=== PATIENT | female | born 1950 | race Caucasian/White ===

== ENCOUNTER 2019-11-17 11:58 | Outpatient (CLI) | payer MEDICARE, SELFPAY ==
--- NOTE | 2019-11-17 12:08 | CT_ITS ---
WS: [id number] CT ABDOMEN AND PELVIS WITH CONTRAST HISTORY: HEPATOMEGALY TECHNIQUE: Imaging performed of the abdomen and pelvis with IV contrast. Single phase imaging of the abdomen. Coronal and sagittal reformats are submitted. All CT scans at [facility] use at least one of these dose optimization techniques: automated exposure control; mA and/or kV adjustment per patient size (includes targeted exams where dose is matched to clinical indication); or iterativ e reconstruction. IV CONTRAST: Omnipaque 300; 95 mL IV. Oral contrast: No DLP: 1103.77 mGycm COMPARISON: 03/01/2015 Lower thorax: Lung bases are clear. Heart is normal size. Small hiatal hernia. Liver/biliary system: Surface of the liver is very slightly irregular nodular. No enhancing masses or bile duct dilatation. Surgical changes are progressed since 2014. Gallbladder: Prior cholecystectomy. Pancreas: Normal. Spleen: Spleen is top normal size. Adrenal glands: Normal. Right kidney: Normal. Left kidney: Normal. Aorta: Mild atherosclerosis of aorta. No aneurysm. Lymphadenopathy: None. Free fluid: None. GI tract: No GI tract obstruction. The appendix is normal. No significant diverticular disease. There is a large ventral abdominal wall hernia with a neck measuring 7.3 cm. Through the hernia is a loop of transverse colon which is not obstructed. There is some adjacent subcutaneous fat stranding within the hernia sac but no fluid. No ischemic changes in the GI tract. Abdominal wall: Ventral abdominal wall hernia containing transverse colon with no obstruction. Pelvis: Prior hysterectomy. No free fluid or adenopathy in the pelvis. LEFT adnexal well-circumscribe d low-attenuation mass is probably an ovarian cyst measuring 3.6 x 3.7 cm. Bones: LEFT convex curvature lumbar spine. No fracture. CT/CT abdomen pelvis w con* [id number] IMPRESSION: 1. Changes of mild cirrhosis. New since 03/01/2015. 2. Prior cholecystectomy and hysterectomy. 3. Large ventral abdominal wall hernia containing transverse colon. No obstruc tion or ischemic changes. 4. LEFT adnexal cyst.
[2019-11-17] MEDS: iohexol 300 mg/mL 100 mL Btl IV (12:49)
== END 2019-11-17 11:59 | disposition home or self-care (01) ==
LOC: RADWPI 12:05
PROVIDERS: Family Provider Family Medicine; PCP Family Medicine; Visit Provider Family Medicine
DX: R16.0 Hepatomegaly, not elsewhere classified (principal); K43.9 Ventral hernia without obstruction or gangrene
CPT/HCPCS: 74177; Q9967

== ENCOUNTER → 2023-03-30 15:33 | Outpatient (BNVA) | payer MEDICARE, SELFPAY | PROVIDERS: Family Provider Family Medicine; PCP Family Medicine; Visit Provider Family Medicine | DX: Z51.81 Encounter for therapeutic drug level monitoring (principal); E11.9 Type 2 diabetes mellitus without complications; E53.8 Deficiency of other specified B group vitamins; E55.9 Vitamin D deficiency, unspecified; R53.83 Other fatigue; Z13.220 Encounter for screening for lipoid disorders | CPT/HCPCS: 80053; 80061; 82306; 82607; 83036; 84443; 85025 ==

== ENCOUNTER → 2023-05-20 15:26 | Outpatient (BNVA) | payer MEDICARE, SELFPAY | PROVIDERS: PCP Family Medicine; Visit Provider Family Medicine | DX: Z51.81 Encounter for therapeutic drug level monitoring (principal); M79.10 Myalgia, unspecified site; I10 Essential (primary) hypertension | CPT/HCPCS: 80053; 83735; 85025 ==

== ENCOUNTER 2023-06-01 08:37 | Outpatient (CLI) | payer MEDICARE, SELFPAY ==
--- NOTE | 2023-06-01 08:50 | US_ITS ---
WS: [id number] RIGHT UPPER QUADRANT ULTRASOUND HISTORY: Cirrhosis, peripheral edema COMPARISON: 03/12/2016 Liver: 15.6 cm in length. Normal size liver. Coarse echotexture throughout with lobulated margin. Nod ular margin with no mass. No bile duct dilatation. Portal Vein: Normal hepatopetal flow with monophasic waveform. Gallbladder: Prior cholecystectomy. CBD: 0.7 cm Pancreas: Partially obscured. Right kidney: 9.5 cm in length. Normal size and echogenicity. No hydronephrosis or mass. Aorta and IVC: Unremarkable abdominal aorta and IVC. No ascites. IMPRESSION: 1. Prior cholecystectomy. 2. Cirrhotic liver. No mass. No ascites.
--- NOTE | 2023-06-01 08:50 | USCV_ITS ---
Jaylin Resendez Age: 73 Gender: F : 1950 Exam Date: 06/01/2023 09:03 Ordering Phys: Gildardo Childers MD Technologist: Khushbu Bustamante [place] [facility] [place]ication: VERY SWOLLEN LEGS BP: 120 / 60 HR: 74 Rhythm: Sinus Technical Quality: Adequate MEASUREMENTS (Male / Female) Normal Values 2D ECHO LV Diastolic Diameter PLAX 4.8 cm 4.2 - 5.9 / 3.9 - 5.3 cm LV Systolic Diameter PLAX 3.3 cm LV Chamber Size 3.9 cm IVS Diastolic Thickness 1.0 cm 0.6 - 1.0 / 0.6 - 0.9 cm IVS Systolic Thickness 1.3 cm LVPW Diastolic Thickness 1.4 cm 0.6 - 1.0 / 0.6 - 0.9 cm LVPW Systolic Thickness 1.5 cm RV Chamber Size 3.5 cm LVOT Diameter 2.0 cm LV Ejection Fraction 2D Teich 49.7 % LV Ejection Fraction MOD 2C 33.9 % LV Ejection Fraction 2C AL 33.2 % LA Diameter 4.2 cm LA Width 3.1 cm LA Height 4.5 cm RA Width 3.3 cm RA Height 3.9 cm Aorta at Sinotubular Diameter 3.0 cm IVC Diameter 1.8 cm M-MODE Aortic Annulus Diameter 3.3 cm LA Ao Ratio MM 1.5 MV E Point Septal Separation 0.4 cm DOPPLER AV Peak Velocity 178.0 cm/s LVOT Peak Velocity 105.0 cm/s AV Area Cont Eq vti 2.0 cm squared AV Area Cont Eq pk 1.9 cm squared MV Area PHT 3.6 cm squared Mitral E to A Ratio 1.1 MV E' Velocity 48.5 cm/s Mitral E to MV E' Ratio 11.0 Mitral E to LV E' Lateral Ratio 9.7 Mitral E to LV E' Septal Ratio 12.8 TR Peak Velocity 165.6 cm/s TR Peak Gradient 11.0 mmHg TR Mean Velocity 137.4 cm/s TR Mean Gradient 7.9 mmHg TR Velocity Time Integral 44.0 cm TV Peak E Velocity 56.0 cm/s Right Atrial Pressure 3.0 mmHg Pulmonary Artery Systolic Pressu 14.0 mmHg RV Acceleration Time 0.3 s RV Ejection Time 0.4 s RV AcT/ET 0.6 FINDINGS Left Ventricle Normal left ventricular size and systolic function, EF 60 %. (visual). Mild concentric left-ventricular hypertrophy. Right Ventricle Possibly of normal size and ejection fraction Right Atrium Possibly of normal size Left Atrium Possibly of normal size Mitral Valve Moderate mitral annular calcification. Aortic Valve No gross abnormalities noted Tricuspid Valve No gross abnormalities noted Pulmonic Valve Pulmonic valve not well visualized. Pericardium No pericardial effusion. Aorta Normal aortic annulus size. IVC Normal inferior vena cava. CONCLUSIONS Normal left ventricular size and systolic function, EF 60 %. (visual). Mild concentric left-ventricular hypertrophy. Possibly normal cardiac chamber sizes. Normal RV size ejection fraction There is no pericardial effusion. Possibly normal PA pressure-could not be evaluated properly because of the poor Doppler signals Technically somewhat limited study. Dr Symone Ellis MD FACC (Electronically Signed) Final Date: 03 June 2023 09:14 S
--- NOTE | 2023-06-01 08:52 | CT_ITS ---
WS: [id number] CT ABDOMEN AND PELVIS NONCONTRAST HISTORY: LLQ ABD PAIN TECHNIQUE: Imaging performed through the abdomen and pelvis. Coronal and sagittal reformats are submi tted. All CT scans at [facility] use at least one of these dose optimization techniques: auto mated exposure control; mA and/or kV adjustment per patient size (includes targeted exams where dose is matched to clinical indication); or iterative reconstruction. DLP: 1634.23 mGy.cm COMPARISON: 11/17/2019 Lower thorax: Lung bases are clear. Visualized heart is normal. Small hiatal hernia. Liver: Nodular margin of the liver consistent with cirrhosis. No mass identified on this unenhanced e xam. Gallbladder: Prior cholecystectomy. Pancreas: Negative noncontrast evaluation. Spleen: Enlarged spleen at 13.9 cm in length. Splenic varices are noted in the LEFT upper quadrant. Adrenal glands: Normal. No mass. Right kidney: Normal size kidney with no mass or hydronephrosis. Left kidney: Normal size kidney with no mass or hydronephrosis. Aorta: Mild atherosclerosis abdominal aorta with no aneurysm. No free fluid, intraperitoneal air or significant lymphadenopathy. GI tract: Stomach contains a small amount of oral contrast. No small bowel obstruction. Diffuse moder ate constipation and fecal retention. Moderate-sized ventral abdominal wall hernia contains a loop of colon but there is no obstruction at this time. This is a redundant loop placing the patient at incr eased risk for incarceration. No significant diverticular disease. Abdominal wall: Moderate ventral abdominal wall hernia with herniating loop of colon. No obstruction. Pelvis: Prior hysterectomy. There is mild presacral soft tissue but I believe this is artifact due to patient's body habitus. 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 IMPRESSION: 1. Cirrhosis with evidence for portal hypertension. 2. Prior cholecystectomy and hysterectomy. 3. Moderate size ventral abdominal wall hernia contains a loop of colon. No obstruction at this time . 4. No ascites. 5. Diffuse moderate constipation.
[2023-06-01] MEDS: iohexol 350 mg/mL 500 mL Btl (per mL) PO (10:48)
--- NOTE | 2023-06-01 11:34 | XR_ITS ---
WS: [id number] Left hip, AP and frog-leg views, 06/01/2023 Clinical Data: Left hip pain Comparison: None. Findings: No fractures or dislocations are seen. The hip joint is intact. No left hip narrowing, erosion, scler osis or fragmentation of the left femoral head is seen. The soft tissues are not remarkable. The samantha cent pelvis is normal. Impression: Negative left hip. Tonnis classification: grade 0: normal radiographs
== END 2023-06-01 08:38 | disposition home or self-care (01) ==
LOC: RAD 08:37
PROVIDERS: PCP Family Medicine; Visit Provider Family Medicine
DX: K74.60 Unspecified cirrhosis of liver; R60.9 Edema, unspecified; R01.1 Cardiac murmur, unspecified; M25.552 Pain in left hip; R10.32 Left lower quadrant pain; K76.6 Portal hypertension; K43.9 Ventral hernia without obstruction or gangrene; K59.09 Other constipation
CPT/HCPCS: 73502; 74176; 76705; 93306; Q9967

== ENCOUNTER 2023-07-02 19:13 | Outpatient (CLI) | payer MEDICARE, SELFPAY | END 2023-07-02 19:14 | disposition home or self-care (01) | LOC: LAB 19:14 | PROVIDERS: PCP Family Medicine; Visit Provider Family Medicine | DX: Z01.89 Encounter for other specified special examinations (principal) | CPT/HCPCS: 87070; 87077; 87186 ==

== ENCOUNTER → 2023-07-13 13:04 | Outpatient (BNVA) | payer MEDICARE, SELFPAY | PROVIDERS: PCP Family Medicine; Visit Provider Thoracic Surgery (Cardiothoracic Vascular Surgery) | DX: E11.52 Type 2 diabetes mellitus with diabetic peripheral angiopathy with gangrene (principal); E11.622 Type 2 diabetes mellitus with other skin ulcer; L97.812 Non-pressure chronic ulcer of other part of right lower leg with fat layer exposed; E11.621 Type 2 diabetes mellitus with foot ulcer; L89.612 Pressure ulcer of right heel, stage 2 | CPT/HCPCS: 11042; 11045; 99213 ==

== ENCOUNTER → 2023-07-27 13:32 | Outpatient (BNVA) | payer MEDICARE, SELFPAY | PROVIDERS: PCP Family Medicine; Visit Provider Nurse Practitioner Family | DX: E11.52 Type 2 diabetes mellitus with diabetic peripheral angiopathy with gangrene (principal); E11.622 Type 2 diabetes mellitus with other skin ulcer; L97.812 Non-pressure chronic ulcer of other part of right lower leg with fat layer exposed; L97.412 Non-pressure chronic ulcer of right heel and midfoot with fat layer exposed; E11.621 Type 2 diabetes mellitus with foot ulcer | CPT/HCPCS: 11042; 11045 ==

== ENCOUNTER → 2023-08-30 11:25 | Outpatient (BNVA) | payer MEDICARE, SELFPAY | PROVIDERS: PCP Family Medicine; Visit Provider Family Medicine | DX: Z51.81 Encounter for therapeutic drug level monitoring (principal); L97.919 Non-pressure chronic ulcer of unspecified part of right lower leg with unspecified severity | CPT/HCPCS: 80053; 85025; 86141 ==

== ENCOUNTER 2023-10-04 11:03 | Outpatient (CLI) | payer MEDICARE, SELFPAY | END 2023-10-04 11:04 | disposition home or self-care (01) | PROVIDERS: PCP Family Medicine; Visit Provider Family Medicine | DX: L03.115 Cellulitis of right lower limb (principal); L97.919 Non-pressure chronic ulcer of unspecified part of right lower leg with unspecified severity | CPT/HCPCS: 87070 ==

== ENCOUNTER 2024-02-18 15:36 | Outpatient (CLI) | payer MEDICARE, SELFPAY | END 2024-02-18 15:37 | disposition home or self-care (01) | PROVIDERS: PCP Family Medicine; Visit Provider Family Medicine | DX: L97.211 Non-pressure chronic ulcer of right calf limited to breakdown of skin (principal) | CPT/HCPCS: 87070; 87077; 87186 ==

== ENCOUNTER → 2024-03-15 14:59 | Outpatient (BNVA) | payer MEDICARE, SELFPAY | PROVIDERS: PCP Family Medicine; Visit Provider Family Medicine | DX: Z00.00 Encounter for general adult medical examination without abnormal findings; E53.8 Deficiency of other specified B group vitamins; R53.81 Other malaise; R53.83 Other fatigue; E11.9 Type 2 diabetes mellitus without complications; L89.609 Pressure ulcer of unspecified heel, unspecified stage; L97.909 Non-pressure chronic ulcer of unspecified part of unspecified lower leg with unspecified severity; E55.9 Vitamin D deficiency, unspecified | CPT/HCPCS: 82306; 82607; 83036; 84443; 86141 ==

== ENCOUNTER → 2024-09-25 15:19 | Outpatient (BNVA) | payer MEDICARE, SELFPAY | PROVIDERS: PCP Family Medicine; Visit Provider Family Medicine | DX: Z00.00 Encounter for general adult medical examination without abnormal findings (principal); Z13.6 Encounter for screening for cardiovascular disorders; E11.9 Type 2 diabetes mellitus without complications; Z51.81 Encounter for therapeutic drug level monitoring; E55.9 Vitamin D deficiency, unspecified | CPT/HCPCS: 80053; 80061; 82306; 83036; 85025 ==

== ENCOUNTER → 2024-10-31 13:49 | Outpatient (BNVA) | payer MEDICARE, SELFPAY | PROVIDERS: PCP Family Medicine; Visit Provider Thoracic Surgery (Cardiothoracic Vascular Surgery) | DX: E11.52 Type 2 diabetes mellitus with diabetic peripheral angiopathy with gangrene (principal); E11.622 Type 2 diabetes mellitus with other skin ulcer; L97.812 Non-pressure chronic ulcer of other part of right lower leg with fat layer exposed; E11.621 Type 2 diabetes mellitus with foot ulcer; L97.411 Non-pressure chronic ulcer of right heel and midfoot limited to breakdown of skin; I89.0 Lymphedema, not elsewhere classified | CPT/HCPCS: 11042; 29581; 99203; A6252; A6253 ==

== ENCOUNTER → 2024-11-02 15:48 | Outpatient (BNVA) | payer MEDICARE, SELFPAY | PROVIDERS: PCP Family Medicine; Visit Provider Thoracic Surgery (Cardiothoracic Vascular Surgery) | DX: I89.0 Lymphedema, not elsewhere classified (principal); L89.613 Pressure ulcer of right heel, stage 3 | CPT/HCPCS: 29581; A6210; A6251; A6253 ==

== ENCOUNTER → 2024-11-07 13:36 | Outpatient (BNVA) | payer MEDICARE, SELFPAY | PROVIDERS: PCP Family Medicine | DX: E11.52 Type 2 diabetes mellitus with diabetic peripheral angiopathy with gangrene (principal); E11.622 Type 2 diabetes mellitus with other skin ulcer; L97.812 Non-pressure chronic ulcer of other part of right lower leg with fat layer exposed; E11.621 Type 2 diabetes mellitus with foot ulcer; L89.611 Pressure ulcer of right heel, stage 1 | CPT/HCPCS: 97597; A6251 ==

== ENCOUNTER → 2024-11-14 14:23 | Outpatient (BNVA) | payer MEDICARE, SELFPAY | PROVIDERS: PCP Family Medicine; Visit Provider Thoracic Surgery (Cardiothoracic Vascular Surgery) | DX: E11.52 Type 2 diabetes mellitus with diabetic peripheral angiopathy with gangrene (principal); E11.621 Type 2 diabetes mellitus with foot ulcer; L97.411 Non-pressure chronic ulcer of right heel and midfoot limited to breakdown of skin; E11.622 Type 2 diabetes mellitus with other skin ulcer; L97.812 Non-pressure chronic ulcer of other part of right lower leg with fat layer exposed | CPT/HCPCS: 11042; 97597 ==

== ENCOUNTER → 2024-11-21 13:45 | Outpatient (BNVA) | payer MEDICARE, SELFPAY | PROVIDERS: PCP Family Medicine; Visit Provider Thoracic Surgery (Cardiothoracic Vascular Surgery) | DX: E11.52 Type 2 diabetes mellitus with diabetic peripheral angiopathy with gangrene (principal); E11.622 Type 2 diabetes mellitus with other skin ulcer; L97.812 Non-pressure chronic ulcer of other part of right lower leg with fat layer exposed; E11.621 Type 2 diabetes mellitus with foot ulcer; L89.611 Pressure ulcer of right heel, stage 1 | CPT/HCPCS: 11042; 87070; 87176; 87205; 97597; A6197; A6251 ==

== ENCOUNTER → 2024-11-24 10:18 | Outpatient (BNVA) | payer MEDICARE, SELFPAY | PROVIDERS: PCP Family Medicine; Visit Provider Thoracic Surgery (Cardiothoracic Vascular Surgery) | DX: E11.621 Type 2 diabetes mellitus with foot ulcer (principal); L89.613 Pressure ulcer of right heel, stage 3; I89.0 Lymphedema, not elsewhere classified | CPT/HCPCS: 11042; 29581; 97597; A6197; A6253 ==

== ENCOUNTER → 2024-11-29 10:06 | Outpatient (BNVA) | payer MEDICARE, SELFPAY | PROVIDERS: PCP Family Medicine; Visit Provider Thoracic Surgery (Cardiothoracic Vascular Surgery) | DX: E11.621 Type 2 diabetes mellitus with foot ulcer (principal); L89.613 Pressure ulcer of right heel, stage 3; I89.0 Lymphedema, not elsewhere classified | CPT/HCPCS: A6197; A6253 ==

== ENCOUNTER → 2024-12-06 14:19 | Outpatient (BNVA) | payer MEDICARE, SELFPAY | PROVIDERS: PCP Family Medicine; Visit Provider Thoracic Surgery (Cardiothoracic Vascular Surgery) | DX: E11.52 Type 2 diabetes mellitus with diabetic peripheral angiopathy with gangrene (principal); E11.622 Type 2 diabetes mellitus with other skin ulcer; L97.811 Non-pressure chronic ulcer of other part of right lower leg limited to breakdown of skin; E11.621 Type 2 diabetes mellitus with foot ulcer; L89.611 Pressure ulcer of right heel, stage 1 | CPT/HCPCS: 11042; A6197; A6250; A6251; J9999 ==

== ENCOUNTER 2024-12-09 14:36 | Inpatient (IN) | payer MEDICARE, SELFPAY ==
--- OUTSIDE RECORDS SUMMARY | 2024-07-13 10:20 | XMS_ITS ---
Author Organization [facility] Address [address] [place], [place] [id number] Care Team Providers Care Construction Manager Name Role Phone Gildardo Childers MD Primary Care Provider Boris Conway MD, Dawson Unavailable [phone] Allergies No Known Allergies REASON FOR VISIT Patient states she is here today for low back pain. Medications Medication SIG (Take, Route, Frequency, Duration) Notes Start Date End Date Status OxyCODONE Hydrochloride 15 mg 1 tab orally Q4H prn pain (max 4/day; hold within 4H of planned sleep) for 28 days Do not fill prior to 08/10/24. ICD-10: G89.29 07/13/2024 Active sulfamethoxazole-trimetho prim 800 mg-160 mg 1 tab(s) orally every 12 hours for 10 day(s) 03/09/2024 Active OxyCODONE Hydrochloride 15 mg 1 tab orally Q4H prn pain (max 4/day; hold within 4H of planned sleep) for 28 days ICD-10: G89.29 07/13/2024 Active Vitamin D3 5000 intl units as directed orally once a day for 30 day(s) 02/18/2021 Active spironolactone 25 mg 1 tab orally once daily for 30 day(s) Active omeprazole 20 mg 1 cap(s) orally once a day for 30 day(s) 03/09/2024 Active omeprazole 40 mg 1 cap orally once a day Active simvastatin 5 mg 1 tab orally once a day (at bedtime) Active ProAir HFA 90 mcg/inh 2 puffs inhaled every 6 hours Active prochlorperazine 10 mg 1 tab po orally Q ID prn nausea Active Lotemax 0.5% 2 gtt in each affected eye 4 times a day Active Lotrisone 0.05%-1% 1 paulino applied topically BID, PRN for 10 day(s) Active metoprolol 50 mg 1 tab orally BID for 30 day(s) Active Nitroquick 0.4 mg 1 tab sublingually every 5 minutes for 3 dose(s) Active Imitrex 1 tab orally PRN onset of migraine for 1 dose(s) Active Combivent 90 mcg-18 mcg/inh 1 puff inhaled Q4H, PRN for 30 day(s) Active cyclobenzaprine 10 mg 1 tab(s) orally 3 times a day Active hydrochlorothiazide-lisin opril 10 mg-12.5 mg 1 tab orally once a day for 7 day(s) Active doxycycline hyclate 100 mg 1 cap(s) orally 2 times a day for 10 day(s) Active gabapentin 100 mg 1 cap(s) orally 3 times a day for 30 day(s) Active BromSite 0.075% 1 gtt in each affected eye 2 times a day Active cefdinir 300 mg 1 cap(s) orally every 12 hours for 10 day(s) Active Social History alcohol Question Answer Notes Did you have a drink containing alcohol in the p ast year? No Points 0 Interpretation Negative Vital Signs Temperature 97.1 degrees Fahrenheit 07/13/20 24 Height 63 in 07/13/2024 Oximetry 96 % 07/13/2024 Encounters Encounter Location Date Provider Diagnosis [facility], [address] [id number] 07/13/2024 Dawson Conway Vertebrogenic low ba ck pain M54.51 ; Other chronic pain G89.29 and Other sleep disorders G47.8 Assessments Encounter Date Diagnosis (ICD Code) Assessment Notes Treatment Notes Treatment Clinical Notes Section Notes 07/13/2024 Vertebrogenic low back pain (ICD-10 - M54.51) Chronic lumbar spine pain. 07/13/2024 Other chronic pain (ICD-10 - G89.29) Patient reports that transition to oxycodone 15 mg oxycodone tablet better controls her pain symptoms. Plan to continue oral opioid medication management. 07/13/2024 Other sleep disorders (ICD-10 - G47.8) Plan to continue to restrict opioid use in relation to sleep for safety concerns. 07/13/2024 Other The service was provided by ANJANA Cheema, as part of the ongoing care plan established by Dawson Conway MD, who was present in the office for direct supervision during the encounter. Plan Of Treatment Medication Medication Name Sig Start Date Stop Date Notes OxyCODONE Hydrochloride 15 mg 1 tab orally Q4H prn pain (max 4/day; hold within 4H of planned sleep) for 28 days 07/13/2024 Do not fill prior to 08/10/24. ICD-10: G89.29 OxyCODONE Hydrochloride 15 mg 1 tab orally Q4H prn pain (max 4/day; hold within 4H of planned sleep) for 28 days 07/13/2024 ICD-10: G89.29 Treatment Notes Assessment Notes Vertebrogenic low back pain Chronic lumb ar spine pain. Other chronic pain Patient reports that transition to oxycodone 15 mg oxycodone tablet better controls her pain symptoms. Plan to continue oral opioid medication management. Other sleep disorders Plan to continue t o restrict opioid use in relation to sleep for safety concerns. Other The service was prov ided by ANJANA Cheema, as part of the ongoing care plan established by Dawson Conway MD, who was present in the office for direct supervision during the encounter. Next Appt Details Follow Up: 2 month Rx visit. , Reason: Progress Notes * Phoebe RESENDEZy LDOB:[birth year] (74 yo F)Acc No.[id number]:07/13/2024 Patient: Jaylin BARKER Provider: Landon Conway :1950 A ge:74 Y S ex:Female Date:07/13/2024 Address:[address] [place] [address], [id number] Pcp:Gildardo Childers MD Subjective: * Chief Complaints: * P atient states she is here today for low back pain. * HPI: L umbar Spine: 74 year old female presents with c/o pain f or c hronic duration i n the bilateral low back. This pain is described as constant and sharp. This pain extends into the hips and LLE. The back pain is aggravated by all weight bearing and getting in / out of any vehicle. This pain cannot be alleviated. P atient confirms she still has a wound on her right heel and right leg that won't heal. She confirms she doesn't attend a Wound Clinic or have Home Health at this time. She states that she, her , and her daughter are managing her wounds. N o change since last office visit.. c /o tingling/numbness i ntermittently in the BLE. c /o weakness i n the BLE. Denies : injury:. Denies : previous surgery:. P revious Therapy: Previous therapy: h eat therapy with some benefit; history of a p hysical therapy visit (only attended once); home exercises for back and hip pain with history of s light benefit; chiropractic t herapy for back pain with history of some benefit (not lasting benefit); vibration / massage therapy for back and hip pain with history of slight benefit; prior injection therapy via this facility has included cervical, lumbar and sacral interventions (see prior documentation). Medication history: B iofreeze topical applications; toradol; Endocet; Fiorinal; Dupont 10/325 (max 8/day); tramadol 50 mg; Vicodin; hydromorphone 2 mg, hydromorphone 4 mg; tizanidine 4 mg; fentanyl 50 mcg/hr. M edications: OxyIR (oxycodone) 1 5 mg, 1 tab, orally, Q4H prn pain (max 4/day; hold within 4H of planned sleep), 28 days, 112, Refills 0.Notes: Prescriptions given (2) on 05/18/24. Patient reports good benefit, as evidenced by improved ability to get around in the house, with quantity 5 remaining and 0 prescription(s) remaining.Last fill date 06/15/24. N on Compliance/Failure to Follow Treatment Agreement: Failure to bring prescribed medications to appointments: o n 12/15/11, 03/26/11, 08/06/10, 07/17/10, 04/24/10, 01/23/10, 04/02/09. Failure to take medication as prescribed: o n 02/20/13.? No-Show to Appointments: 1 08/11/21. Showing late to appointments: > 10 minutes on 11/28/12, 3.5 hours late on 04/24/10. * ROS: 1 4 point review of systems negative. * Medical History: * Surgical History: R ight shoulder surgery Breast implant surgery Breast implants removed (due to rupture) Hysterectomy, total Colonoscopy Cholecystectomy Esophageal dilation Left cataract surgery, performed by Dr. Cuadra, 08/04/17Right cataract surgery, performed by Dr. Cuadra, 08/17/17 * Hospitalization/Major Diagno stic Procedure: C olitis, 01/20/10-01/22/10Fall, bladder infection, treated at [facility], 06/18/22-06/21/22UTI and dehydration, treated at [facility], 04/2023 * Family History: F ather: 64 yrs, myocardial infarction. M other: 76 yrs, myocardial infarction. * Social History: T obacco use : nonsmoker. M arijuana: no. M eth: no. O ther illicit drug use: no. A lcohol Did you have a drink containing alcohol in the past year? N o Points 0 Interpretation N egative M arried: yes. C hildren: 2. E ducation: some college. O ccupation: no, retired. E xercise: 1-2 days per week. H istory of welding/metal work: no. T ravel: no. * Medications: T akingBromSite(bromfenac ophthalmic) 0.075% solution 1 gtt in each affected eye 2 times a day cefdinir 300 mg capsule 1 cap(s) orally every 12 hours Combivent(albuterol-ipratropium) 90 mcg-18 mcg/inh aerosol with adapter 1 puff inhaled Q4H, PRN cyclobenzaprine 10 mg tablet 1 tab(s) orally 3 times a day doxycycline hyclate 100 mg capsule 1 cap(s) orally 2 times a day gabapentin 100 mg capsule 1 cap(s) orally 3 times a day hydrochlorothiazide-lisinopril 10 mg-12.5 mg tablet 1 tab orally once a day Imitrex(SUMAtriptan) tablet 1 tab orally PRN onset of migraine Lotemax(loteprednol ophthalmic) 0.5% suspension 2 gtt in each affected eye 4 times a day Lotrisone(betamethasone-clotrimazole topical) 0.05%-1% cream 1 paulino applied topically BID, PRN metoprolol 50 mg tablet, extended release 1 tab orally BID Nitroquick(nitroglycerin) 0.4 mg tablet 1 tab sublingually every 5 minutes omeprazole 40 mg delayed release capsule 1 cap orally once a day omeprazole 20 mg delayed release capsule 1 cap(s) orally once a day OxyCODONE Hydrochloride 15 mg tablet 1 tab orally Q4H prn pain (max 4/day; hold within 4H of planned sleep) ProAir HFA(albuterol) 90 mcg/inh aerosol 2 puffs inhaled every 6 hours prochlorperazine 10 mg tablet 1 tab po orally QID prn nausea simvastatin 5 mg tablet 1 tab orally once a day (at bedtime) spironolactone 25 mg tablet 1 tab orally once daily sulfamethoxazole-trimethoprim 800 mg-160 mg tablet 1 tab(s) orally every 12 hours Vitamin D3(cholecalciferol) 5000 intl units capsule as directed orally once a day Medication List reviewed and reconciled with the patientTaking BromSite(bromfenac ophthalmic) 0.075% solution 1 gtt in each affected eye 2 times a day Taking cefdinir 300 mg capsule 1 cap(s) orally every 12 hours Taking Combivent(albuterol- ipratropium) 90 mcg-18 mcg/inh aerosol with adapter 1 puff inhaled Q4H, PRN Taking cyclobenzaprine 10 mg tablet 1 tab(s) orally 3 times a day Taking doxycycline hyclate 100 mg capsule 1 cap(s) orally 2 times a day Taking gabapentin 100 mg capsule 1 cap(s) orally 3 times a day Taking hydrochlorothiazide-lisinopril 10 mg-12.5 mg tablet 1 tab orally once a day Taking Imitrex(SUMAtriptan) tablet 1 tab orally PRN onset of migraine Taking Lotemax(loteprednol ophthalmic) 0.5% suspension 2 gtt in each affected eye 4 times a day Taking Lotrisone(betamethasone-clotrimazole topical) 0.05%-1% cream 1 paulino applied topically BID, PRN Taking metoprolol 50 mg tablet, extended release 1 tab orally BID Taking Nitroquick(nitroglycerin) 0.4 mg tablet 1 tab sublingually every 5 minutes Taking omeprazole 40 mg delayed release capsule 1 cap orally once a day Taking omeprazole 20 mg delayed release capsule 1 cap(s) orally once a day Taking OxyCODONE Hydrochloride 15 mg tablet 1 tab orally Q4H prn pain (max 4/day; hold within 4H of planned sleep) Taking ProAir HFA(albuterol) 90 mcg/inh aerosol 2 puffs inhaled every 6 hours Taking prochlorperazine 10 mg tablet 1 tab po orally QID prn nausea Taking simvastatin 5 mg tablet 1 tab orally once a day (at bedtime) Taking spironolactone 25 mg tablet 1 tab orally once daily Taking sulfamethoxazole-trimethoprim 800 mg-160 mg tablet 1 tab(s) orally every 12 hours Taking Vitamin D3(cholecalciferol) 5000 intl units capsule as directed orally once a day Medication List reviewed and reconciled with the patient * Allergies: N .K.D.A.no[Allergies Verified] Objective: * Vitals: P ain Scale: 6 (0-10), Pain average: 7-8, Pain Range: 5-10, Ht:63in, Wt: Not Taken - Curbside visit, HR:74, RR:18, Temp:97.1, SaO2: 96. * Physical Examination: G eneral: General appearence: w ell groomed, well nourished. Head: n ormocephalic. E yes: Conjunctiva: w ithout injection. E NT: Hearing: g rossly intact. C hest: Shape and expansion: n ormal expansion, equal bilaterally, respirations even and unlabored. E xtremities: Edema: l ymphedema BLE; dressings dry and intact RLE. N eurological: Psychiatric: a lert and conversant. M usculoskeletal: Gait: p resents in private vehicle (evaluated curbside due to immobility / inability to bear weight). Outcome Assessment: F indings: N egative, care plan not required D ermatology: Skin inspection: p ink, warm, dry, and intact. Therapeutic Interventions: Assessment: * Assessment: 1. V ertebrogenic low back pain - M54.51 (Primary) 2 . O ther chronic pain - G89.29 3 . O ther sleep disorders - G47.8 Plan: * Treatment: 2. O ther chronic pain Notes: Patient reports that transition to oxycodone 15 mg oxycodone tablet better controls her pain symptoms. Plan to continue oral opioid medication management. 3. O ther sleep disorders Notes: Plan to continue to restrict opioid use in relation to sleep for safety concerns. 4. O thers Continue OxyCODONE Hydrochloride tablet, 15 mg, 1 tab, orally, Q4H prn pain (max 4/day; hold within 4H of planned sleep), 28 days, 112, Refills 0, Notes to Pharmacist: ICD-10: G89.29; C ontinue OxyCODONE Hydrochloride tablet, 15 mg, 1 tab, orally, Q4H prn pain (max 4/day; hold within 4H of planned sleep), 28 days, 112, Refills 0, Notes to Pharmacist: Do not fill prior to 08/10/24. ICD-10: G89.29. Notes: The service was provided by ANJANA Cheema, as part of the ongoing care plan established by Dawson Conway MD, who was present in the office for direct supervision during the encounter.? Prescription Drug Monitoring Program (PDMP) PDMP report request complete d on 07/12/2024 12:29:59 AM - Dawson Conway * Procedure Codes: * Preventive Medicine: Counseling: P ain Management: Follow-up Plan documented: Y es Pain Screenin Screening / Special Tests: F all Risk Screening: N o falls in the past year as of: 07/13/2024 * Follow Up: 2 month Rx visit. * Images: * REPAIRER TOWER Sign off status: Completed true * Provider: Landon Conway Date: 09/13/2023 Generated for Sina gonzalez/Janeth/Alyssa on: 0 12/09/2024 02:41 PM CDT History and Physical Notes * HPI (History of Present Illness) Category Sub-Category Detail Notes Category Not es Lumbar Spine injury: tingling/numbness intermittently in th e BLE pain in the bilateral low back. This pain is described as constant and sharp. This pain extends into the hips and LLE. The back pain is aggravated by all weight bearing and getting in / out of any vehicle. This pain cannot be alleviated. Patient confirms she still has a wound on her right heel and right leg that won't heal. She confirms she doesn't attend a Wound Clinic or have Home Health at this time. She states that she, her , and her daughter are managing her wounds. No change since last office visit. previous surgery: weakness in the BLE Medications OxyIR (oxycodone) 15 mg, 1 tab, orally, Q4H prn pain (max 4/day; hold within 4H of planned sleep), 28 days, 112, Refills 0. Notes: Prescriptions given (2) on 05/18/24. Patient reports good benefit, as evidenced by improved ability to get around in the house, with quantity 5 remaining and 0 prescription(s) remaining. Last fill date 06/15/24 Previous Therapy Previous therapy: heat therapy with some benefit; history of a physical therapy visit (only attended once); home exercises for back and hip pain with history of slight benefit; chiropractic therapy for back pain with history of some benefit (not lasting benefit); vibration / massage therapy for back and hip pain with history of slight benefit; prior injection therapy via this facility has included cervical, lumbar and sacral interventions (see prior documentation) Medication history: Biofreeze topical ap plications; toradol; Endocet; Fiorinal; Dupont 10/325 (max 8/day); tramadol 50 mg; Vicodin; hydromorphone 2 mg, hydromorphone 4 mg; tizanidine 4 mg; fentanyl 50 mcg/hr Non Compliance/Failure to Fo llow Treatment Agreement Failure to bring prescribed medications to appointments: on 12/15/11, 03/26/11, 08/06/10, 07/17/10, 04/24/10, 01/23/10, 04/02/09 Failure to take medication as prescribed : on 02/20/13 No-Show to Appointments: 06/11/22 Showing late to appointments: > 10 minut es on 11/28/12, 3.5 hours late on 04/24/10 Physical Examination Category Sub-Category Detail Notes Section Note s ENT Hearing: grossly intact Extremities Edema: lymphedema BLE; dressings dry and intact RLE Chest Shape and expansion: normal expa nsion, equal bilaterally, respirations even and unlabored Neurological Psychiatric: alert and conversant Musculoskeletal Gait: presents in priv ate vehicle (evaluated curbside due to immobility / inability to bear weight) Outcome Assessment: Findings:: Negative, care pl an not required Dermatology Skin inspection: pink, warm, dry, and int act General General appearence: well groomed, well no urished Head: normocephalic Eyes Conjunctiva: without injection
--- OUTSIDE RECORDS SUMMARY | 2024-09-07 10:30 | XMS_ITS ---
Author Organization [facility] Address [address] [place], [place] [id number] Care Team Providers Care Automobile Sales Consultant Name Role Phone Gildardo Childers MD Primary Care Provider Boris Conway MD, Dawson Unavailable [phone] Allergies No Known Allergies REASON FOR VISIT Patient states she is here today for low back pain. Medications Medication SIG (Take, Route, Frequency, Duration) Notes Start Date End Date Status sulfamethoxazole-trimetho prim 800 mg-160 mg 1 tab(s) orally every 12 hours for 10 day(s) 03/09/2024 Active Vitamin D3 5000 intl units as directed orally once a day for 30 day(s) 02/18/2021 Active prochlorperazine 10 mg 1 tab po orally Q ID prn nausea Active simvastatin 5 mg 1 tab orally once a day (at bedtime) Active spironolactone 25 mg 1 tab orally once daily for 30 day(s) Active metoprolol 50 mg 1 tab orally BID for 30 day(s) Active Nitroquick 0.4 mg 1 tab sublingually every 5 minutes for 3 dose(s) Active omeprazole 40 mg 1 cap orally once a day Active omeprazole 20 mg 1 cap(s) orally once a day for 30 day(s) 03/09/2024 Active ProAir HFA 90 mcg/inh 2 puffs inhaled every 6 hours Active Lotrisone 0.05%-1% 1 paulino applied topically BID, PRN for 10 day(s) Active gabapentin 100 mg 1 cap(s) orally 3 times a day for 30 day(s) Active hydrochlorothiazide-lisin opril 10 mg-12.5 mg 1 tab orally once a day for 7 day(s) Active Imitrex 1 tab orally PRN onset of migraine for 1 dose(s) Active Lotemax 0.5% 2 gtt in each affected eye 4 times a day Active BromSite 0.075% 1 gtt in each affected eye 2 times a day Active cefdinir 300 mg 1 cap(s) orally every 12 hours for 10 day(s) Active Combivent 90 mcg-18 mcg/inh 1 puff inhaled Q4H, PRN for 30 day(s) Active cyclobenzaprine 10 mg 1 tab(s) orally 3 times a day Active doxycycline hyclate 100 mg 1 cap(s) orally 2 times a day for 10 day(s) Active OxyCODONE Hydrochloride 15 mg 1 tab orally Q4H prn pain (max 4/day; hold within 4H of planned sleep) for 28 days Do not fill prior to 10/05/24. ICD-10: G89.29 09/07/2024 Active OxyCODONE Hydrochloride 15 mg 1 tab orally Q4H prn pain (max 4/day; hold within 4H of planned sleep) for 28 days ICD-10: G89.29 09/07/2024 Active Social History AUDIT-C (Standard) Question Answer Notes Did you have a drink containing alcohol in the p ast year? No Points 0 Interpretation Negative Vital Signs Temperature 97.7 degrees Fahrenheit 09/07/19 25 Height 63 in 09/07/2024 Oximetry 96 % 09/07/2024 Encounters Encounter Location Date Provider Diagnosis [facility], [address] [id number] 09/07/2024 Dawson Conway Vertebrogenic low ba ck pain M54.51 ; Other chronic pain G89.29 and Other sleep disorders G47.8 Assessments Encounter Date Diagnosis (ICD Code) Assessment Notes Treatment Notes Treatment Clinical Notes Section Notes 09/07/2024 Vertebrogenic low back pain (ICD-10 - M54.51) Chronic lumbar spine pain. 09/07/2024 Other chronic pain (ICD-10 - G89.29) Patient reports that taking her pain medication allows her to transfer with greater ease. Plan to continue oral opioid medication management. 09/07/2024 Other sleep disorders (ICD-10 - G47.8) Plan to continue to restrict opioid use in relation to sleep for safety concerns. 09/07/2024 Other The service was provided by ANJANA [...] 4H of planned sleep) for 28 days 09/07/2024 Do not fill prior to 10/05/24. ICD-10: G89.29 OxyCODONE Hydrochloride 15 mg 1 tab orally Q4H prn pain (max 4/day; hold within 4H of planned sleep) for 28 days 09/07/2024 ICD-10: G89.29 Treatment Notes Assessment Notes Vertebrogenic low back pain Chronic lumb ar spine pain. Other chronic pain Patient reports that taking her pain medication allows her to transfer with greater ease. Plan to continue oral opioid medication management. [...] Rx visit. , Reason: Progress Notes * Jaylin RESENDEZ LDOB:[birth year] (74 yo F)Acc No.[id number]:09/07/2024 Patient: Jaylin BARKER Provider: Landon Conway :1950 A ge:74 Y S ex:Female Date:09/07/2024 Address:[address] [place] [address], [place], [place] Pcp:Gildardo Childers MD Subjective: * Chief Complaints: * P atient states she is here today for low back pain. * HPI: L umbar Spine: 74 year old female presents with c/o pain f or c hronic duration i n the bilateral low back. This pain is described as constant aching with intermittent sharpness. This pain extends into the hips and LLE. The back pain is aggravated by all weight bearing and getting in / out of any vehicle. This pain cannot be alleviated by anything, except with pain medication use. P atient confirms she still has a wound on her right heel and right leg that have not healed. She confirms she has new insurance and is working on getting a new Home Health Agency for wound care.. c /o tingling/numbness i ntermittently in the BLE. c /o weakness i n the BLE. Denies : injury:. Denies : previous surgery:. P revious Therapy: Previous therapy: h eat therapy with history of some benefit; history of a p hysical [...] B iofreeze topical applications; toradol; Endocet; Fiorinal; Matthews 10/325 (max 8/day); tramadol 50 mg; Vicodin; hydromorphone 2 mg, hydromorphone 4 mg; tizanidine 4 mg; fentanyl 50 mcg/hr. M edications: OxyIR (oxycodone) 1 5 mg, 1 tab, orally, Q4H prn pain (max 4/day; hold within 4H of planned sleep), 28 days, 112, Refills 0.Notes: Prescriptions given (2) on 07/13/24. Patient reports good benefit, as evidenced by improved ability to move around in wheelchair and attend doctor's appointments, with quantity 4 remaining and 0 prescription(s) remaining.Last fill date 08/10/24. N on Compliance/Failure to Follow Treatment Agreement: [...] olitis, 01/20/10-01/22/10Fall, bladder infection, treated at [facility], 06/18/22-06/21/22UTI and dehydration, treated at [facility], 04/2023 * Family History: F ather: 64 yrs, myocardial infarction. M other: 76 yrs, myocardial infarction. * Social History: T obacco use : nonsmoker. M arijuana: no. M eth: no. O ther illicit drug use: no. M arried: yes. C hildren: 2. E ducation: some college. O ccupation: no, retired. E xercise: 1-2 days per week. H istory of welding/metal work: no. T ravel: no. A MONICO-C (Standard) Did you have a drink containing alcohol in the past year? N o Points 0 Interpretation N egative * Medications: T akingBromSite(bromfenac ophthalmic) 0.075% solution [...] Verified] Objective: * Vitals: P ain Scale: 8 (0-10), Pain average: 7-8, Pain Range: 6-9, Ht:63in, Wt: Not Taken - Curbside visit, HR:74, RR:18, Temp:97.7, SaO2: 96. * Physical Examination: G eneral: [...] due to immobility / inability to bear weight adequately). Outcome Assessment: F indings: N egative, care plan not required D ermatology: Skin inspection: p ink, warm, dry, and intact. Therapeutic Interventions: Assessment: * Assessment: 1. V ertebrogenic low back pain - M54.51 (Primary) 2 . O ther chronic pain - G89.29 3 . O ther sleep disorders - G47.8 Plan: * Treatment: 2. O ther chronic pain Notes: Patient reports that taking her pain medication allows her to transfer with greater ease. Plan to continue oral opioid medication management. [...] to Pharmacist: Do not fill prior to 10/05/24. ICD-10: G89.29. Notes: The service was provided by ANJANA Cheema, as part of the ongoing care plan established by Dawson Conway MD, who was present in the office for direct supervision during the encounter.? Prescription Drug Monitoring Program (PDMP) PDMP report request complete d on 09/06/2024 09:19:29 PM - Dawson Conway * Procedure Codes: * Preventive Medicine: Counseling: P ain Management: Follow-up Plan documented: Y es Pain Screenin Screening / Special Tests: F all Risk Screening: N o falls in the past year as of: 09/07/2024 * Follow Up: 2 month Rx visit. * Images: * EM ENGINEER Sign off status: Completed true * Provider: Landon Conway Date: 0 09/07/2024 Generated for Sina gonzalez/Janeth/Alyssa on: 0 12/09/2024 02:41 PM CDT History and Physical Notes * HPI (History of Present Illness) Category Sub-Category Detail Notes Category Not es Lumbar Spine injury: tingling/numbness intermittently in th e BLE pain in the bilateral low back. This pain is described as constant aching with intermittent sharpness. This pain extends into the hips and LLE. The back pain is aggravated by all weight bearing and getting in / out of any vehicle. This pain cannot be alleviated by anything, except with pain medication use. Patient confirms she still has a wound on her right heel and right leg that have not healed. She confirms she has new insurance and is working on getting a new Home Health Agency for wound care. previous surgery: weakness in the BLE Medications OxyIR (oxycodone) 15 mg, 1 tab, orally, Q4H prn pain (max 4/day; hold within 4H of planned sleep), 28 days, 112, Refills 0. Notes: Prescriptions given (2) on 07/13/24. Patient reports good benefit, as evidenced by improved ability to move around in wheelchair and attend doctor's appointments, with quantity 4 remaining and 0 prescription(s) remaining. Last fill date 08/10/24 Previous Therapy Previous therapy: heat therapy with history of some benefit; history of a physical therapy [...] Biofreeze topical ap plications; toradol; Endocet; Fiorinal; Matthews 10/325 (max 8/day); tramadol 50 mg; Vicodin; [...] due to immobility / inability to bear weight adequately) Outcome Assessment: Findings:: Negative, care pl an not required Dermatology Skin inspection: pink, warm, dry, and int act General General appearence: well groomed, well no urished Head: normocephalic Eyes Conjunctiva: without injection
--- OUTSIDE RECORDS SUMMARY | 2024-11-02 10:20 | XMS_ITS ---
Author Organization [email or web address] Address [address] [place], [place] [id number] Care Team Providers Care Creative Services Designer Name Role Phone Gildardo Childers MD Primary Care Provider Boris Conway MD, Dawson Unavailable [phone] Allergies No Known Allergies REASON FOR VISIT Patient states she is here today for low back pain. Medications Medication SIG (Take, Route, Frequency, Duration) Notes Start Date End Date Status sulfamethoxazole-trimetho prim 800 mg-160 mg 1 tab(s) orally every 12 hours for 10 day(s) 03/09/2024 Active Vitamin D3 5000 intl units as directed orally once a day for 30 day(s) 02/18/2021 Active oxyCODONE 15 mg 1 tab orally Q4H prn pain (max 4/day; hold within 4H of planned sleep) for 28 days ICD-10: G89.29 11/02/2024 Active oxyCODONE 15 mg 1 tab orally Q4H prn pain (max 4/day; hold within 4H of planned sleep) for 28 days Do not fill prior to 11/30/24. ICD-10: G89.29 11/02/2024 Active OxyCODONE Hydrochloride 15 mg 1 tab orally Q4H prn pain (max 4/day; hold within 4H of planned sleep) for 28 days Do not fill prior to 12/28/24. ICD-10: G89.29 11/02/2024 Active simvastatin 5 mg 1 tab orally once a day (at bedtime) Active spironolactone 25 mg 1 tab orally once daily for 30 day(s) Active ProAir HFA 90 mcg/inh 2 puffs inhaled every 6 hours Active prochlorperazine 10 mg 1 tab po orally Q ID prn nausea Active OxyCODONE Hydrochloride 15 mg 1 tab orally Q4H prn pain (max 4/day; hold within 4H of planned sleep) for 28 days 09/07/2024 Active metoprolol 50 mg 1 tab orally BID for 30 day(s) Active Nitroquick 0.4 mg 1 tab sublingually every 5 minutes for 3 dose(s) Active Lotrisone 0.05%-1% 1 paulino applied topically BID, PRN for 10 day(s) Active omeprazole 20 mg 1 cap(s) orally once a day for 30 day(s) 03/09/2024 Active omeprazole 40 mg 1 cap orally once a day Active Lotemax 0.5% 2 gtt in each affected eye 4 times a day Active hydrochlorothiazide-lisin opril 10 mg-12.5 mg 1 tab orally once a day for 7 day(s) Active Imitrex 1 tab orally PRN onset of migraine for 1 dose(s) Active doxycycline hyclate 100 mg 1 cap(s) orally 2 times a day for 10 day(s) Active gabapentin 100 mg 1 cap(s) orally 3 times a day for 30 day(s) Active BromSite 0.075% 1 gtt in each affected eye 2 times a day Active Combivent 90 mcg-18 mcg/inh 1 puff inhaled Q4H, PRN for 30 day(s) Active cyclobenzaprine 10 mg 1 tab(s) orally 3 times a day Active cefdinir 300 mg 1 cap(s) orally every 12 hours for 10 day(s) Active Social History AUDIT-C (Standard) Question Answer Notes Did you have a drink containing alcohol in the p ast year? No Points 0 Interpretation Negative Vital Signs Temperature 97.2 degrees Fahrenheit 11/03/19 25 Height 63 in 11/02/2024 Oximetry 93 % 11/02/2024 Encounters Encounter Location Date Provider Diagnosis [facility], [id number] [place], [place] [id number] 11/02/2024 Dawson Conway Vertebrogenic low ba ck pain M54.51 ; Other chronic pain G89.29 and Other sleep disorders G47.8 Assessments Encounter Date Diagnosis (ICD Code) Assessment Notes Treatment Notes Treatment Clinical Notes Section Notes 11/02/2024 Vertebrogenic low back pain (ICD-10 - M54.51) Chronic lumbar spine pain. 11/02/2024 Other chronic pain (ICD-10 - G89.29) Patient reports that taking her pain medication allows her to transfer with greater ease. Plan to continue oral opioid medication management. 11/02/2024 Other sleep disorders (ICD-10 - G47.8) Plan to continue to restrict opioid use in relation to sleep for safety concerns. 11/02/2024 Other The service was provided by ANJANA Cheema, as part of the ongoing care plan established by Dawson Conway MD, who was present in the office for direct supervision during the encounter. Patient was provided with a letter at today's visit informing patient that this clinic is closing due to Dr. Conway's mcc; see scanned document. Terminal prescriptions were given to the patient along with tapering instructions. Plan Of Treatment Medication Medication Name Sig Start Date Stop Date Notes oxyCODONE 15 mg 1 tab orally Q4H prn pain (max 4/day; hold within 4H of planned sleep) for 28 days 11/02/2024 ICD-10: G89.29 oxyCODONE 15 mg 1 tab orally Q4H prn pain (max 4/day; hold within 4H of planned sleep) for 28 days 11/02/2024 Do not fill prior to 11/30/24. ICD-10: G89.29 OxyCODONE Hydrochloride 15 mg 1 tab orally Q4H prn pain (max 4/day; hold within 4H of planned sleep) for 28 days 11/02/2024 Do not fill prior to 12/28/24. ICD-10: G89.29 Treatment Notes Assessment Notes Vertebrogenic low back pain Chronic lumb ar spine pain. Other chronic pain Patient reports that taking her pain medication allows her to transfer with greater ease. Plan to continue oral opioid medication management. Other sleep disorders Plan to continue t o restrict opioid use in relation to sleep for safety concerns. Other The service was provided by ANJANA Cheema, as part of the ongoing care plan established by Dawson Conway MD, who was present in the office for direct supervision during the encounter. Patient was provided with a letter at today's visit informing patient that this clinic is closing due to Dr. Conway's mcc; see scanned document. Terminal prescriptions were given to the patient along with tapering instructions. Next Appt Details Follow Up: None., Reason: Progress Notes * Jaylin RESENDEZ LDOB:[birth year] (74 yo F)Acc No.[id number]:11/02/2024 Patient: Jaylin BARKER Provider: Landon Conway :1950 A ge:74 Y S ex:Female Date:11/02/2024 Address:[address] [place] [address], [facility] Pcp:Gildardo Childers MD Subjective: * Chief Complaints: [...] by anything, except with pain medication use. c /o tingling/numbness i ntermittently in the [...] B iofreeze topical applications; toradol; Endocet; Fiorinal; [place] 10/325 (max 8/day); tramadol 50 mg; Vicodin; hydromorphone 2 mg, hydromorphone 4 mg; tizanidine 4 mg; fentanyl 50 mcg/hr. M edications: OxyIR (oxycodone) 1 5 mg, 1 tab, orally, Q4H prn pain (max 4/day; hold within 4H of planned sleep), 28 days, 112, Refills 0.Notes: Prescriptions given (2) on 09/07/24. Patient reports good benefit, as evidenced by improved ability to stand and walk with walker, with quantity 15 remaining and 0 prescription(s) remaining.Last fill date 10/06/24. N on Compliance/Failure to Follow Treatment Agreement: [...] C olitis, 01/20/10-01/22/10Fall, bladder infection, treated at [facility], 06/18/22-06/21/22UTI and dehydration, treated at [facility], 04/2023 * Family History: F ather: 64 [...] Verified] Objective: * Vitals: P ain Scale: 8.5 (0-10), Pain average: 7, Pain Range: 5-9, Ht:63in, Wt: Not Taken - Curbside visit, HR:75, RR:18, Temp:97.2, SaO2: 93. * Physical Examination: G eneral: General appearence: [...] D ermatology: Skin inspection: p ink, warm, and dry; patient reports pressure ulcers on her heel and the back of her leg. Therapeutic Interventions: Assessment: * Assessment: 1. V [...] for safety concerns. 4. O thers Continue oxyCODONE tablet, 15 mg, 1 tab, orally, Q4H prn pain (max 4/day; hold within 4H of planned sleep), 28 days, 112, Refills 0, Notes to Pharmacist: ICD-10: G89.29; C ontinue oxyCODONE tablet, 15 mg, 1 tab, orally, Q4H prn pain (max 4/day; hold within 4H of planned sleep), 28 days, 112, Refills 0, Notes to Pharmacist: Do not fill prior to 11/30/24. ICD-10: G89.29; C ontinue OxyCODONE Hydrochloride tablet, 15 mg, 1 tab, orally, Q4H prn pain (max 4/day; hold within 4H of planned sleep), 28 days, 112, Refills 0, Notes to Pharmacist: Do not fill prior to 12/28/24. ICD-10: G89.29.? Notes: The service was provided by ANJANA Cheema, as part of the ongoing care plan established by Dawson Conway MD, who was present in the office for direct supervision during the encounter. Patient was provided with a letter at today's visit informing patient that this clinic is closing due to Dr. Conway's mcc; see scanned document. Terminal prescriptions were given to the patient along with tapering instructions. Prescription Drug Monitoring Program (PDMP) PDMP report request complete d on 11/01/2024 06:39:38 PM - Dawson Conway * Procedure Codes: * Preventive Medicine: Counseling: P yesenia Management: Follow-up Plan documented: Y es Pain Screenin .5 Screening / Special Tests: F all Risk Screening: N o falls in the past year as of: 11/02/2024 * Follow Up: N one. * Images: * Sign off status: Completed true * Provider: Landon Conway Date: 0 11/02/2024 Generated for Sina gonzalez/Janeth/Alyssa on: 0 12/09/2024 [...] alleviated by anything, except with pain medication use previous surgery: weakness in the BLE Medications OxyIR (oxycodone) 15 mg, 1 tab, orally, Q4H prn pain (max 4/day; hold within 4H of planned sleep), 28 days, 112, Refills 0. Notes: Prescriptions given (2) on 09/07/24. Patient reports good benefit, as evidenced by improved ability to stand and walk with walker, with quantity 15 remaining and 0 prescription(s) remaining. Last fill date 10/06/24 Previous Therapy Previous therapy: heat therapy with [...] Biofreeze topical ap plications; toradol; Endocet; Fiorinal; [place] 10/325 (max 8/day); tramadol 50 mg; Vicodin; [...] not required Dermatology Skin inspection: pink, warm, and dry; patient reports pressure ulcers on her heel and the back of her leg General General appearence: well groomed, well no urished Head: normocephalic Eyes Conjunctiva: without injection
--- OUTSIDE RECORDS SUMMARY | 2024-12-09 14:41 | XMS_ITS | Encounter Summary ---
Author Organization [facility] Address [address] [place] [address] Care Team Providers Care Eyelet Riveter Name Role Phone Gildardo Childers MD Primary Care Provider [phone] Encounter Details Date Type Department Care Team (Late st Contact Info) Description 11/08/2006 Outpatient Historical [facility] OBGYNRandy Diaznn Power [address] [place] [address] Nayana Garcia MD [address] [place] [address] Atrophic Vaginitis (Primary Dx); Uterovaginal Prolapse, Incomplete Social History Tobacco Use Types Packs/Day Years Used Date Smoking Tobacco: Never Assessed Comments Unknown Sex and Gender Information Value Date Recorded Sex Assigned at Not on file Legal 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
--- OUTSIDE RECORDS SUMMARY | 2024-12-09 14:41 | XMS_ITS | Encounter Summary ---
Author Organization [facility] Address [address] [place] [address] Care Team Providers Care Professor Of Chemical Engineering Name Role Phone Gildardo Childers MD Primary Care Provider [phone] Reason for Referral * Radiology Services (Routine) - Closed Specialty Diagnoses / Procedures Referred By Contac t Referred To Contact Diagnoses GEORGE (nonalcoholic steatohepatitis) Procedures US ABDOMEN LIMITED Jaya Montana MD Referral ID Status Reason Start Date Expiration Date Visits Re quested Visits Authorized [id number] Closed 09/22/2018 10/23/2019 1 1 MFITTER Encounter Details Date Type Department Care Team (Latest Contact Info) Description 09/22/[address] [facility] Ultrasound [address] 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 Exam: US ABDOMEN LIMITED Date/Time of Exam: 10/13/2018 1:05 PM Reason For Exam: See Diagnosis Diagnosis: GEORGE (nonalcoholic steatohepatitis) Findings: COMPARISON: 07/28/2016 LIVER There is moderate increased parenchymal echogenicity. There is nodular contour of the liver suggesting cirrhosis. GALLBLADDER Surgically absent. BILE DUCTS Common bile duct 5.1 mm. PANCREAS Visualized portions unremarkable. Body and tail obscured by overlying bowel gas. RIGHT KIDNEY Length 11.3 cm Normal size and morphology. No hydronephrosis. No nephrolithiasis.No concerning renal lesion. PERITONEUM / ASCITES Not visualized IMPRESSION: 1. Increased hepatic parenchymal echogenicity which can represent fibrosis or steatosis. There is nodular contour consistent with cirrhosis. No focal hepatic lesion. 2. Otherwise unremarkable exam. [id number] Narrative Procedure Note Felipe Montoya MD - 10/14/2018 IMPRESSION: Please see below. Exam: US ABDOMEN LIMITED Date/Time of Exam: 10/13/2018 1:05 PM Reason For Exam: See Diagnosis Diagnosis: GEORGE (nonalcoholic steatohepatitis) Findings: COMPARISON: 07/28/2016 LIVER There is moderate increased parenchymal echogenicity. There is nodular contour of the liver suggesting cirrhosis. GALLBLADDER Surgically absent. BILE DUCTS Common bile duct 5.1 mm. PANCREAS Visualized portions unremarkable. Body and tail obscured by overlying bowel gas. RIGHT KIDNEY Length 11.3 cm Normal size and morphology. No hydronephrosis. No nephrolithiasis.No concerning renal lesion. PERITONEUM / ASCITES Not visualized IMPRESSION: 1. Increased hepatic parenchymal echogenicity which can represent fibrosis or steatosis. There is nodular contour consistent with cirrhosis. No focal hepatic lesion. 2. Otherwise unremarkable exam. [id number] Jaya Montana MD US ORDERABLES Final Result documented in this encounter Visit Diagnoses Diagnosis GEORGE (nonalcoholic steatohepatitis) Other chronic nonalcoholic liver disease GEORGE (nonalcoholic steatohepatitis) Other chronic nonalcoholic liver disease documented in this encounter Care Teams Professor Of Chemical Engineering Relationship Specialty Start Date End Date Gildardo Childers MD [address] [place] [phone] PCP - General Family Practice 02/05/16 documented as of this encounter
--- OUTSIDE RECORDS SUMMARY | 2024-12-09 14:41 | XMS_ITS | Patient Health Record ---
Author Organization [facility] Address [address] [place], [place] [address] Care Team Providers Care Fur Finisher Tailor Name Role Phone Alvarado NAGEL, Gildardo Primary Care Provider Unavailjohan Conway MD, Dawson Unavailable [phone] Papi CHECK PROCESSORAngelica Unavailable [phone] Allergies No Known Allergies Results Component Value Reference Range Notes Saliva Swab Toxicology Scree n Reviewed date:05/22/2024 07:44:36 AM Interpretation:Consistent Performing Lab: Notes/Report: Consistent Saliva Swab Toxicology Scree n Reviewed date:05/22/2024 07:44:36 AM Interpretation:Consistent Performing Lab: Notes/Report: Consistent [facility] Results Reviewed date:05/22/2024 07:44:46 AM Interpretation:Consistent Performing Lab:[id number] [facility], [address] [address] Lidia Reynaga MD Notes/Report: [facility], [address] [facility], [facility], [place] [address], , L ab Director: Lidia Reynaga MD, CLIA ID# [id number] OPIATES SCREEN negative 40 ng/mL OXYCODONE SCREEN negative 40 ng/mL Oxycodone positive-21.338 1 ng/mL Noroxycodone Quantification negative 2 ng/mL Oxymorphone negative 1 ng/mL Buprenorphine Quantification negative 1 ng/mL Norbuprenorphine Quantification negative 2 ng/mL Fentanyl Quantification negative 0.2 ng/mL Norfentanyl Quantification negative 1 ng/mL METHADONE SCREEN negative 50 ng/mL Tapentadol Quantification negative 5 ng/mL Tramadol Quantification negative 5 ng/mL Q-Kofqoojig-Wizwbkaj Quantification negative 5 ng/ mL BENZODIAZEPINES SCREEN negative 20 ng/mL AMPHETAMINES SCREEN negative 50 ng/mL Carisoprodol Quantification negative 5 ng/mL Meprobamate Quantification negative 5 ng/mL Naltrexone Quantification negative 1 ng/mL Naltrexol (Naltrexone metabo lite) Quantification negative 1 ng/mL Pregabalin Quantification negative 5 ng/mL METHAMPHETAMINES SCREEN negative 50 ng/mL COCAINE METABOLITES SCREEN negative 20 ng/mL CANNABINOIDS SCREEN negative 8 ng/mL MDMA negative 5 ng/mL 6-IVONNE (Heroin metabolite) Quantification negative 1 ng/mL PHENCYCLIDINE SCREEN negative 10 ng/mL Embedded PDF Reviewed date:05/22/2024 07:44:11 AM Interpretation: Performing Lab: Notes/Report: [facility], [address] [facility], [place] [address], , L ab Director: Lidia Reynaga MD, CLIA ID# [id number] Reason For Referral No Information Medications Medication SIG (Take, Route, Frequency, Duration) Notes Start Date End Date Status metoprolol 50 mg 1 tab orally BID for 30 day(s) Active BromSite 0.075% 1 gtt in each affected eye 2 times a day Active Nitroquick 0.4 mg 1 tab sublingually every 5 minutes for 3 dose(s) Active Lotemax 0.5% 2 gtt in each affected eye 4 times a day Active sulfamethoxazole-trimetho prim 800 mg-160 mg 1 tab(s) orally every 12 hours for 10 day(s) 03/09/2024 Active Lotrisone 0.05%-1% 1 paulino applied topically BID, PRN for 10 day(s) Active Vitamin D3 5000 intl units as directed orally once a day for 30 day(s) 02/18/2021 Active oxyCODONE 15 mg 1 tab orally Q4H prn pain (max 4/day; hold within 4H of planned sleep) for 28 days ICD-10: G89.29 11/02/2024 Active hydrochlorothiazide-lisin opril 10 mg-12.5 mg 1 tab orally once a day for 7 day(s) Active simvastatin 5 mg 1 tab orally once a day (at bedtime) Active Imitrex 1 tab orally PRN onset of migraine for 1 dose(s) Active spironolactone 25 mg 1 tab orally once daily for 30 day(s) Active doxycycline hyclate 100 mg 1 cap(s) orally 2 times a day for 10 day(s) Active ProAir HFA 90 mcg/inh 2 puffs inhaled every 6 hours Active oxyCODONE 15 mg 1 tab orally Q4H prn pain (max 4/day; hold within 4H of planned sleep) for 28 days Do not fill prior to 11/30/24. ICD-10: G89.29 11/02/2024 Active gabapentin 100 mg 1 cap(s) orally 3 times a day for 30 day(s) Active prochlorperazine 10 mg 1 tab po orally Q ID prn nausea Active Combivent 90 mcg-18 mcg/inh 1 puff inhaled Q4H, PRN for 30 day(s) Active omeprazole 20 mg 1 cap(s) orally once a day for 30 day(s) 03/09/2024 Active cyclobenzaprine 10 mg 1 tab(s) orally 3 times a day Active OxyCODONE Hydrochloride 15 mg 1 tab orally Q4H prn pain (max 4/day; hold within 4H of planned sleep) for 28 days 09/07/2024 Active omeprazole 40 mg 1 cap orally once a day Active OxyCODONE Hydrochloride 15 mg 1 tab orally Q4H prn pain (max 4/day; hold within 4H of planned sleep) for 28 days Do not fill prior to 12/28/24. ICD-10: G89.29 11/02/2024 Active cefdinir 300 mg 1 cap(s) orally every 12 hours for 10 day(s) Active Social History AUDIT-C (Standard) Question Answer Notes Did you have a drink containing alcohol in the p ast year? No Points 0 Interpretation Negative Problems Problem Type SNOMED Code ICD Code Onset Dates Problem Status W/U Status Risk Notes Problem Solitary sacroiliitis (536470332) Sacroiliitis (720.2) Active confirmed Problem Cervical spondylosis without myelopathy (537597917) Cervical spondylosis without myelopathy (721.0) Active confirmed Problem Lumbosacral spondylosis without myelopathy (56433399) Lumbosacral spondylosis without myelopathy (721.3) Active confirmed Problem Displacement of lumbar intervertebral disc without myelopathy (70956085) Lumbar (w/out myelopathy) intervertebral disc disorder (722.10) Active confirmed Problem Sleep dysfunction with sleep stage disturbance (101667497) Dysfunctions associated with sleep stages or arousal from sleep (780.56) Active confirmed Problem Low back pain (780078039) Low back pain (724.2) Active confirmed Problem Neck pain (11347085) Neck pain (723.1) Active confirmed Problem Long-term drug therapy (712169472) LONG-TERM USE MEDS NEC (V58.69) Active confirmed R/O substance abuse Problem Anxiety state (140393127) Anxiety State, other, specified: procedure related (300.09) Active confirmed Problem Displacement of cervical intervertebral disc without myelopathy (27662596) Cervical (w/out myelopathy) intervertebral disc disorder (722.0) Active confirmed Problem Solitary sacroiliitis (124375959) Sacroiliitis, not elsewhere classified (M46.1) Active confirmed Problem Low back pain (579067402) Low back pain (M54.5) Active confirmed Problem Lumbosacral spondylosis without myelopathy (68433096) Spondylosis without myelopathy or radiculopathy, lumbar region (M47.816) Active confirmed Problem High risk drug monitoring status (900191127) 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 (Z79.891) Active confirmed Problem Anxiety disorder (798877048) Other specified anxiety disorders (F41.8) Active confirmed Problem Sleep disorder (37251386) Other sleep disorders (G47.8) Active confirmed Problem Chronic pain (81213406) Other chronic pain (G89.29) Active confirmed Problem Cervical spondylosis without myelopathy (086480658) Spondylosis without myelopathy or radiculopathy, cervical region (M47.812) Active confirmed Problem Cervical radiculopathy (56919223) Cervical disc disorder with radiculopathy, unspecified cervical region (M50.10) Active confirmed Problem Cervical disc disorder with radiculopathy (346236608) Cervical disc disorder with radiculopathy, mid-cervical region (M50.12) Active confirmed Problem Radiculopathy due to lumbar intervertebral disc disorder (915757859793873 ) Intervertebral disc disorders with radiculopathy, lumbar region (M51.16) Active confirmed Problem Cervicalgia (06504903) Cervicalgia (M54.2) Active confirmed Problem Myalgia (77559753) Myalgia (M79.1) Active confirmed Problem Muscle pain (81304584) Myalgia, other site (M79.18) Active confirmed Problem Pain in lumbar spine (299642647) Vertebrogenic low back pain (M54.51) Active confirmed Vital Signs Temperature 97.2 degrees Fahrenheit 11/02/2024 Oximetry 93 % 11/02/2024 Height 63 in 11/02/2024 Encounters Encounter Location Date Provider Diagnosis [facility], [place] [address] [place], [place] [id number] 01/06/2024 Angelica Turpin Vertebrogenic low ba ck pain M54.51 ; Other chronic pain G89.29 ; Other sleep disorders G47.8 and skilled nursing (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 of 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 Z79.891 [facility], [address] [id number] 03/09/2024 Angelica Turpin Vertebrogenic low ba ck pain M54.51 ; Other chronic pain G89.29 ; Other sleep disorders G47.8 and 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 Z79.891 [facility], [address] [id number] 05/18/2024 Dawson Robelheavenly Vertebrogenic low ba ck pain M54.51 ; Other chronic pain G89.29 ; Other sleep disorders G47.8 and 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 Z79.891 [facility], [facility] [address] [place] [id number] 07/13/2024 Dawson Conway Vertebrogenic low ba ck pain M54.51 ; Other chronic pain G89.29 and Other sleep disorders G47.8 [facility], [facility] [address] [place], [place] [id number] 09/07/2024 Dawson Robelheavenly Vertebrogenic low ba ck pain M54.51 ; Other chronic pain G89.29 and Other sleep disorders G47.8 [facility], [facility] [address] [place] [id number] 11/02/2024 Dawson Conway Vertebrogenic low ba ck pain M54.51 ; Other chronic pain G89.29 and Other sleep disorders G47.8 [facility], [place] [id number] [place], [place] [id number] 04/06/2024 Dawson Conway Assessments Encounter Date Diagnosis (ICD Code) Assessment Notes Treatment Notes Treatment Clinical Notes Section Notes 01/06/2024 Vertebrogenic low back pain (ICD-10 - M54.51) Chronic lumbar spine pain. 03/09/2024 Vertebrogenic low back pain (ICD-10 - M54.51) Chronic lumbar spine pain. 05/18/2024 Other chronic pain (ICD-10 - G89.29) Patient reports that taking her pain medication does not adequately control her pain. She would like to try a 15 mg oxycodone tablet instead of a 10 mg. Plan to continue oral opioid medication management with dose changes. 05/18/2024 Vertebrogenic low back pain (ICD-10 - M54.51) Chronic lumbar spine pain. 07/13/2024 Other chronic pain (ICD-10 - G89.29) Patient reports that transition to oxycodone 15 mg oxycodone tablet better controls her pain symptoms. Plan to continue oral opioid medication management. 07/13/2024 Vertebrogenic low back pain (ICD-10 - M54.51) Chronic lumbar spine pain. 09/07/2024 Vertebrogenic low back pain (ICD-10 - M54.51) Chronic lumbar spine pain. 11/02/2024 Vertebrogenic low back pain (ICD-10 - M54.51) Chronic lumbar spine pain. 11/02/2024 Other chronic pain (ICD-10 - G89.29) Patient reports that taking her pain medication allows her to transfer with greater ease. Plan to continue oral opioid medication management. 05/18/2024 Other sleep disorders (ICD-10 - G47.8) Plan to continue to restrict opioid use in relation to sleep for safety concerns. 09/07/2024 Other chronic pain (ICD-10 - G89.29) Patient reports that taking her pain medication allows her to transfer with greater ease. Plan to continue oral opioid medication management. 07/13/2024 Other sleep disorders (ICD-10 - G47.8) Plan to continue to restrict opioid use in relation to sleep for safety concerns. 03/09/2024 Other sleep disorders (ICD-10 - G47.8) Plan to continue to restrict opioid use in relation to sleep for safety concerns. 03/09/2024 Other chronic pain (ICD-10 - G89.29) Patient reports that taking her pain medication allows her to be more active. Plan to continue oral opioid medication management. 01/06/2024 Other sleep disorders (ICD-10 - G47.8) Patient has history of a sleep disorder with snoring. Patient also with history of presumed COPD and history of supplemental oxygen use. Borderline hypoxemia values have been noted upon review of prior sleep study report. Plan to continue to restrict opioid use in relation to sleep for safety concerns. 01/06/2024 Other chronic pain (ICD-10 - G89.29) Patient reports that she is not well tolerating the opioid taper; she is working hard at being compliant with the taper. Plan to continue oral opioid medication management with the slow opioid taper in progress. 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 This places the patient in the [facility]' ultra high risk category for total daily opioid usage. Plan slow opioid taper to a lower risk category as noted, above. 03/09/2024 skilled nursing (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 of 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 (ICD-10 - Z79.891) Patient has a total daily MED of 90. This places the patient in the [facility]' high risk category for total daily opioid usage. 2022 opioid (OUD) risk tool score = 0. This places the patient in the low risk category. 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 This places the patient in the low risk category. Plan oral fluid toxicology screen today to monitor for presence of any unprescribed or illicit controlled substance(s), as well as prescribed oxycodone. 09/07/2024 Other sleep disorders (ICD-10 - G47.8) Plan to continue to restrict opioid use in relation to sleep for safety concerns. 11/02/2024 Other sleep disorders (ICD-10 - G47.8) Plan to continue to restrict opioid use in relation to sleep for safety concerns. 01/06/2024 Other Patient states she is being treated by home health for wounds on her calf. 03/09/2024 Other Patient states she is being treated by home health for the wounds on her right calf. Plan change to oxycodone 10 mg #160 should [facility] or [facility] be unable to get hydromorphone 4 mg tablets to dispense. 05/18/2024 Other The service was provided by ANJANA Cheema, as part of the ongoing care plan established by Dawson Conwya MD, who was present in the office for direct supervision during the encounter. 07/13/2024 Other The service was provided by ANJANA Cheema, as part of the ongoing care plan established by Dawson Conway MD, who was present in the office for direct supervision during the encounter. 09/07/2024 Other The service was provided by ANJANA Cheema, as part of the ongoing care plan established by Dawson Conway MD, who was present in the office for direct supervision during the encounter. 11/02/2024 Other The service was provided by ANJANA Cheema, as part of the ongoing care plan established by Dawson Conway MD, who was present in the office for direct supervision during the encounter. Patient was provided with a letter at today's visit informing patient that this clinic is closing due to Dr. Conway's fdc; see scanned document. Terminal prescriptions were given to the patient along with tapering instructions. Plan Of Treatment No Information Insurance Providers Payer Name Payer Address Payer Phone Subscriber Number Group Number Insured Name Patient Relationship to Insured Coverage Start Date Coverage End Date [employer] MEDICARE ADVANTAGE [address] [address] [place] [address] [phone] [id number] Jaylin Resendez Self - patient is the insured Medical (General) History Medical History History ICD Code Chronic pain Low back pain Lumbar spondylosis and disc disease Sacroiliitis Neck pain Cervical spondylosis and disc disease Migraine headaches Fibromyalgia Scoliosis Osteoporosis Hypertension Esophageal stricture Hyperlipidemia Diabetes mellitus type II Enlarged liver CAD, presumed (history of NTG Rx) Right lower extremity wounds, prior home health care for wound care Cirrhosis of the liver Albuterol medication use (presumed COPD) Supplemental oxygen use Sleep disorder, snoring Obesity, morbid Surgical History Surgery Date(Month/Year) Right shoulder surgery Breast implant surgery Breast implants removed (due to rupture) Hysterectomy, total Colonoscopy Cholecystectomy Esophageal dilation Left cataract surgery, performed by Dr. Cuadra, 08/04/17 Right cataract surgery, performed by Dr. Cuadra, 08/17/17 Hospitalization History Reason Date(Month/Year) UTI and dehydration, treated at [facility], Fall, bladder infection, treated at [facility] , 06/18/22-06/21/22 Colitis, 01/20/10-01/22/10
--- OUTSIDE RECORDS SUMMARY | 2024-12-09 14:41 | XMS_ITS | Encounter Summary ---
Author Organization [facility] Address [address] [place] [address] Care Team Providers Care Candy Supervisor Name Role Phone Gildardo Childers MD Primary Care Provider [phone] Encounter Details Date Type Department Care Team (Late st Contact Info) Description 03/01/2017 Ancillary Orders [facility] Pre-Registration [place] CALL TO MAKE APPOINTMENT ONLY [address] [place] [address] Gildardo Childers MD [address] [place] [address] Social History Tobacco Use Types Packs/Day Years Used Date Smoking Tobacco: Former Cigarettes Comments:quit 10 years Alcohol Use Standard Drinks/Week Comments No 0 (1 standard drink = 0.6 oz pur e alcohol) Comments No Sex and Gender Information Value Date Recorded Sex Assigned at Not on file 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
--- OUTSIDE RECORDS SUMMARY | 2024-12-09 14:41 | XMS_ITS | Encounter Summary ---
Author Organization [facility] Address [address] [place] [address] Care Team Providers Care Documentation Analyst Name Role Phone Gildardo Childers MD Primary Care Provider [phone] Encounter Details Date Type Department Care Team (Latest Contact Info) Description 02/01/2008 Outpatient Historical [facility] [place] [address] [place] [phone] Jaya Montana MD NO ADDRESS ON FILE Unspecified Essential Hypertension Social History Tobacco Use Types Packs/Day Years Used Date Smoking Tobacco: Never Assessed Comments No Sex and Gender Information Value Date Recorded Sex Assigned at Not on file 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
--- OUTSIDE RECORDS SUMMARY | 2024-12-09 14:41 | XMS_ITS | Clinical Summary ---
Author Organization [facility] Address [address] Attn: [place] [address] Care Team Providers Care Stone Spreader Operator Name Role Phone Gildardo Childers MD Primary Care Provider [phone] Allergies No known active allergies Medications oxygen home delivery Administer in each nostril Home Oxygen Concentrator {yes no:136528} at L/M Rest, L/M Activity, L/M Sleep, Delivery Device: {GINO RX DME O2 DELIVERY DEVICE:02359990} Portability: {yes no:630425}, L/M Rest, L/M Activity, May evaluate for device best for patient needs(E system,home fill, conserving device)Maintain Sats: {GINO RX DME SPO2 GOAL:31605476},L ength of Need: {LENGTH OF NEED:59740421} months . 9 Active insulin detemir (LEVEMIR U-100 INSULIN SUBCUT) Inject 40 Units by subcutaneous injection. 9 Active lisinopriL (PRINIVIL) 10 mg tablet 9 Active bimatoprost (Lumigan) 0.01 % solution INSTILL 1 GTT QHS IN OD 2 9 Active omeprazole (PriLOSEC) 20 mg Capsule, Delayed Release(E.C.) Take 1 Capsule (20 mg) by mouth daily. 30 Capsule PRN 8 Active fentaNYL (DURAGESIC) 50 mcg/hr patch Apply 1 Patch to skin as directed every other day. 6 Active prochlorperazin e maleate (COMPAZINE) 10 mg tablet Take 10 mg by mouth every 8 hours as needed . 6 Active simvastatin (ZOCOR) 10 mg tablet Take 10 mg by mouth daily with supper . 6 Active Active Problems Problem Noted Date Diagnosed Date Follow-up examination, following unspecified lexx star 02/13/2011 Dysphagia 08/27/2008 Erosive esophagitis 01/17/2008 Nausea with vomiting 01/17/2008 Fatty liver 01/17/2008 Family History Medical History Relation Name Comments Colon Cancer Neg Hx Social History Tobacco Use Types Packs/Day Years Used Date Smoking Tobacco: Former Smokeless Tobacco: Never Comments:Quit smoking: quit 10 years Alcohol Use Standard Drinks/Week Comments No 0 (1 standard drink = 0.6 oz pur e alcohol) Comments Unknown Sex and Gender Information Value Date Recorded Sex Assigned at Not on file Legal Sex Female 5:53 AM 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 ACCOUNT EXECUTIVE Gender Identity Not on file Sexual Orientation Not on file Last Filed Vital Signs Vital Sign Reading Time Taken Comments Blood Pressure 140/68 09/04/2019 8:14 AM JUNIOR ACCOUNT EXECUTIVE Pulse 67 09/04/2019 8:14 AM JUNIOR ACCOUNT EXECUTIVE Temperature 37.4 C (99.4 F) 09/04/2019 7:11 AM JUNIOR ACCOUNT EXECUTIVE Respiratory Rate 18 09/04/2019 8:14 AM JUNIOR ACCOUNT EXECUTIVE Oxygen Saturation - - Inhaled Oxygen Concentration - - Weight 129.3 kg (285 lb) 07/14/2019 1:21 PM JUNIOR ACCOUNT EXECUTIVE Height 160 cm (5' 3 ) 07/14/2019 1:21 PM JUNIOR ACCOUNT EXECUTIVE Body Mass Index 50.49 07/14/2019 1:21 PM JUNIOR ACCOUNT EXECUTIVE Plan of Treatment Health Maintenance Due Date Last Done Comments UPPER GI ENDOSCOPY 1969 DTAP/TDAP/TD VACCINES (1 - Tdap) 1970 BREAST CANCER SCREENING 1991 FIT-DNA Q 3 years 1996 FIT/FOBT Q 1 year 1996 Flex Sig/CT Colonography Q 5 years 1996 PNEUMOCOCCAL VACCINE 50+ YEARS (1 of 1 - PCV) 05/12/20 ZOSTER VACCINE (1 of 2) 2001 OSTEOPOROSIS SCREENING 2016 COLORECTAL SCREENING 04/01/2020 04/01/2010 Colorectal Cancer Screening 04/01/2020 INFLUENZA VACCINE (#1) 2024 RSV VACCINE (60+ or ) (1 - 1-dose 75+ series) 2026 Care Teams Stone Spreader Operator Relationship Specialty Start Date End Date Gildardo Childers MD [address] [place] [phone] PCP - General Family Practice 02/05/16
--- OUTSIDE RECORDS SUMMARY | 2024-12-09 14:41 | XMS_ITS | Encounter Summary ---
Author Organization [facility] Address [address] [place] [address] Care Team Providers Care Parts Washer Name Role Phone Gildardo Childers MD Primary Care Provider [phone] Encounter Details Date Type Department Care Team (Latest Contact Info) Description 02/27/[address] 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
--- OUTSIDE RECORDS SUMMARY | 2024-12-09 14:41 | XMS_ITS | Encounter Summary ---
Author Organization [facility] Address [address] [place] [address] Care Team Providers Care Remote Broadcast Technician Name Role Phone Gildardo Childers MD Primary Care Provider [phone] Encounter Details Date Type Department Care Team (Late st Contact Info) Description 03/04/2017 Ancillary Orders [facility] Pre-Registration [place] CALL TO MAKE APPOINTMENT ONLY [address] [place] [address] Gildardo Childers MD [address] [place] [address] Social History Tobacco Use Types Packs/Day Years Used Date Smoking Tobacco: Former Cigarettes Comments:quit 10 years Alcohol Use Standard Drinks/Week Comments No 0 (1 standard drink = 0.6 oz pur e alcohol) Comments No Sex and Gender Information Value Date Recorded Sex Assigned at Not on file 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
--- OUTSIDE RECORDS SUMMARY | 2024-12-09 14:41 | XMS_ITS | Encounter Summary ---
Author Organization [facility] Address [address] [place] [address] Care Team Providers Care Training Specialist Name Role Phone Gildardo Childers MD Primary Care Provider [phone] Encounter Details Date Type Department Care Team (Latest Contact Info) Description 04/03/2008 Outpatient Historical [facility] Endoscopy [place] [address] [place] [address] Jaya Montana MD NO ADDRESS ON FILE Dysphagia, Unspecified; Unspecified Essential Hypertension; Unspecified Myalgia and Myositis Social History Tobacco Use Types Packs/Day Years Used Date Smoking Tobacco: Never Assessed Comments No Sex and Gender Information Value Date Recorded Sex Assigned at Not on file 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
--- OUTSIDE RECORDS SUMMARY | 2024-12-09 14:41 | XMS_ITS | Encounter Summary ---
Author Organization [facility] Address [address] [place] [address] Care Team Providers Care Helicopter Technician Name Role Phone Gildardo Childers MD Primary Care Provider [phone] Encounter Details Date Type Department Care Team (Latest Contact Info) Description 10/13/2004 Outpatient Historical [facility] Cardiac Flea Market Seller [address] [place] [address] Aly Chu MD [address] [place] [address] [address] [place] [phone] CORON ATHEROSCL EYAK CORON VESSEL (Primary Dx) Social History Tobacco Use Types Packs/Day Years Used Date Smoking Tobacco: Never Assessed Comments Unknown Sex and Gender Information Value Date Recorded Sex Assigned at Not on file Legal Sex Female 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 Gender Identity Not on file Sexual Orientation Not on file documented as of this encounter Plan of Treatment Not on file documented as of this encounter Procedures Procedure Name Priority Date/Time Associated Diagnosis Comments PT AND APTT Routine 10/13/2004 6:02 AM CUPBOARD BUILDER CBC WITHOUT DIFFERENTIAL Routine 10/13/2004 6:02 AM CUPBOARD BUILDER BASIC METABOLIC PANEL Routine 10/13/2004 6:02 AM CUPBOARD BUILDER documented in this encounter Results * PT AND APTT (10/13/2004 6:02 AM CUPBOARD BUILDER) PROTIME 13.6 12.4 - 14.9 Secs INTERFACE SYSTEM Comment: As of 04 note change in normal range. INR 1.0 INTERFACE SYSTEM Comment: Expected Values for INR: DVT/PE Goal INR 2.5; range 2.0 - 3.0 Valve Replacement Tissue Goal INR 2.5; range 2.0 - 3.0 Mechanical Goal INR 3.0; range 2.5 - 3.5 POST-PR Goal INR 2.5; range 2.0 - 3.0 or Goal 3.0; range 2.5 - 3.5 Atrial Fibrillation Goal INR 2.5; range 2.0 - 3.0 Ischemic Stroke Goal INR 2.5; range 2.0 - 3.0 For additional information see Guidelines for Anticoagulation available from the pharmacy Alyssa Marinelli D. PTT 27.6 24.3 - 37.5 Secs INTERFACE SYSTEM Comment:Therapeutic Range: 10/13/2004 6:02 AM CUPBOARD BUILDER us Aly Chu MD HEMATOLOGY ORDERABLES Final Re sult INTERFACE SYSTEM Refer to clinic/hospital department * (ABNORMAL) CBC WITHOUT DIFFERENTIAL (10/13/2004 6:02 AM CUPBOARD BUILDER) WBC 8.5 4.8 - 10.8 K/ul INTERFACE SYSTEM RBC 4.86 4.20 - 5.40 Mil/ul INTERFACE SYSTEM HEMOGLOBIN 14.8 12.0 - 16.0 g/dL INTERFACE SYSTEM HEMATOCRIT 45.1 36.0 - 46.0 % INTERFACE SYSTEM MCV 92.8 84.0 - 103.0 Fl INTERFACE SYSTEM MCH 30.5 27.0 - 34.0 pg INTERFACE SYSTEM MCHC 32.8 30.0 - 35.0 g/dL INTERFACE SYSTEM RDW 12.1 11.0 - 14.5 percent(in active) INTERFACE SYSTEM PLATELETS 264 140 - 440 K/ul INTERFACE SYSTEM MPV 11.3 8.9 - 12.8 Fl INTERFACE SYSTEM NEUTROPHILS 53.5 42.2 - 75.2 percent(in active) INTERFACE SYSTEM LYMPHOCYTES 35.3 24.0 - 44.0 percent(in active) INTERFACE SYSTEM MONOCYTES 8.3 2.0 - 10.0 percent(in active) INTERFACE SYSTEM EOSINOPHILS 2.5 0.0 - 7.0 % INTERFACE SYSTEM BASOPHILS 0.4 0.0 - 1.0 percent(in active) INTERFACE SYSTEM NEUTROPHIL ABSOLUTE 4.5 2.0 - 8.0 K/uL INTERFACE SYSTEM LYMPHOCYTE ABSOLUTE 3.0 1.2 - 4.0 K/ul INTERFACE SYSTEM MONOCYTE ABSOLUTE 0.7(H) 0.1 - 0.6 K/ul INTERFACE SYSTEM EOSINOPHIL ABSOLUTE 0.2 0.0 - 0.7 K/ul INTERFACE SYSTEM BASOPHILS ABSOLUTE 0.0 0.0 - 0.2 K/ul INTERFACE SYSTEM 10/13/2004 6:02 AM CUPBOARD BUILDER Aly Chu MD HEMATOLOGY ORDERABLES Final Re sult Performing Organization Address [facility] de Phone Number INTERFACE SYSTEM Refer to clinic/hospital department * (ABNORMAL) BASIC METABOLIC PANEL (10/13/2004 6:02 AM CUPBOARD BUILDER) GLUCOSE 96 70 - 110 mg/dL INTERFACE SYSTEM BUN 23(H) 7 - 17 mg/dL INTERFACE SYSTEM CREATININE 1.2 0.7 - 1.2 mg/dL (inactive) INTERFACE SYSTEM SODIUM 140 136 - 145 mEq/L INTERFACE SYSTEM POTASSIUM 4.3 3.5 - 5.0 mEq/L INTERFACE SYSTEM CHLORIDE 103 95 - 110 mEq/L INTERFACE SYSTEM CO2 30 22 - 32 mmol/l INTERFACE SYSTEM ANION GAP 11 9 - 20 mEq/L INTERFACE SYSTEM OSMOLALITY, CALCULATED 292 275 - 295 mOsm/Kg INTERFACE SYSTEM CALCIUM 9.4 8.4 - 10.5 mg/dL INTERFACE SYSTEM 10/13/2004 6:02 AM CUPBOARD BUILDER Aly Chu MD CHEMISTRY ORDERABLES Final Res ult Performing Organization Address [facility] de Phone Number INTERFACE SYSTEM Refer to clinic/hospital department documented in this encounter Visit Diagnoses Diagnosis Coronary atherosclerosis of [place] coronary artery- Primary documented in this encounter Care Teams Helicopter Technician Relationship Specialty Start Date End Date Gildardo Childers MD [address] [place] [phone] PCP - General Family Practice 02/05/16 documented as of this encounter
--- OUTSIDE RECORDS SUMMARY | 2024-12-09 14:41 | XMS_ITS | Clinical Summary ---
Author Organization [facility] [address] Address [address] [place] [address] Care Team Providers Care Nail Technician Name Role Phone Gildardo Childers MD Primary Care Provider [phone] Allergies No known active allergies Medications temazepam (RESTORIL) 15 mg Oral Cap 30 mg daily at bedtime. - 1 Active tizanidine (ZANAFLEX) 4 mg Oral Tab Q 12hours Active METOPROLOL TARTRATE 50 mg Oral Tab Take 50 mg by mouth daily. Active DILAUDID 2 mg Oral Tab Take 8 mg by mouth every 4 hours as needed. Active albuterol-ipra tropium (COMBIVENT) 103-18 mcg/Actuation Inhalation Aero Take 2 Puffs by inhalation see administration instructions. Pt uses as needed 0 Active SUMAtriptan (IMITREX) 50 mg Oral tablet Take 50 mg by mouth see administration instructions. Active prochlorperazi ne maleate (COMPAZINE) 10 mg tablet Take 10 mg by mouth every 8 hours as needed . 6 Active simvastatin (ZOCOR) 10 mg tablet Take 10 mg by mouth daily with supper . 6 Active fentaNYL (DURAGESIC) 50 mcg/hr patch Apply 1 Patch to skin as directed every other day. Active omeprazole (PriLOSEC) 20 mg Capsule, Delayed Release(E.C.) Take 1 Capsule (20 mg) by mouth daily. 30 Capsule 8 Active oxygen home delivery Administer in each nostril Home Oxygen Concentrator {yes no:145621} at L/M Rest, L/M Activity, L/M Sleep, Delivery Device: {GINO RX DME O2 DELIVERY DEVICE:22935932} Portability: {yes no:147443}, L/M Rest, L/M Activity, May evaluate for device best for patient needs(E system,home fill, conserving device) Maintain Sats: {GINO RX DME SPO2 GOAL:86159077}, Length of Need: {LENGTH OF NEED:60942855} months . Active insulin detemir (LEVEMIR U-100 INSULIN SUBCUT) Inject 40 Units by subcutaneous injection. 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 Gender Identity Not on file Sexual Orientation Not on file Last Filed Vital Signs Vital Sign Reading Time Taken Comments Blood Pressure 140/68 09/04/2019 8:14 AM TIEING MACHINE OPERATOR Pulse 67 09/04/2019 8:14 AM TIEING MACHINE OPERATOR Temperature 37.4 C (99.4 F) 09/04/2019 7:11 AM TIEING MACHINE OPERATOR Respiratory Rate 18 09/04/2019 8:14 AM TIEING MACHINE OPERATOR Oxygen Saturation 96% 09/04/2019 8:14 AM TIEING MACHINE OPERATOR Inhaled Oxygen Concentration - - Weight 129.3 kg (285 lb) 07/14/2019 1:21 PM TIEING MACHINE OPERATOR Height 160 cm (5' 3 ) 07/14/2019 1:21 PM TIEING MACHINE OPERATOR Body Mass Index 50.49 07/14/2019 1:21 PM TIEING MACHINE OPERATOR Plan of Treatment Health Maintenance Due Date Last Done Comments DTAP/TDAP/TD VACCINES (1 - Tdap) 1970 BREAST CANCER SCREENING 1991 FIT-DNA Q 3 years 1996 FIT/FOBT Q 1 year 1996 Flex Sig/CT Colonography Q 5 years 1996 PNEUMOCOCCAL VACCINE 50+ YEA RS (1 of 1 - PCV) 2001 ZOSTER VACCINE (1 of 2) 2001 RSV VACCINE (60+ or ) (1 - Risk 60-74 years 1-dose series) 2011 OSTEOPOROSIS SCREENING 2016 COLORECTAL SCREENING 04/01/2020 04/01/2010, 04/01/20 10 Colorectal Cancer Screening 04/01/2020 UPPER GI ENDOSCOPY 09/04/2020 09/04/2019, 0 12/06/2018, 03/16/2017, Additional history exists INFLUENZA VACCINE (#1) 2024 Procedures Procedure Name Priority Date/Time Associated Diagnosis Comments ENDOSCOPY, COLON, DIAGNOSTIC Routine 04/01/2010 12:28 PM CDT Erosive Esophagitis Rectal Bleeding EGD Routine 07/30/2008 Dysphagia from Last 3 Months or Most Recently Relevant to Health Maintenance Results * EGD (07/30/2008) us Jaya Montana MD GI PROCEDURE ORDERABLES Final Re sult from Last 3 Months or Most Recently Relevant to Health Maintenance Insurance MEDICARE PART A AND B Advance Directives For more information, please contact: [phone] * Full Code (Latest Code Status on File) Date Activated Date Inactivated Comments 09/04/2019 6:56 AM 09/04/2019 10:20 AM * Full Code Date Activated Date Inactivated Comments 12/06/2018 6:53 AM 12/06/2018 11:08 AM * Full Code Date Activated Date Inactivated Comments 03/16/2017 2:43 PM 03/16/2017 5:35 PM * Full Code Date Activated Date Inactivated Comments 02/14/2016 1:04 PM 02/15/2016 2:05 AM * Full Code Date Activated Date Inactivated Comments 03/09/2013 1:24 PM 03/10/2013 2:01 AM Care Teams Nail Technician Relationship Specialty [place] [address] [place] [phone] PCP - General Family Practice 02/05/16
--- OUTSIDE RECORDS SUMMARY | 2024-12-09 14:41 | XMS_ITS | Encounter Summary ---
Author Organization [facility] Address [address] [place] [address] Care Team Providers Care Rotary Saw Operator Name Role Phone Gildardo Childers MD Primary Care Provider [phone] Encounter Details Date Type Department Care Team (Latest Contact Info) Description 05/11/2008 Outpatient Historical [facility] Endoscopy [place] [address] [place] [address] Jaya Montana MD NO ADDRESS ON FILE Unspecified Essential Hypertension Social History Tobacco Use Types Packs/Day Years Used Date Smoking Tobacco: Never Assessed Comments No Sex and Gender Information Value Date Recorded Sex Assigned at Not on file 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
--- OUTSIDE RECORDS SUMMARY | 2024-12-09 14:41 | XMS_ITS | Encounter Summary ---
Author Organization [facility] Address [address] [place] [address] Care Team Providers Care Final Finisher Name Role Phone Gildardo Childers MD Primary Care Provider [phone] Encounter Details Date Type Department Care Team (Late st Contact Info) Description 03/16/2008 Outpatient Historical [facility] Endoscopy [place] [address] [place] [phone] Jaya Montana MD NO ADDRESS ON FILE Social History Tobacco Use Types Packs/Day Years Used Date Smoking Tobacco: Never Assessed Comments No Sex and Gender Information Value Date Recorded Sex Assigned at Not on file 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
--- OUTSIDE RECORDS SUMMARY | 2024-12-09 14:41 | XMS_ITS | Encounter Summary ---
Author Organization [facility] Address [address] [place] [address] Care Team Providers Care French Professor Name Role Phone Gildardo Childers MD Primary Care Provider [phone] Encounter Details Date Type Department Care Team (Latest Contact Info) Description 01/23/2008 Outpatient Historical [facility] Endoscopy [place] [address] [place] [address] Jaya Montana MD NO ADDRESS ON FILE Other Esophagitis; Unspecified Essential Hypertension Social History Tobacco Use Types Packs/Day Years Used Date Smoking Tobacco: Never Assessed Comments No Sex and Gender Information Value Date Recorded Sex Assigned at Not on file Legal Sex Female 6:28 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
--- OUTSIDE RECORDS SUMMARY | 2024-12-09 14:42 | XMS_ITS | Encounter Summary ---
Author Organization [facility] Address [address] [place] [address] Care Team Providers Care Designer And Patternmaker Name Role Phone Gildardo Childers MD Primary Care Provider [phone] Encounter Details Date Type Department Care Team (Latest Contact Info) Description 07/16/2008 Outpatient Historical [facility] Endoscopy [place] [address] [place] [address] Jaya Montana MD NO ADDRESS ON FILE Unspecified Essential Hypertension; Unspecified Myalgia and Myositis Social History Tobacco Use Types Packs/Day Years Used Date Smoking Tobacco: Never Assessed Comments No Sex and Gender Information Value Date Recorded Sex Assigned at Not on file Legal Sex Female 6:28 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
--- OUTSIDE RECORDS SUMMARY | 2024-12-09 14:42 | XMS_ITS | Encounter Summary ---
Author Organization [facility] Address [address] [place] [address] Care Team Providers Care Utilization Coordinator Name Role Phone Gildardo Childers MD Primary Care Provider [phone] Encounter Details Date Type Department Care Team (Latest Contact Info) Description 06/07/2008 Outpatient Historical [facility] Endoscopy [place] [address] [place] [address] Jaya Montana MD NO ADDRESS ON FILE Unspecified Essential Hypertension Social History Tobacco Use Types Packs/Day Years Used Date Smoking Tobacco: Never Assessed Comments No Sex and Gender Information Value Date Recorded Sex Assigned at Not on file 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
--- OUTSIDE RECORDS SUMMARY | 2024-12-09 14:42 | XMS_ITS | Encounter Summary ---
Author Organization [facility] Address [address] [place] [address] Care Team Providers Care Title Inspector Name Role Phone Gildardo Childers MD Primary Care Provider [phone] Encounter Details Date Type Department Care Team (Late st Contact Info) Description 07/05/2008 Outpatient Historical [facility] [place] [address] [place] [phone] Jaya Montana MD NO ADDRESS ON FILE Social History Tobacco Use Types Packs/Day Years Used Date Smoking Tobacco: Never Assessed Comments No Sex and Gender Information Value Date Recorded Sex Assigned at Not on file Legal Sex Female 6:28 AM VP REVENUE CYCLE Gender Identity Not on file Sexual Orientation Not on file documented as of this encounter Plan of Treatment Not on file documented as of this encounter Visit Diagnoses Not on filedocumented in this encounter Care Teams Title Inspector Relationship Specialty Start Date End Date Gildardo Childers MD [address] [place] [address] PCP - General Family Practice 02/05/16 documented as of this encounter
--- OUTSIDE RECORDS SUMMARY | 2024-12-09 14:42 | XMS_ITS | Encounter Summary ---
Author Organization [facility] Address [address] [place] [address] Care Team Providers Care Studio Grip Name Role Phone Gildardo Childers MD Primary Care Provider [phone] Encounter Details Date Type Department Care Team (Latest Contact Info) Description 05/18/2008 Outpatient Historical [facility] Endoscopy [place] [address] [place] [address] Jaya Montana MD NO ADDRESS ON FILE Unspecified Essential Hypertension; Unspecified Myalgia and Myositis Social History Tobacco Use Types Packs/Day Years Used Date Smoking Tobacco: Never Assessed Comments No Sex and Gender Information Value Date Recorded Sex Assigned at Not on file Legal Sex Female 6:28 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
[2024-12-09 14:52] VITALS: BMI 49.6
[2024-12-09 15:32] VITALS: BP 112/56; PULSE 64; RESP 16; TEMP 36.5; O2SAT 100
--- NOTE | 2024-12-09 16:11 | XRR_ITS ---
PROCEDURE INFORMATION: Exam: XR Chest Exam date and time: 12/09/2024 8:01 PM Age: 74 years old Clinical indication: Cough; Prior surgery; Surgery date: 6+ months; Surgery type: Bilat mastectomy/implant TECHNIQUE: Imaging protocol: Radiologic exam of the chest. Views: 1 view. COMPARISON: CT abdomen pelvis wo con [id number] 06/01/2023 11:17 AM FINDINGS: Lungs: See Heart/Mediastinum finding. Pleural spaces: Trace bilateral pleural effusions. Heart/Mediastinum: Cardiomegaly and mild pulmonary vascular congestion. Bones/joints: Unremarkable. XR/XR chest 1V portable [id number] IMPRESSION: 1. Cardiomegaly and mild pulmonary vascular congestion. 2. Trace bilateral pleural effusions.
[2024-12-09 16:40] LABS: Glucose Point of Care 106 mg/dL (70-110)
--- NOTE | 2024-12-09 17:03 | PM.HP ---
Providers/Chief Complaint Admitting Physician: Gloria Ortiz MD Primary Care Provider: Gildardo Childers MD Chief Complaint: right lower extremity cellulitius History of Present Illness Jaylin Resendez is a 74 year old female who is referred as a transfer from [facility]. Reportedly patient has lower extremity lymphedema, she follows chronically with wound care. She has recently received 2 courses of antibiotics with Bactrim and then levofloxacin. However then she developed fever up to 101.9 Fahrenheit and went to [facility]. Where she was diagnosed with a cellulitis. She started treatment with cefepime and vancomycin and then requested a transfer to [facility] as her usual wound care physician and PCP are here. Patient states since starting antibiotics the swelling and erythema have become much better. He has a chronic wound over the heel which currently does not appear to be draining any pus or malodorous discharge. Fever documented at [facility] upon arrival was 101.9 Fahrenheit. Blood cultures were taken and are currently pending. White blood cell count was at 6.8. Typically patient has lymphedema wraps on but these were removed for assessment yesterday. Review of Systems General: Reports: 10 or more systems reviewed and unremarkable except in HPI and below Const: Denies: fever(s), chills or body aches Eyes: Denies: change in vision, blurry vision or photophobia ENMT: Reports: hoarseness; Denies: throat pain, enlarged tonsils, odynophagia or nasal congestion Card: Denies: chest pain, palpitations, irregular heart rhythm, edema, swelling of feet/ankles, lightheadedness, pre-syncope, dyspnea on exertion or orthopnea Resp: Denies: dyspnea, productive cough, non-productive cough, wheezing, stridor, pain on inspiration, change in phlegm color, hemoptysis or chest congestion GI: Denies: abdominal pain, nausea, vomiting, hematemesis, coffee ground emesis, dysphagia, heartburn, diarrhea, constipation, GI cramping, change in stool character, hematochezia or melena : Denies: flank pain, difficulty voiding, dysuria, urinary frequency, urinary urgency, urinary hesitancy or hematuria Musc: Denies: neck pain, back pain, extremity pain, joint swelling, joint warmth or deformity Neuro: Denies: headache(s), numbness in extremities, weakness in extremities, sensory changes, difficulty walking, frequent falls, dizziness, vertigo, behavioral changes, Slurred speech present or seizure-like activity Psych: Denies: anxiety, depression, suicidal ideation or homicidal ideation Endo: Denies: polyuria, polydipsia, tired all the time, cold intolerance or hot flashes Zack/Lymph: Denies: easy bruising or easy bleeding Medications/Allergies Home Medications ?Medication ?Instructions ?Recorded ?Confirmed ?Last Taken ?Type cholecalciferol (vitamin D3) 25 25 mcg PO DAILY #30 tabs 07/02/23 12/10/24 12/07/24 Rx mcg (1,000 unit) tablet pen needle, diabetic 30 gauge x #200 ea 07/02/23 12/10/24 Unknown Rx 5/16 (Easy Touch Pen Needle) Electric wheelchair #1 ea 03/23/24 12/10/24 Unknown Rx Heel protective boots #2 ea 03/31/24 12/10/24 Unknown Rx RSV vaccine #1 ea 05/19/24 12/10/24 Unknown Rx albuterol sulfate 90 mcg/actuation 2 inh inhalation QID PRN shortness 07/11/24 12/10/24 11/29/24 Rx aerosol inhaler of breath or wheezing #8.5 grams ipratropium 20 mcg-albuterol 100 1 puff inhalation Q6H #4 grams 07/11/24 12/10/24 Unknown Rx mcg/actuation mist for inhalation (Combivent Respimat) omeprazole 20 mg tablet,delayed 20 mg PO DAILY #30 tabs 07/11/24 12/10/24 Unknown Rx release spironolactone 25 mg tablet 25 mg PO DAILY 30 days #30 tabs 07/11/24 12/10/24 12/07/24 Rx insulin glargine 100 unit/mL (3 40 unit (0.4 mL) SUBCUT QAM #15 mL 09/25/24 12/10/24 Unknown Rx mL) subcutaneous pen (Lantus Solostar U-100 Insulin) oxycodone 15 mg tablet 15 mg PO Q6H PRN Pain 09/25/24 12/10/24 12/08/24 History buspirone 5 mg tablet 5 mg PO TID PRN anxiety #60 tabs 05/08/1912/10/24 12/07/24 Rx cyclobenzaprine 10 mg tablet 10 mg PO TID PRN muscle spasm #30 11/27/24 12/10/24 12/07/24 Rx tabs gabapentin 400 mg capsule 400 mg PO QID #120 caps 11/27/24 12/10/24 12/07/24 Rx Allergies Allergy/AdvReac Type Severity Reaction Status Date / Time No Known Allergies Allergy Unverified 02/24/22 15:30 PFSH Acute PFSH: Medical History History of myocardial infarction Cirrhosis Diabetes mellitus type 2, controlled Surgical History Hx of cataract surgery History of breast implant History of bilateral mastectomy Bilateral mastectomy due to gangrenous complications of breast implant fracture after mammogram in 1985 Family History Mother CAD (coronary artery disease) NC Father CAD (coronary artery disease) Diabetes Brother Hypertension Diabetes Sister Diabetes Hypertension Social History Smoking and tobacco/nicotine status: never used tobacco/nicotine Second hand smoke exposure: Yes ( smokes in home) Vitals/I&O/Wt Last Vital Signs Temp 97.7 F 12/09/24 15:32 Pulse 64 12/09/24 15:32 Resp 16 12/09/24 15:32 BP 112/56 12/09/24 15:32 Pulse Ox 100 12/09/24 15:32 O2 Del Method Nasal Cannula 12/09/24 15:32 Weight last 48 hrs Weight 127.119 kg Physical Exam Narrative: General: No acute distress, AO x3 HEENT: PERRLA, pupils bilaterally equal and reactive, pallors not present Chest: Normal vesicular breath sounds, no added sounds, equal good air entry bilaterally CVS: S1-S2 regular, no murmurs, no tachycardia, no gallops, no rubs Abdomen: Soft, nontender, no organomegaly, bowel sounds present Neuro: No focal deficits, no facial deformity, AO x3, power 5/5 in all limbs Extremities: Lower extremity bilateral lymphedema. Patient did not permit examination of the heel wound, instead she is showing me pictures on her phone. Per limited assessment based on the picture, there does not appear to be any obvious discharge or overlying slough grossly noticeable. Data 12/10/24 03:31 12/10/24 03:31 A&P Assessment and plan (1) Cellulitis: (2) Lower extremity ulceration: (3) Lymphedema: Plan 74-year-old lady with chronic bilateral lymphedema with a known ulcer currently transferred from [facility] in view of cellulitis. Patient's right lower extremity appears to be more erythematous compared to the left side. Patient states that this is improved since starting antibiotics yesterday. Patient received cefepime and vancomycin at the outside hospital which we will continue here. Per reviewing notes from [facility] there was noted to be 101.9 Fahrenheit. Blood cultures were taken but are currently pending. Will repeat labs here today including CBC CMP to assess for serial change. Continue cefepime and vancomycin for now with target trough of 15-20 on the latter. Wound care consult on Wednesday once the services are available. Additionally OT consult on Wednesday to restart lymphedema care in the hospital. Closely monitor for improvement, monitor fever curve. PDMP PDMP Reviewed: Not Reviewed Attestations Medical Necessity Statement*: Greater than 2 midnight stay is anticipated Coding Level of Care Code Acute Code for [facility] Diagnoses Cellulitis L03.90 Lower extremity ulceration L97.909 Lymphedema I89.0
[2024-12-09] MEDS: vancomycin 2,000 MG/400 ML PIGGYBACK 200 MG IV (17:15)
[2024-12-09] MEDS: cefepime 2,000 mg SDV 2000 MG IVP (17:16)
[2024-12-09] MEDS: enoxaparin 40 mg/0.4 mL Syringe SUBCUT (17:16)
[2024-12-09] MEDS: pantoprazole DR 40 mg Tablet PO (17:16)
[2024-12-09 17:23] VITALS: RESP 16
[2024-12-09] MEDS: cyclobenzaprine 10 mg Tablet PO (17:23)
[2024-12-09] MEDS: oxyCODONE 5 mg IR Tab/Cap 15 MG PO ×2 (17:23→23:03)
[2024-12-09 17:51] LABS: Basophils % 0.5 %; Eosinophils # 0.1 10^3/uL (0.0-0.8); Eosinophils % 3.1 %; Hematocrit 41.5 % (36-47); Lymphocytes # 0.7 10^3/uL (0.8-4.8); Lymphocytes % 18.4 %; Mean Corpuscular HGB Conc 30.8 g/dL (30-55); Mean Corpuscular Hemoglobin 31.2 pg (27-33); Mean Corpuscular Volume 101.2 fl (85-98); Mean Platelet Volume 11.9 fL (7.4-10.4); Monocytes # 0.5 10^3/uL (0.2-0.9); Monocytes % 13.5 %; Neutrophils # 2.47 10^3/uL (1.8-7.7); Neutrophils % 64.2 %; Nucleated Red Blood Cells % 0 %; Platelet Count 36 10^3/cmm (157-399); Red Cell Distribution Width 14.2 % (12.1-15.1); White Blood Count 3.85 10^3/uL (3.29-11.43)
[2024-12-09 18:07] LABS: Alanine Aminotransferase 11 U/L (0-33); Alkaline Phosphatase 84 U/L (35-105); Anion Gap 13.7 (5-19); Aspartate Amino Transferase 25 U/L (0-32); Blood Urea Nitrogen 17 mg/dL (8-23); Calcium 8.2 mg/dL (8.5-10.5); Carbon Dioxide 23 mmol/L (22-29); Chloride 107 mmol/L (98-107); Globulin 3.5 g/dL (1.3-4.6); Glucose 95 mg/dL (65-115); Magnesium 1.6 mg/dL (1.7-2.3); Osmolality Calculated 291 mOsm/kg (285-295); Potassium 3.7 mmol/L (3.5-5.1); Sodium 140 mmol/L (136-145); Total Bilirubin 1.5 mg/dL (0.15-1.2); Total Protein 6.5 g/dL (6.6-8.7)
[2024-12-09 20:00] VITALS: BP 105/50; PULSE 66; RESP 18; TEMP 36.6; O2SAT 100
[2024-12-09 20:20] VITALS: PULSE 63; RESP 18; O2SAT 98
[2024-12-09] MEDS: ipratropium-albuterol 3 mL Neb INHALATION (20:20)
[2024-12-09 20:57] LABS: Glucose Point of Care 128 mg/dL (70-110)
[2024-12-09] MEDS: sodium hypochlorite 0.125% Btl 473 mL 1 APPLIC TOPICAL (22:59)
[2024-12-09] MEDS: BuSPIRONE 10 mg Tablet 5 MG PO (22:59)
[2024-12-09] MEDS: gabapentin 400 mg Capsule PO (22:59)
[2024-12-09 23:03] VITALS: RESP 18; O2SAT 98
[2024-12-09] MEDS: acetaminophen 325 mg Tablet 650 MG PO (23:03)
[2024-12-10] VITALS (10 sets, daily range): BP systolic 104–108; BP diastolic 53–62; PULSE 63–69; RESP 16–19; TEMP 36.5–36.7; O2SAT 92–99
[2024-12-10] MEDS: ipratropium-albuterol 3 mL Neb INHALATION ×3 (01:52→13:37)
[2024-12-10 04:20] LABS: Basophils % 0.3 %; Eosinophils # 0.2 10^3/uL (0.0-0.8); Eosinophils % 4.7 %; Hematocrit 37.6 % (36-47); Lymphocytes # 0.9 10^3/uL (0.8-4.8); Lymphocytes % 27.6 %; Mean Corpuscular HGB Conc 30.9 g/dL (30-55); Mean Corpuscular Hemoglobin 31.1 pg (27-33); Mean Corpuscular Volume 100.8 fl (85-98); Mean Platelet Volume 11.8 fL (7.4-10.4); Monocytes # 0.4 10^3/uL (0.2-0.9); Monocytes % 12.2 %; Neutrophils # 1.75 10^3/uL (1.8-7.7); Neutrophils % 54.9 %; Nucleated Red Blood Cells % 0 %; Platelet Count 38 10^3/cmm (157-399); Red Blood Count 3.73 10^6/uL (3.85-5.65); Red Cell Distribution Width 14.1 % (12.1-15.1); White Blood Count 3.19 10^3/uL (3.29-11.43)
[2024-12-10] MEDS: cefepime 2,000 mg SDV 2000 MG IVP (04:21)
[2024-12-10 04:41] LABS: Alanine Aminotransferase 9 U/L (0-33); Albumin Level 2.6 g/dL (3.5-5.2); Alkaline Phosphatase 80 U/L (35-105); Anion Gap 11.8 (5-19); Aspartate Amino Transferase 25 U/L (0-32); Blood Urea Nitrogen 17 mg/dL (8-23); Carbon Dioxide 24 mmol/L (22-29); Chloride 109 mmol/L (98-107); Globulin 3.3 g/dL (1.3-4.6); Glucose 81 mg/dL (65-115); Osmolality Calculated 293 mOsm/kg (285-295); Potassium 3.8 mmol/L (3.5-5.1); Sodium 141 mmol/L (136-145); Total Bilirubin 1.1 mg/dL (0.15-1.2); Total Protein 5.9 g/dL (6.6-8.7)
[2024-12-10] MEDS: oxyCODONE 5 mg IR Tab/Cap 15 MG PO ×2 (06:31→12:59)
[2024-12-10] MEDS: cyclobenzaprine 10 mg Tablet PO (06:32)
[2024-12-10] MEDS: BuSPIRONE 10 mg Tablet 5 MG PO (06:32)
[2024-12-10] MEDS: vancomycin 1,500 MG/300 ML PIGGYBACK 200 MG IV (06:32)
--- NOTE | 2024-12-10 06:53 | PHA.VACGOAL ---
Vancomycin Goal - Goal Vancomycin Goal:: 10-15 mg/L Vancomycin Indication:: SSTI - Therapy Current therapy:: Cefepime Day of therpy:: Day [1]of [] . Actual body weight (kg): 126.961 kg - Data Labs: WBC 3.19 10^3/uL (3.29-11.43) L 12/10/24 03:31 RBC 3.73 10^6/uL (3.85-5.65) L 12/10/24 03:31 Hgb 11.60 g/dL (11.27-16.99) 12/10/24 03:31 Hct 37.6 % (36-47) 12/10/24 03:31 MCV 100.8 fl (85-98) H 12/10/24 03:31 MCH 31.1 pg (27-33) 12/10/24 03:31 MCHC 30.9 g/dL (30-55) 12/10/24 03:31 RDW 14.1 % (12.1-15.1) 12/10/24 03:31 Sodium 141 mmol/L (136-145) 12/10/24 03:31 Potassium 3.8 mmol/L (3.5-5.1) 12/10/24 03:31 Chloride 109 mmol/L (98-107) H 12/10/24 03:31 Carbon Dioxide 24 mmol/L (22-29) 12/10/24 03:31 Anion Gap 11.8 (5-19) 12/10/24 03:31 BUN 17 mg/dL (8-23) 12/10/24 03:31 Creatinine 0.5 mg/dL (0.5-0.9) 12/10/24 03:31 GFR Calculation Not Reportable 12/10/24 03:31 Treatment plan:: new consult Regimen:: New start vancomycin for right lower extremity cellulitius. Received load dose of 2000 mg. Started on maintenance dose of 1500 mg q12h.
[2024-12-10 06:54] LABS: Glucose Point of Care 85 mg/dL (70-110)
[2024-12-10] MEDS: spironolactone 25 mg Tablet PO (09:04)
[2024-12-10] MEDS: pantoprazole DR 40 mg Tablet PO (09:04)
[2024-12-10] MEDS: gabapentin 400 mg Capsule PO ×2 (09:04→13:00)
[2024-12-10 11:11] LABS: Glucose Point of Care 104 mg/dL (70-110)
--- NOTE | 2024-12-10 16:01 | P.DS_ITS ---
Discharge Providers Date of Admission: 12/09/24 14:36 Date of Discharge: December 10, 2024 Attending Provider at Admission: Gloria Ortiz MD Attending Provider at Discharge: Gloria Ortiz MD Primary Care Provider: Gildardo Childers MD Diagnoses at Discharge Discharge Diagnosis (1) Cellulitis: Status: Acute (2) Lower extremity ulceration: Status: Acute (3) Lymphedema: Status: Acute Reason for Visit Reason for Visit: right lower extremity cellulitius Hospital Course Hospital Course Patient is a 74-year-old lady who was transferred here from [facility] for lower extremity cellulitis in the setting of having had chronic lymphedema, chronically draining ulcer and recently developing fever at home. She received treatment with cefepime and vancomycin at [facility] and then also here at our hospital. Blood cultures are awaited, not available at the time of discharge. Patient was planned to continue IV antibiotics, then undergo evaluation by wound care services and lymphedema therapy with occupational therapy tomorrow, however today she has elected to leave AMA stating that she would like to go home to her terminally ill . Prescriptions were provided for empiric ciprofloxacin and linezolid. Patient states that her wound care nurse will be coming to her house tomorrow to rewrap her legs and provide wound care. She has a follow-up appointment at the wound care clinic this upcoming Wednesday and states she will follow-up with Dr. Lopez for further care. Physical Exam Narrative: General: No acute distress, AO x3 HEENT: PERRLA, pupils bilaterally equal and reactive, pallors not present Chest: Normal vesicular breath sounds, no added sounds, equal good air entry bilaterally CVS: S1-S2 regular, no murmurs, no tachycardia, no gallops, no rubs Abdomen: Soft, nontender, no organomegaly, bowel sounds present Neuro: No focal deficits, no facial deformity, AO x3, power 5/5 in all limbs Discharge Data Studies Completed and Pending Completed Studies During Hospitalization Category Date Time Status CXRP [XR chest 1V portable [id number]] Routine Exams 12/09/24 16:11 Completed Radiology Impressions Chest X-Ray 12/09/24 16:11 IMPRESSION: 1. Cardiomegaly and mild pulmonary vascular congestion. 2. Trace bilateral pleural effusions. Laboratory Results WBC 3.19 10^3/uL (3.29-11.43) L 12/10/24 03:31 RBC 3.73 10^6/uL (3.85-5.65) L 12/10/24 03:31 Hgb 11.60 g/dL (11.27-16.99) 12/10/24 03:31 Hct 37.6 % (36-47) 12/10/24 03:31 MCV 100.8 fl (85-98) H 12/10/24 03:31 MCH 31.1 pg (27-33) 12/10/24 03:31 MCHC 30.9 g/dL (30-55) 12/10/24 03:31 RDW 14.1 % (12.1-15.1) 12/10/24 03:31 Plt Count 38 10^3/cmm (157-399) L 12/10/24 03:31 MPV 11.8 fL (7.4-10.4) H 12/10/24 03:31 Neut % (Auto) 54.9 % 12/10/24 03:31 Lymph % (Auto) 27.6 % 12/10/24 03:31 [place] % (Auto) 12.2 % 12/10/24 03:31 Eos % (Auto) 4.7 % 12/10/24 03:31 Baso % (Auto) 0.3 % 12/10/24 03:31 Neut # (Auto) 1.75 10^3/uL (1.8-7.7) L 12/10/24 03:31 Lymph # (Auto) 0.9 10^3/uL (0.8-4.8) 12/10/24 03:31 [place] # (Auto) 0.4 10^3/uL (0.2-0.9) 12/10/24 03:31 Eos # (Auto) 0.2 10^3/uL (0.0-0.8) 12/10/24 03:31 Baso # (Auto) 0.0 10^3/uL (0.0-0.1) 12/10/24 03:31 Nucleated RBC % (auto) 0 % 12/10/24 03:31 Nucleated RBCs # 0.0 /100WBC 12/10/24 03:31 Sodium 141 mmol/L (136-145) 12/10/24 03:31 Potassium 3.8 mmol/L (3.5-5.1) 12/10/24 03:31 Chloride 109 mmol/L (98-107) H 12/10/24 03:31 Carbon Dioxide 24 mmol/L (22-29) 12/10/24 03:31 Anion Gap 11.8 (5-19) 12/10/24 03:31 BUN 17 mg/dL (8-23) 12/10/24 03:31 Creatinine 0.5 mg/dL (0.5-0.9) 12/10/24 03:31 GFR Calculation Not Reportable 12/10/24 03:31 Glucose 81 mg/dL (65-115) 12/10/24 03:31 POC Glucose 104 mg/dL (70-110) 12/10/24 11:05 Calculated Osmolality 293 mOsm/kg (285-295) 12/10/24 03:31 Calcium 8.0 mg/dL (8.5-10.5) L 12/10/24 03:31 Magnesium 1.6 mg/dL (1.7-2.3) L 12/09/24 17:41 Total Bilirubin 1.1 mg/dL (0.15-1.2) 12/10/24 03:31 AST 25 U/L (0-32) 12/10/24 03:31 ALT 9 U/L (0-33) 12/10/24 03:31 Alkaline Phosphatase 80 U/L (35-105) 12/10/24 03:31 Total Protein 5.9 g/dL (6.6-8.7) L 12/10/24 03:31 Albumin 2.6 g/dL (3.5-5.2) L 12/10/24 03:31 Globulin 3.3 g/dL (1.3-4.6) 12/10/24 03:31 Vitals Last Vital Signs Temp 97.7 F 12/10/24 11:39 Pulse 69 12/10/24 13:37 Resp 16 12/10/24 13:37 BP 107/55 12/10/24 11:39 Pulse Ox 99 12/10/24 13:37 O2 Del Method Nasal Cannula 12/10/24 13:37 O2 Flow Rate 3 12/10/24 13:37 Discharge Plan Discharge Patient Disposition: Left Against Medical Advice Condition: Stable Prescriptions: New linezolid 600 mg tablet 600 mg PO BID 5 Days Qty: 10 0RF ciprofloxacin HCl [Cipro] 500 mg tablet 500 mg PO BID 5 Days Qty: 10 0RF Continued insulin glargine [Lantus Solostar U-100 Insulin] 100 unit/mL (3 mL) insulin pen 40 unit SUBCUT QAM Qty: 15 3RF oxycodone 15 mg tablet 15 mg PO Q6H PRN (Reason: Pain) Rx Instructions: Per Dr Conway ([facility]) pen needle, diabetic [Easy Touch Pen Needle] 30 gauge x 5/16 needle See Rx Instructions .ROUTE .COMPLEX Qty: 200 2RF Dose Instruction: USE ONE NEEDLE SUBCUTANEOUSLY TWO TIMES A DAY Rx Instructions: USE ONE NEEDLE SUBCUTANEOUSLY TWO TIMES A DAY cholecalciferol (vitamin D3) 25 mcg (1,000 unit) tablet 25 mcg PO DAILY Qty: 30 6RF (DME) Electric wheelchair See Rx Instructions .Route .MEDSUPPLY Qty: 1 0RF Rx Instructions: Bariatric electric wheelchair with reclining capabilities to allow for elevation of feet. (DME) Heel protective boots See Rx Instructions .Route .MEDSUPPLY Qty: 2 0RF Rx Instructions: As directed (DME) RSV vaccine See Rx Instructions .ROUTE .MEDSUPPLY Qty: 1 0RF Rx Instructions: Give one dose IM per guidelines. spironolactone 25 mg tablet 25 mg PO DAILY 30 Days Qty: 30 11RF omeprazole 20 mg tablet,delayed release (DR/EC) 20 mg PO DAILY Qty: 30 12RF Combivent Respimat 20-100 mcg/actuation mist 1 puff inhalation Q6H Qty: 4 6RF albuterol sulfate 90 mcg/actuation HFA aerosol inhaler 2 inh inhalation QID PRN (Reason: shortness of breath or wheezing) Qty: 8.5 12RF buspirone 5 mg tablet 5 mg PO TID PRN (Reason: anxiety) Qty: 60 6RF cyclobenzaprine 10 mg tablet 10 mg PO TID PRN (Reason: muscle spasm) Qty: 30 2RF gabapentin 400 mg capsule 400 mg PO QID Qty: 120 6RF Discharge Attestations Time Spent in Discharge Care*: greater than 30 min Quality Metrics Clinical Quality Measures [ No reported AMI, CVA or VTE this stay] Coding Level of Care Code Acute Code for [facility] Diagnoses Cellulitis L03.90 Lower extremity ulceration L97.909 Lymphedema I89.0
--- NOTE | 2024-12-10 16:22 | PC.NURSE ---
pt leaving [facility], pt aaox4, educ pt on all benefits of staying and continuing tx. pt also educ on all risks up to and including r/t infection from wounds if left untreated. pt still wishes to leave [facility]. dr. lua notified.
== END 2024-12-10 16:25 | disposition left against medical advice (07) | DRG 603 ==
PROVIDERS: Admitting Provider Student in an Organized Health Care Education/Training Program; PCP Family Medicine; Visit Provider Student in an Organized Health Care Education/Training Program
DX: L03.115 Cellulitis of right lower limb (principal); Z53.29 Procedure and treatment not carried out because of patient's decision for other reasons; Z79.4 Long term (current) use of insulin; I25.2 Old myocardial infarction; E11.9 Type 2 diabetes mellitus without complications; K74.60 Unspecified cirrhosis of liver; Z90.13 Acquired absence of bilateral breasts and nipples
CPT/HCPCS: 36415; 36416; 71045; 80053; 82962; 83735; 85025; 94640; 94760; 96372; J0692; J1650; J3370; J3372; J9999

== ENCOUNTER → 2024-12-13 15:02 | Outpatient (BNVA) | payer MEDICARE, SELFPAY | PROVIDERS: PCP Family Medicine; Visit Provider Thoracic Surgery (Cardiothoracic Vascular Surgery) | DX: E11.52 Type 2 diabetes mellitus with diabetic peripheral angiopathy with gangrene (principal); E11.622 Type 2 diabetes mellitus with other skin ulcer; L97.812 Non-pressure chronic ulcer of other part of right lower leg with fat layer exposed; E11.621 Type 2 diabetes mellitus with foot ulcer; L89.611 Pressure ulcer of right heel, stage 1 | CPT/HCPCS: 11042; 97597; A6197; A6251; A6253 ==

== ENCOUNTER → 2024-12-19 14:36 | Outpatient (BNVA) | payer MEDICARE, SELFPAY | PROVIDERS: PCP Family Medicine; Visit Provider Thoracic Surgery (Cardiothoracic Vascular Surgery) | DX: E11.52 Type 2 diabetes mellitus with diabetic peripheral angiopathy with gangrene (principal); E11.622 Type 2 diabetes mellitus with other skin ulcer; L97.812 Non-pressure chronic ulcer of other part of right lower leg with fat layer exposed; E11.621 Type 2 diabetes mellitus with foot ulcer; L89.611 Pressure ulcer of right heel, stage 1 | CPT/HCPCS: 11042; 97597; A6197; A6253; J9999 ==

== ENCOUNTER → 2024-12-25 14:05 | Outpatient (BNVA) | payer MEDICARE, SELFPAY | PROVIDERS: PCP Family Medicine; Visit Provider Thoracic Surgery (Cardiothoracic Vascular Surgery) | DX: E11.52 Type 2 diabetes mellitus with diabetic peripheral angiopathy with gangrene (principal); E11.622 Type 2 diabetes mellitus with other skin ulcer; L97.812 Non-pressure chronic ulcer of other part of right lower leg with fat layer exposed; E11.621 Type 2 diabetes mellitus with foot ulcer; L89.611 Pressure ulcer of right heel, stage 1 | CPT/HCPCS: 11042; 97597 ==

== ENCOUNTER → 2025-01-01 14:16 | Outpatient (BNVA) | payer MEDICARE, SELFPAY | PROVIDERS: PCP Family Medicine; Visit Provider Thoracic Surgery (Cardiothoracic Vascular Surgery) | DX: E11.52 Type 2 diabetes mellitus with diabetic peripheral angiopathy with gangrene (principal); E11.622 Type 2 diabetes mellitus with other skin ulcer; L97.811 Non-pressure chronic ulcer of other part of right lower leg limited to breakdown of skin; E11.621 Type 2 diabetes mellitus with foot ulcer; L97.412 Non-pressure chronic ulcer of right heel and midfoot with fat layer exposed | CPT/HCPCS: 11042; 97597 ==

== ENCOUNTER → 2025-01-08 13:40 | Outpatient (BNVA) | payer MEDICARE, SELFPAY | PROVIDERS: PCP Family Medicine; Visit Provider Thoracic Surgery (Cardiothoracic Vascular Surgery) | DX: E11.52 Type 2 diabetes mellitus with diabetic peripheral angiopathy with gangrene (principal); E11.622 Type 2 diabetes mellitus with other skin ulcer; L97.812 Non-pressure chronic ulcer of other part of right lower leg with fat layer exposed; E11.621 Type 2 diabetes mellitus with foot ulcer; L89.611 Pressure ulcer of right heel, stage 1 | CPT/HCPCS: 11042; 97597; A6252 ==

== ENCOUNTER → 2025-01-09 16:19 | Outpatient (BNVA) | payer MEDICARE, SELFPAY | PROVIDERS: PCP Family Medicine; Visit Provider Family Medicine | DX: K74.60 Unspecified cirrhosis of liver (principal); R41.0 Disorientation, unspecified; Z51.81 Encounter for therapeutic drug level monitoring | CPT/HCPCS: 82140; 85025 ==

== ENCOUNTER → 2025-01-15 13:51 | Outpatient (BNVA) | payer MEDICARE, SELFPAY | PROVIDERS: PCP Family Medicine; Visit Provider Thoracic Surgery (Cardiothoracic Vascular Surgery) | DX: E11.52 Type 2 diabetes mellitus with diabetic peripheral angiopathy with gangrene (principal); E11.622 Type 2 diabetes mellitus with other skin ulcer; L97.812 Non-pressure chronic ulcer of other part of right lower leg with fat layer exposed; E11.621 Type 2 diabetes mellitus with foot ulcer; L89.611 Pressure ulcer of right heel, stage 1 | CPT/HCPCS: 11042; 97597; A6248 ==

== ENCOUNTER → 2025-01-31 11:06 | Outpatient (BNVA) | payer MEDICARE, SELFPAY | PROVIDERS: PCP Family Medicine; Visit Provider Thoracic Surgery (Cardiothoracic Vascular Surgery) | DX: E11.52 Type 2 diabetes mellitus with diabetic peripheral angiopathy with gangrene (principal); E11.622 Type 2 diabetes mellitus with other skin ulcer; L97.812 Non-pressure chronic ulcer of other part of right lower leg with fat layer exposed; E11.621 Type 2 diabetes mellitus with foot ulcer; L89.611 Pressure ulcer of right heel, stage 1 | CPT/HCPCS: 11042; 97597 ==

== ENCOUNTER → 2025-02-05 13:56 | Outpatient (BNVA) | payer MEDICARE, SELFPAY | PROVIDERS: PCP Family Medicine; Visit Provider Thoracic Surgery (Cardiothoracic Vascular Surgery) | DX: E11.52 Type 2 diabetes mellitus with diabetic peripheral angiopathy with gangrene (principal); E11.622 Type 2 diabetes mellitus with other skin ulcer; L97.811 Non-pressure chronic ulcer of other part of right lower leg limited to breakdown of skin; E11.621 Type 2 diabetes mellitus with foot ulcer; L89.611 Pressure ulcer of right heel, stage 1 | CPT/HCPCS: 97597 ==

== ENCOUNTER → 2025-02-19 14:24 | Outpatient (BNVA) | payer MEDICARE, SELFPAY | PROVIDERS: PCP Family Medicine; Visit Provider Thoracic Surgery (Cardiothoracic Vascular Surgery) | DX: E11.52 Type 2 diabetes mellitus with diabetic peripheral angiopathy with gangrene (principal); E11.622 Type 2 diabetes mellitus with other skin ulcer; L97.811 Non-pressure chronic ulcer of other part of right lower leg limited to breakdown of skin; E11.621 Type 2 diabetes mellitus with foot ulcer; L89.611 Pressure ulcer of right heel, stage 1 | CPT/HCPCS: 87086; 97597; A6197; A6252 ==

== ENCOUNTER → 2025-03-05 13:52 | Outpatient (BNVA) | payer MEDICARE, SELFPAY | PROVIDERS: PCP Family Medicine; Visit Provider Thoracic Surgery (Cardiothoracic Vascular Surgery) | DX: E11.52 Type 2 diabetes mellitus with diabetic peripheral angiopathy with gangrene (principal); E11.622 Type 2 diabetes mellitus with other skin ulcer; L97.811 Non-pressure chronic ulcer of other part of right lower leg limited to breakdown of skin; E11.621 Type 2 diabetes mellitus with foot ulcer; L97.411 Non-pressure chronic ulcer of right heel and midfoot limited to breakdown of skin | CPT/HCPCS: 97597; A6210; A6252 ==

== ENCOUNTER 2025-03-23 14:19 | Emergency (ER) | payer MEDICARE, SELFPAY ==
[2025-03-23] VITALS (13 sets, daily range): BP systolic 97–126; BP diastolic 66–84; PULSE 111–180; RESP 35–38; TEMP 37.5; O2SAT 95–100
--- OUTSIDE RECORDS SUMMARY | 2025-03-23 14:24 | XMS_ITS | Encounter Summary ---
Author Organization [facility] Address [address] [place] [address] Care Team Providers Care Steam Heating Installer Name Role Phone Gildardo Childers MD Primary Care Provider [phone] Encounter Details Date Type Department Care Team (Late st Contact Info) Description 03/04/2017 Ancillary Orders [facility] Pre-Registration [place] CALL TO MAKE APPOINTMENT ONLY [address] [place] [address] Gildardo Childers MD [address] [place] [address] Social History Tobacco Use Types Packs/Day Years Used Date Smoking Tobacco: Former Cigarettes Comments:quit 10 years Alcohol Use Standard Drinks/Week Comments No 0 (1 standard drink = 0.6 oz pur e alcohol) Comments No Sex and Gender Information Value Date Recorded Sex Assigned at Not on file 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
--- OUTSIDE RECORDS SUMMARY | 2025-03-23 14:24 | XMS_ITS | Patient Health Record ---
Author Organization [facility] Address [address] [place], [place] [address] Care Team Providers Care Medical Billing Specialist Name Role Phone Alvarado NAGEL, Gildardo Primary Care Provider Boris Conway MD, Dawson Unavailable [phone] Allergies No Known Allergies Results Component Value Reference Range Notes Embedded PDF Reviewed date:05/22/2024 07:44:11 AM Interpretation: Performing Lab: Notes/Report: [facility], [address], [place] [address], , L ab Director: Lidia Reynaga MD, CLIA ID# [id number] Thrinacia Results Reviewed date:05/22/2024 07:44:46 AM Interpretation:Consistent Performing Lab:[id number] [facility], [address] [place] [address] Lidia Ryenaga MD Notes/Report: [facility], [address] [address], , L ab Director: Lidia Reynaga MD, CLIA ID# [id number] OPIATES SCREEN negative 40 ng/mL OXYCODONE SCREEN negative 40 ng/mL Oxycodone positive-21.338 1 ng/mL Noroxycodone Quantification negative 2 ng/mL Oxymorphone negative 1 ng/mL Buprenorphine Quantification negative 1 ng/mL Norbuprenorphine Quantification negative 2 ng/mL Fentanyl Quantification negative 0.2 ng/mL Norfentanyl Quantification negative 1 ng/mL METHADONE SCREEN negative 50 ng/mL Tapentadol Quantification negative 5 ng/mL Tramadol Quantification negative 5 ng/mL C-Ndnwdenjj-Tmxdayin Quantification negative 5 ng/ mL BENZODIAZEPINES SCREEN [...] 1 ng/mL PHENCYCLIDINE SCREEN negative 10 ng/mL Saliva Swab Toxicology Bijal n Reviewed date:05/22/2024 07:44:36 AM Interpretation:Consistent Performing Lab: Notes/Report: Consistent Saliva Swab Toxicology Scree n Reviewed date:05/22/2024 07:44:36 AM Interpretation:Consistent Performing Lab: Notes/Report: Consistent Reason For Referral No Information Medications Medication SIG (Take, Route, Frequency, Duration) Notes Start Date End Date Status metoprolol 50 mg 1 tab orally BID; Duration: 30 day(s) Active BromSite 0.075% 1 gtt in each affected eye 2 times a day Active Nitroquick 0.4 mg 1 tab sublingually every 5 minutes; Duration: 3 dose(s) Active Lotemax 0.5% 2 gtt in each affected eye 4 times a day Active sulfamethoxazole-trimetho prim 800 mg-160 mg 1 tab(s) orally every 12 hours; Duration: 10 day(s) 03/09/2024 Active Lotrisone 0.05%-1% 1 paulino applied topically BID, PRN; Duration: 10 day(s) Active Vitamin D3 5000 intl units as directed orally once a day; Duration: 30 day(s) 02/18/2021 Active oxyCODONE 15 mg 1 tab orally Q4H prn pain (max 4/day; hold within 4H of planned sleep); Duration: 28 days ICD-10: G89.29 11/02/2024 Active hydrochlorothiazide-lisin opril 10 mg-12.5 mg 1 tab orally once a day; Duration: 7 day(s) Active simvastatin 5 mg 1 tab orally once a day (at bedtime) Active Imitrex 1 tab orally PRN onset of migraine; Duration: 1 dose(s) Active spironolactone 25 mg 1 tab orally once daily; Duration: 30 day(s) Active doxycycline hyclate 100 mg 1 cap(s) orally 2 times a day; Duration: 10 day(s) Active ProAir HFA 90 mcg/inh 2 puffs inhaled every 6 hours Active oxyCODONE 15 mg 1 tab orally Q4H prn pain (max 4/day; hold within 4H of planned sleep); Duration: 28 days Do not fill prior to 11/30/24. ICD-10: G89.29 11/02/2024 Active gabapentin 100 mg 1 cap(s) orally 3 times a day; Duration: 30 day(s) Active prochlorperazine 10 mg 1 tab po orally Q ID prn nausea Active Combivent 90 mcg-18 mcg/inh 1 puff inhaled Q4H, PRN; Duration: 30 day(s) Active omeprazole 20 mg 1 cap(s) orally once a day; Duration: 30 day(s) 03/09/2024 Active cyclobenzaprine 10 mg 1 tab(s) orally 3 times a day Active OxyCODONE Hydrochloride 15 mg 1 tab orally Q4H prn pain (max 4/day; hold within 4H of planned sleep); Duration: 28 days 09/07/2024 Active omeprazole 40 mg 1 cap orally once a day Active OxyCODONE Hydrochloride 15 mg 1 tab orally Q4H prn pain (max 4/day; hold within 4H of planned sleep); Duration: 28 days Do not fill prior to 12/28/24. ICD-10: G89.29 11/02/2024 Active cefdinir 300 mg 1 cap(s) orally every 12 hours; Duration: 10 day(s) Active Social History AUDIT-C (Standard) Question Answer Notes Did you have a drink containing alcohol in the p ast year? 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) Lumbar (w/out myelopathy) intervertebral disc disorder (722.10) Active confirmed Problem Sleep dysfunction with sleep stage disturbance (486957608) Dysfunctions associated with sleep stages or arousal from sleep (780.56) Active confirmed Problem Low back pain (940630217) Low back pain (724.2) Active confirmed Problem Neck pain (66261842) Neck pain (723.1) Active confirmed Problem Long-term drug therapy (107925164) LONG-TERM USE MEDS NEC (V58.69) Active confirmed R/O substance abuse Problem Anxiety state (892523442) Anxiety State, other, specified: procedure related (300.09) Active confirmed Problem Displacement of cervical intervertebral disc without myelopathy (64254053) Cervical (w/out myelopathy) intervertebral disc disorder (722.0) Active confirmed Problem Solitary sacroiliitis (349107704) Sacroiliitis, not elsewhere classified (M46.1) Active confirmed Problem Low back pain (140268526) Low back pain (M54.5) Active confirmed Problem Lumbosacral spondylosis without myelopathy (75496494) Spondylosis without myelopathy or radiculopathy, lumbar region (M47.816) Active confirmed Problem High risk drug monitoring status (424560719) senior living (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 of 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 (Z79.891) Active confirmed Problem Anxiety disorder (739119615) Other specified anxiety disorders (F41.8) Active confirmed Problem Sleep disorder (19215600) Other sleep disorders (G47.8) Active confirmed Problem Chronic pain (66379122) Other chronic pain (G89.29) Active confirmed Problem Cervical spondylosis without myelopathy (168401966) Spondylosis without myelopathy or radiculopathy, cervical region (M47.812) Active confirmed Problem Cervical radiculopathy (22498610) Cervical disc disorder with radiculopathy, unspecified cervical region (M50.10) Active confirmed Problem Cervical disc disorder with radiculopathy (809146281) Cervical disc disorder with radiculopathy, mid-cervical region (M50.12) Active confirmed Problem Radiculopathy due to lumbar intervertebral disc disorder (565510209073616 ) Intervertebral disc disorders with radiculopathy, lumbar region (M51.16) Active confirmed Problem Cervicalgia (39448863) Cervicalgia (M54.2) Active confirmed Problem Myalgia (64058447) Myalgia (M79.1) Active confirmed Problem Muscle pain (33964858) Myalgia, other site (M79.18) Active confirmed Problem Pain in lumbar spine (576652904) Vertebrogenic low back pain (M54.51) Active confirmed Vital Signs Temperature 97.2 degrees Fahrenheit 11/02/2024 Oximetry 93 % 11/02/2024 Height 63 in 11/02/2024 Encounters Encounter Location Date Provider Diagnosis [facility] [place] [address] [place], [place] [id number] 05/18/2024 Dawson Conway Vertebrogenic low ba ck pain M54.51 ; Other chronic pain G89.29 ; Other sleep disorders G47.8 and senior living (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 of 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 Z79.891 [facility] [address] [id number] 07/13/2024 Dawson Conway Vertebrogenic low ba ck pain M54.51 ; Other chronic pain G89.29 and Other sleep disorders G47.8 [facility] [id number] 09/07/2024 Dawson Conway Vertebrogenic low ba ck pain M54.51 ; Other chronic pain G89.29 and Other sleep disorders G47.8 [facility] [address] [id number] 11/02/2024 Dawson Conway Vertebrogenic low ba ck pain M54.51 ; Other chronic pain G89.29 and Other sleep disorders G47.8 [facility], [address] [id number] 04/06/2024 Dawson Conway Assessments Encounter Date Diagnosis (ICD Code) Assessment Notes Treatment Notes Treatment Clinical Notes Section Notes 05/18/2024 Other chronic pain (ICD-10 - G89.29) [...] in relation to sleep for safety concerns. 05/18/2024 senior living (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 of 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 (ICD-10 - [...] in relation to sleep for safety concerns. 05/18/2024 Other The service was provided by [...] clinic is closing due to Dr. Conway's usp; see scanned document. Terminal prescriptions were given to the patient along with tapering instructions. 07/13/2024 Other The service was provided by ANJANA Cheema, as part of the ongoing care plan established by Dawson Conway MD, who was present in the office for direct supervision during the encounter. Plan Of Treatment No Information Insurance Providers Payer Name Payer Address Payer Phone Subscriber Number Group Number Insured Name Patient Relationship to Insured Coverage Start Date Coverage End Date [employer] ADVANTAGE [address] [address] [place] [address] [id number] Jaylin Resendez Self - patient is the [...] Reason Date(Month/Year) UTI and dehydration, treated at [facility], Fall, bladder infection, treated at [facility] , 06/18/22-06/21/22 Colitis, 01/20/10-01/22/10
--- OUTSIDE RECORDS SUMMARY | 2025-03-23 14:25 | XMS_ITS | Encounter Summary ---
Author Organization [facility] Address [address] [place] [address] Care Team Providers Care Lead Electrical Engineer Name Role Phone Gildardo Childers MD Primary Care Provider [phone] Encounter Details Date Type Department Care Team (Latest Contact Info) Description 05/18/2008 Outpatient Historical [facility] [address] [place] [address] Jaya Montana MD NO ADDRESS ON FILE Unspecified Essential Hypertension; Unspecified Myalgia and Myositis Social History Tobacco Use Types Packs/Day Years Used Date Smoking Tobacco: Never Assessed Comments No Sex and Gender Information Value Date Recorded Sex Assigned at Not on file Legal Sex Female 6:28 AM TABLE RUNNER Gender Identity Not on file Sexual Orientation Not on file documented as of this encounter Plan of Treatment Not on file documented as of this encounter Visit Diagnoses Diagnosis Unspecified essential hypertension Myalgia and myositis, unspecified Mylagia and myositis, unspecified documented in this encounter Care Teams Lead Electrical Engineer Relationship Specialty Start Date End Date Gildardo Childers MD [address] [place] [phone] PCP - General Family Practice 02/05/16 documented as of this encounter
--- OUTSIDE RECORDS SUMMARY | 2025-03-23 14:25 | XMS_ITS | Encounter Summary ---
Author Organization [facility] Address [address] [place] [address] Care Team Providers Care Lacquer Coater Name Role Phone Gildardo Childers MD Primary Care Provider [phone] Encounter Details Date Type Department Care Team (Late st Contact Info) Description 03/01/2017 Ancillary Orders [facility] Pre-Registration [place] CALL TO MAKE APPOINTMENT ONLY [address] [place] [address] Gildardo Childers MD [address] [place] [address] Social History Tobacco Use Types Packs/Day Years Used Date Smoking Tobacco: Former Cigarettes Comments:quit 10 years Alcohol Use Standard Drinks/Week Comments No 0 (1 standard drink = 0.6 oz pur e alcohol) Comments No Sex and Gender Information Value Date Recorded Sex Assigned at Not on file Legal Sex Female 6:28 AM FRESCO ARTIST Gender Identity Not on file Sexual Orientation Not on file documented as of this encounter Plan of Treatment Not on file documented as of this encounter Visit Diagnoses Not on filedocumented in this encounter Care Teams Lacquer Coater Relationship Specialty Start Date End Date Gildardo Childers MD [address] [place] [address] PCP - General Family Practice 02/05/16 documented as of this encounter
--- OUTSIDE RECORDS SUMMARY | 2025-03-23 14:25 | XMS_ITS | Clinical Summary ---
Author Organization [facility] [address] [facility] Address [address] [facility] [place] [address] Care Team Providers Care Seo Coordinator Name Role Phone Gildardo Childers MD Primary Care Provider [phone] Allergies No known active allergies Medications temazepam [...] in each nostril Home Oxygen Concentrator {yes no:306150} at L/M Rest, L/M Activity, L/M Sleep, Delivery Device: {GINO RX DME O2 DELIVERY DEVICE:94862052} Portability: {yes no:221108}, L/M Rest, L/M Activity, May evaluate for device best for patient needs(E system,home fill, conserving device) Maintain Sats: {GINO RX DME SPO2 GOAL:53556201}, Length of Need: {LENGTH OF NEED:01492168} months . Active insulin detemir (LEVEMIR U-100 [...] on file Legal Sex Female 6:28 AM FUEL DOCK ATTENDANT Gender Identity Not on file Sexual Orientation Not on file Last Filed Vital Signs Vital Sign Reading Time Taken Comments Blood Pressure 140/68 09/04/2019 8:14 AM FUEL DOCK ATTENDANT Pulse 67 09/04/2019 8:14 AM FUEL DOCK ATTENDANT Temperature 37.4 C (99.4 F) 09/04/2019 7:11 AM FUEL DOCK ATTENDANT Respiratory Rate 18 09/04/2019 8:14 AM FUEL DOCK ATTENDANT Oxygen Saturation 96% 09/04/2019 8:14 AM FUEL DOCK ATTENDANT Inhaled Oxygen Concentration - - Weight 129.3 kg (285 lb) 07/14/2019 1:21 PM FUEL DOCK ATTENDANT Height 160 cm (5' 3 ) 07/14/2019 1:21 PM FUEL DOCK ATTENDANT Body Mass Index 50.49 07/14/2019 1:21 PM FUEL DOCK ATTENDANT Plan of Treatment Health Maintenance Due Date [...] 03/16/2017, Additional history exists INFLUENZA VACCINE (#1) 2025 Procedures Procedure Name Priority Date/Time Associated Diagnosis [...] Advance Directives For more information, please contact: [phone] * Full Code (Latest Code Status on [...] 1:24 PM 03/10/2013 2:01 AM Care Teams Seo Coordinator Relationship Specialty [place] [address] [place] [phone] PCP - General Family Practice 02/05/16
--- OUTSIDE RECORDS SUMMARY | 2025-03-23 14:25 | XMS_ITS | Encounter Summary ---
Author Organization [facility] Address [address] [place] [address] Care Team Providers Care Ruby On Rails Engineer Name Role Phone Gildardo Childers MD Primary Care Provider [phone] Encounter Details Date Type Department Care Team (Latest Contact Info) Description 02/27/2008 Outpatient Historical [facility] Endoscopy [facility] [address] [place] [phone] Jaya Montana MD NO ADDRESS ON FILE Unspecified Essential Hypertension Social History Tobacco Use Types Packs/Day Years Used Date Smoking Tobacco: Never Assessed Comments No Sex and Gender Information Value Date Recorded Sex Assigned at Not on file Legal Sex Female 6:28 AM DRAPERY HAND Gender Identity Not on file Sexual Orientation Not on file documented as of this encounter Plan of Treatment Not on file documented as of this encounter Visit Diagnoses Diagnosis Unspecified essential hypertension documented in this encounter Care Teams Ruby On Rails Engineer Relationship Specialty Start Date End Date Gildardo Childers MD [address] [place] [phone] PCP - General Family Practice 02/05/16 documented as of this encounter
--- OUTSIDE RECORDS SUMMARY | 2025-03-23 14:25 | XMS_ITS | Clinical Summary ---
Author Organization [facility] Address [address] [facility] Attn: [place] [address] Care Team Providers Care Generator Man Name Role Phone Gildardo Childers MD Primary Care Provider [phone] Allergies No known active allergies Medications oxygen home delivery Administer in each nostril Home Oxygen Concentrator {yes no:109489} at L/M Rest, L/M Activity, L/M Sleep, Delivery Device: {GINO RX DME O2 DELIVERY DEVICE:18462985} Portability: {yes no:426487}, L/M Rest, L/M Activity, May evaluate for device best for patient needs(E system,home fill, conserving device)Maintain Sats: {GINO RX DME SPO2 GOAL:97343749},L ength of Need: {LENGTH OF NEED:78220580} months . 9 Active insulin detemir (LEVEMIR [...] on file Legal Sex Female 5:53 AM SKIVER MACHINE OPERATOR Gender Identity Not on file Sexual Orientation Not on file Last Filed Vital Signs Vital Sign Reading Time Taken Comments Blood Pressure 140/68 09/04/2019 8:14 AM SKIVER MACHINE OPERATOR Pulse 67 09/04/2019 8:14 AM SKIVER MACHINE OPERATOR Temperature 37.4 C (99.4 F) 09/04/2019 7:11 AM SKIVER MACHINE OPERATOR Respiratory Rate 18 09/04/2019 8:14 AM SKIVER MACHINE OPERATOR Oxygen Saturation - - Inhaled Oxygen Concentration - - Weight 129.3 kg (285 lb) 07/14/2019 1:21 PM SKIVER MACHINE OPERATOR Height 160 cm (5' 3 ) 07/14/2019 1:21 PM SKIVER MACHINE OPERATOR Body Mass Index 50.49 07/14/2019 1:21 PM SKIVER MACHINE OPERATOR Plan of Treatment Health Maintenance [...] Colorectal Cancer Screening 04/01/2020 INFLUENZA VACCINE (#1) 2025 RSV VACCINE (60+ or ) (1 - 1-dose 75+ series) 2026 Care Teams Generator Man Relationship Specialty Start Date End Date Gildardo Childers MD [address] [place] [phone] PCP - General Family Practice 02/05/16
--- OUTSIDE RECORDS SUMMARY | 2025-03-23 14:25 | XMS_ITS | Encounter Summary ---
Author Organization [facility] Address [address] [place] [address] Care Team Providers Care Order Taker Name Role Phone Gildardo Childers MD Primary Care Provider [phone] Encounter Details Date Type Department Care Team (Latest Contact Info) Description 04/03/2008 Outpatient Historical [facility] Endoscopy [facility] [address] [place] [address] Jaya Montana MD NO ADDRESS ON FILE Dysphagia, Unspecified; Unspecified Essential Hypertension; Unspecified Myalgia and Myositis Social History Tobacco Use Types Packs/Day Years Used Date Smoking Tobacco: Never Assessed Comments No Sex and Gender Information Value Date Recorded Sex Assigned at Not on file Legal Sex Female 6:28 AM PASTRY ASSISTANT Gender Identity Not on file Sexual Orientation Not on file documented as of this encounter Plan of Treatment Not on file documented as of this encounter Visit Diagnoses Diagnosis Dysphagia, unspecified(787.20) Dysphagia, unspecified Unspecified essential hypertension Myalgia and myositis, unspecified Mylagia and myositis, unspecified documented in this encounter Care Teams Order Taker Relationship Specialty Start Date End Date Gildardo Childers MD [address] [place] [address] PCP - General Family Practice 02/05/16 documented as of this encounter
--- OUTSIDE RECORDS SUMMARY | 2025-03-23 14:25 | XMS_ITS | Encounter Summary ---
Author Organization [facility] Address [address] [place] [address] Care Team Providers Care Electric Clock Mechanic Name Role Phone Gildardo Childers MD Primary Care Provider [phone] Encounter Details Date Type Department Care Team (Latest Contact Info) Description 06/07/2008 Outpatient Historical [facility] Endoscopy [facility] [address] [place] [phone] Jaya Montana MD NO ADDRESS ON FILE Unspecified Essential Hypertension Social History Tobacco Use Types Packs/Day Years Used Date Smoking Tobacco: Never Assessed Comments No Sex and Gender Information Value Date Recorded Sex Assigned at Not on file Legal Sex Female 6:28 AM PYROMETER OPERATOR Gender Identity Not on file Sexual Orientation Not on file documented as of this encounter Plan of Treatment Not on file documented as of this encounter Visit Diagnoses Diagnosis Unspecified essential hypertension documented in this encounter Care Teams Electric Clock Mechanic Relationship Specialty Start Date End Date Gildardo Childers MD [address] [place] [phone] PCP - General Family Practice 02/05/16 documented as of this encounter
--- OUTSIDE RECORDS SUMMARY | 2025-03-23 14:25 | XMS_ITS | Encounter Summary ---
Author Organization [facility] Address [address] [place] [address] Care Team Providers Care Genetic Counselor Name Role Phone Gildardo Childers MD Primary Care Provider [phone] Encounter Details Date Type Department Care Team (Latest Contact Info) Description 05/11/2008 Outpatient Historical [facility] Endoscopy [facility] [address] [place] [address] Jaya Montana MD NO ADDRESS ON FILE Unspecified Essential Hypertension Social History Tobacco Use Types Packs/Day Years Used Date Smoking Tobacco: Never Assessed Comments No Sex and Gender Information Value Date Recorded Sex Assigned at Not on file Legal Sex Female 6:28 AM CAREER COUNSELOR Gender Identity Not on file Sexual Orientation Not on file documented as of this encounter Plan of Treatment Not on file documented as of this encounter Visit Diagnoses Diagnosis Unspecified essential hypertension documented in this encounter Care Teams Genetic Counselor Relationship Specialty Start Date End Date Gildardo Childers MD [address] [place] [phone] PCP - General Family Practice 02/05/16 documented as of this encounter
--- OUTSIDE RECORDS SUMMARY | 2025-03-23 14:25 | XMS_ITS | Encounter Summary ---
Author Organization [facility] Address [address] [place] [address] Care Team Providers Care Digital Product Specialist Name Role Phone Gildardo Childers MD Primary Care Provider [phone] Reason for Referral * Radiology Services (Routine) - Closed Specialty Diagnoses / Procedures Referred By Contac t Referred To Contact Diagnoses GEORGE (nonalcoholic steatohepatitis) Procedures US ABDOMEN LIMITED Jaya Montana MD Referral ID Status Reason Start Date Expiration Date Visits Re quested Visits Authorized [id number] Closed 09/22/2018 10/23/2019 1 1 ING MACHINE OPERATOR Encounter Details Date Type Department Care Team (Latest Contact Info) Description 09/22/2018 Ancillary Orders [facility] Ultrasound [address] [place] [phone] Jaya Montana MD NO ADDRESS ON FILE [...] on file Legal Sex Female 6:28 AM LASTING MACHINE OPERATOR Gender Identity Not on file [...] focal hepatic lesion. 2. Otherwise unremarkable exam. [id number] Narrative Procedure Note Felipe Montoya MD - [...] focal hepatic lesion. 2. Otherwise unremarkable exam. [id number] Jaya Montana MD US ORDERABLES Final Result documented in this encounter Visit Diagnoses Diagnosis GEORGE (nonalcoholic steatohepatitis) Other chronic nonalcoholic liver disease GEORGE (nonalcoholic steatohepatitis) Other chronic nonalcoholic liver disease documented in this encounter Care Teams Digital Product Specialist Relationship Specialty Start Date End Date Gildardo Childers MD [address] [place] [phone] PCP - General Family Practice 02/05/16 documented as of this encounter
--- OUTSIDE RECORDS SUMMARY | 2025-03-23 14:25 | XMS_ITS | Encounter Summary ---
Author Organization [facility] Address [address] [place] [address] Care Team Providers Care Mill Supervisor Name Role Phone Gildardo Childers MD Primary Care Provider [phone] Encounter Details Date Type Department Care Team (Late st Contact Info) Description 11/08/2006 Outpatient Historical [facility] OBGYNRandy Diaznn [place] [address] [place] [address] Nayana Garcia MD [address] [place] [address] Atrophic Vaginitis (Primary Dx); Uterovaginal Prolapse, Incomplete Social History Tobacco Use Types Packs/Day Years Used Date Smoking Tobacco: Never Assessed Comments Unknown Sex and Gender Information Value Date Recorded Sex Assigned at Not on file Legal Sex Female 6:28 AM TIRE SPOTTER Gender Identity Not on file Sexual Orientation Not on file documented as of this encounter Plan of Treatment Not on file documented as of this encounter Visit Diagnoses Diagnosis Atrophic vaginitis- Primary Postmenopausal atrophic vaginitis Uterovaginal prolapse, incomplete documented in this encounter Care Teams Mill Supervisor Relationship Specialty Start Date End Date Gildardo Childers MD [address] [place] [phone] PCP - General Family Practice 02/05/16 documented as of this encounter
--- OUTSIDE RECORDS SUMMARY | 2025-03-23 14:25 | XMS_ITS | Encounter Summary ---
Author Organization [facility] Address [address] [place] [address] Care Team Providers Care Exterior Designer Name Role Phone Gildardo Childers MD Primary Care Provider Encounter Details Date Type Department Care Team (Late st Contact Info) Description 03/16/2008 Outpatient Historical [facility] [place] [address] [place] [phone] Jaya Montana MD NO ADDRESS ON FILE Social History Tobacco Use Types Packs/Day Years Used Date Smoking Tobacco: Never Assessed Comments No Sex and Gender Information Value Date Recorded Sex Assigned at Not on file 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
--- OUTSIDE RECORDS SUMMARY | 2025-03-23 14:25 | XMS_ITS | Encounter Summary ---
Author Organization [facility] Address [address] [place] [address] Care Team Providers Care Chemical Engineering Professor Name Role Phone Gildardo Childers MD Primary Care Provider [phone] Encounter Details Date Type Department Care Team (Latest Contact Info) Description 01/23/2008 Outpatient Historical [facility] [place] [address] [place] [address] Jaya Montana MD NO ADDRESS ON FILE Other Esophagitis; Unspecified Essential Hypertension Social History Tobacco Use Types Packs/Day Years Used Date Smoking Tobacco: Never Assessed Comments No Sex and Gender Information Value Date Recorded Sex Assigned at Not on file 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
--- OUTSIDE RECORDS SUMMARY | 2025-03-23 14:25 | XMS_ITS | Encounter Summary ---
Author Organization [facility] Address [address] [place] [address] Care Team Providers Care Records Clerk Name Role Phone Gildardo Childers MD Primary Care Provider [phone] Encounter Details Date Type Department Care Team (Latest Contact Info) Description 07/16/2008 Outpatient Historical [facility] [place] [address] [place] [address] Jaya Montana MD NO ADDRESS ON FILE Unspecified Essential Hypertension; Unspecified Myalgia and Myositis Social History Tobacco Use Types Packs/Day Years Used Date Smoking Tobacco: Never Assessed Comments No Sex and Gender Information Value Date Recorded Sex Assigned at Not on file Legal Sex Female 6:28 AM CLINICAL RESEARCH ADMINISTRATOR Gender Identity Not on file Sexual Orientation Not on file documented as of this encounter Plan of Treatment Not on file documented as of this encounter Visit Diagnoses Diagnosis Unspecified essential hypertension Myalgia and myositis, unspecified Mylagia and myositis, unspecified documented in this encounter Care Teams Records Clerk Relationship Specialty Start Date End Date Gildardo Childers MD [address] [place] [phone] PCP - General Family Practice 02/05/16 documented as of this encounter
--- OUTSIDE RECORDS SUMMARY | 2025-03-23 14:25 | XMS_ITS | Encounter Summary ---
Author Organization [facility] Address [address] [place] [address] Care Team Providers Care Personal Vehicle Advisor Name Role Phone Gildardo Childers MD Primary Care Provider [phone] Encounter Details Date Type Department Care Team (Latest Contact Info) Description 02/01/2008 Outpatient Historical [facility] [place] [address] [place] [phone] Jaya Montana MD NO ADDRESS ON FILE Unspecified Essential Hypertension Social History Tobacco Use Types Packs/Day Years Used Date Smoking Tobacco: Never Assessed Comments No Sex and Gender Information Value Date Recorded Sex Assigned at Not on file 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
--- OUTSIDE RECORDS SUMMARY | 2025-03-23 14:25 | XMS_ITS | Encounter Summary ---
Author Organization [facility] Address [address] [place] [address] Care Team Providers Care Main Line Station Engineer Name Role Phone Gildardo Childers MD Primary Care Provider [phone] Encounter Details Date Type Department Care Team (Late st Contact Info) Description 07/05/2008 Outpatient Historical [facility] [place] [address] [place] [phone] Jaya Montana MD NO ADDRESS ON FILE Social History Tobacco Use Types Packs/Day Years Used Date Smoking Tobacco: Never Assessed Comments No Sex and Gender Information Value Date Recorded Sex Assigned at Not on file Legal Sex Female 6:28 AM ESTIMATOR JEWELRY Gender Identity Not on file Sexual Orientation Not on file documented as of this encounter Plan of Treatment Not on file documented as of this encounter Visit Diagnoses Not on filedocumented in this encounter Care Teams Main Line Station Engineer Relationship Specialty [place] [address] [place] [phone] PCP - General Family Practice 02/05/16 documented as of this encounter
--- OUTSIDE RECORDS SUMMARY | 2025-03-23 14:25 | XMS_ITS | Encounter Summary ---
Author Organization [facility] Address [address] [place] [address] Care Team Providers Care Artists' Booking Representative Name Role Phone Gildardo Childers MD Primary Care Provider [phone] Encounter Details Date Type Department Care Team (Latest Contact Info) Description 10/13/2004 Outpatient Historical [facility] Cardiac Scaffold Builder [address] [place] [address] Aly Chu MD [address] [place] [address] [address] [place] [phone] CORON ATHEROSCL VENETIE CORON VESSEL (Primary Dx) Social History Tobacco Use Types Packs/Day Years Used Date Smoking Tobacco: Never Assessed Comments Unknown Sex and Gender Information Value Date Recorded Sex Assigned at Not on file Legal Sex Female 6:28 AM TELEPHONE STATION INSTALLER Gender Identity Not on file Sexual Orientation Not on file documented as of this encounter Plan of Treatment Not on file documented as of this encounter Procedures Procedure Name Priority Date/Time Associated Diagnosis Comments PT AND APTT Routine 10/13/2004 6:02 AM TELEPHONE STATION INSTALLER CBC WITHOUT DIFFERENTIAL Routine 10/13/2004 6:02 AM TELEPHONE STATION INSTALLER BASIC METABOLIC PANEL Routine 10/13/2004 6:02 AM TELEPHONE STATION INSTALLER documented in this encounter Results * PT AND APTT (10/13/2004 6:02 AM TELEPHONE STATION INSTALLER) PROTIME 13.6 12.4 - 14.9 Secs INTERFACE SYSTEM Comment: As of 04 note change in normal range. INR 1.0 INTERFACE SYSTEM Comment: Expected Values for INR: DVT/PE Goal INR 2.5; range 2.0 - 3.0 Valve Replacement Tissue Goal INR 2.5; range 2.0 - 3.0 Mechanical Goal INR 3.0; range 2.5 - 3.5 POST-NV Goal INR 2.5; range 2.0 - 3.0 or Goal 3.0; range 2.5 - 3.5 Atrial Fibrillation Goal INR 2.5; range 2.0 - 3.0 Ischemic Stroke Goal INR 2.5; range 2.0 - 3.0 For additional information see Guidelines for Anticoagulation available from the pharmacy Alyssa Marinelli D. PTT 27.6 24.3 - 37.5 Secs INTERFACE SYSTEM Comment:Therapeutic Range: 10/13/2004 6:02 AM TELEPHONE STATION INSTALLER us Aly Chu MD HEMATOLOGY ORDERABLES Final Re sult INTERFACE SYSTEM Refer to clinic/hospital department * (ABNORMAL) CBC WITHOUT DIFFERENTIAL (10/13/2004 6:02 AM TELEPHONE STATION INSTALLER) WBC 8.5 4.8 - 10.8 K/ul INTERFACE [...] 0.2 K/ul INTERFACE SYSTEM 10/13/2004 6:02 AM TELEPHONE STATION INSTALLER Aly Chu MD HEMATOLOGY ORDERABLES Final Re sult Performing Organization Address [facility] de Phone Number INTERFACE SYSTEM Refer to clinic/hospital department * (ABNORMAL) BASIC METABOLIC PANEL (10/13/2004 6:02 AM TELEPHONE STATION INSTALLER) GLUCOSE 96 70 - 110 mg/dL INTERFACE [...] 10.5 mg/dL INTERFACE SYSTEM 10/13/2004 6:02 AM TELEPHONE STATION INSTALLER Aly Chu MD CHEMISTRY ORDERABLES Final Res ult Performing Organization Address [facility] de Phone Number INTERFACE SYSTEM Refer to clinic/hospital department documented in this encounter Visit Diagnoses Diagnosis Coronary atherosclerosis of [place] coronary artery- Primary documented in this encounter Care Teams Artists' Booking Representative Relationship Specialty Start Date End Date Gildardo Childers MD [address] [place] [phone] PCP - General Family Practice 02/05/16 documented as of this encounter
--- NOTE | 2025-03-23 14:31 | CTR_ITS ---
PROCEDURE INFORMATION: Exam: CT Head Without Contrast Exam date and time: 03/23/2025 11:15 PM Age: 74 years old Clinical indication: Altered mental status/memory loss; EMS arrival for AMS. Patient lethargic and unresponsive. TECHNIQUE: Imaging protocol: Computed tomography of the head without contrast. Radiation optimization: All CT scans at this facility use at least one of these dose optimization techniques: automated exposure control; mA and/or kV adjustment per patient size (includes targeted exams where dose is matched to clinical indication); or iterative reconstruction. COMPARISON: No relevant prior studies available. RADIATION DOSE METRICS: Total DLP (mGy-cm): 1044.88 FINDINGS: Brain: Mild involutional changes of the ventricles and sulci. No hemorrhage. Unremarkable white matter. No mass effect. Cerebral ventricles: No ventriculomegaly. Paranasal sinuses: Visualized sinuses are unremarkable. No fluid levels. Mastoid air cells: Visualized mastoid air cells are well aerated. Bones: Unremarkable. No acute fracture. Soft tissues: Unremarkable. CT/CT head wo con* [id number] IMPRESSION: No acute intracranial abnormality.
--- NOTE | 2025-03-23 14:31 | XR_ITS ---
WS: [id number] Exam: XR chest 1V portable [id number] Date/Time of Exam: 03/23/2025 2:59 PM Reason For Exam: dyspnea/cough Comparison 12/09/2024. The lungs are fully expanded and clear. No consolidating infiltrates. No pleural effusion or pneumothorax. Cardiomediastinal silhouette is unremarkable for technique. Bony structures are intact. XR/XR chest 1V portable [id number] IMPRESSION: 1. No acute process noted.
[2025-03-23 14:48] LABS: ABG PCO2 29.9 mmHg (35-45); ABG PH Result 7.46 (7.35-7.45); Alveolar-Arterial Oxygen Gradi 5.3 mmHg (5-10); Arterial Blood Gas Hematocrit 49.8 % (37-47); Blood Gas Allen Test Pos; Blood Gas Operator Identificat AMH; Blood Gas Sample Site Radial, left; Blood Gas Sample Type Arterial; Carboxyhemoglobin 2.3 %THgb (0.4-20.1); Glucose Level-ABG 144.0 mg/dL (70-115); HCO3 ABG 21.4 mmol/L (22-26); Ionized Calcium Level - ABG 1.2 mmol/L (1.1-1.4); Methemoglobin 0.9 % (0.4-1.5); Oxygen Saturation ABG 96.0; PO2 ABG 71.1 mmHg (80.0-100.0); PO2 FiO2 Ratio Arterial Blood 338; Potassium Level - ABG 4.0 mmol/L (3.5-5.0); Sodium Level - ABG 145.0 mmol/L (131-143)
--- NOTE | 2025-03-23 15:13 | ECG_ITS ---
[facility] Pat Name: Jaylin Resendez Department: Room: Gender: Female Looping Machine Operator: : [id number] Requested By: Robin Birmingham Order Number: [id number] Chanda MD: Dusty Camilo M.D. Measurements Intervals [place] Rate: 190 P: 0 ND: 0 QRS: -13 QRSD: 101 T: 95 QT: 234 QTc: 416 Interpretive Statements ATRIAL FIBRILLATION WITH RAPID VENTRICULAR RESPONSE NONSPECIFIC ST & T-WAVE ABNORMALITY No previous ECG available for comparison Electronically Signed On 03-23-2025 22:36:59 CDT by Dusty Camilo M.D. [email or web address]
--- NOTE | 2025-03-23 15:19 | ED_ITS ---
Documented by User: Robin Larson DO 03/25/25 11:35 HPI - Altered Mental Status 2 General: Chief Complaint: Altered Mental Status Stated Complaint: AMS Time Seen by Provider: 03/23/25 14:31 Related Data Home Medications ?Medication ?Instructions ?Recorded ?Confirmed lidocaine 5 % topical ointment See Rx Instructions .Ro sanya .MELISSA 03/23/25 03/23/25 Previous Rx's ?Medication ?Instructions ?Recorded Electric wheelchair #1 ea 03/23/24 Heel protective boots #2 ea 03/31/24 RSV vaccine #1 ea 05/19/24 omeprazole 20 mg tablet,delayed 20 mg PO DAILY #30 tab s 07/11/24 release albuterol sulfate 90 mcg/actuation 2 inh inhalation QI D PRN shortness 01/22/25 aerosol inhaler of breath or wheezing #8.5 g portia buspirone 5 mg tablet 5 mg PO TID PRN anxiety #60 tabs 01/22/25 cholecalciferol (vitamin D3) 25 25 mcg PO DAILY #30 ta bs 01/22/25 mcg (1,000 unit) tablet gabapentin 400 mg capsule 400 mg PO QID #120 caps 12/26 0 insulin glargine 100 unit/mL (3 40 unit (0.4 mL) SUBCU T QAM #15 mL 01/22/25 mL) subcutaneous pen (Lantus Solostar U-100 Insulin) ipratropium 20 mcg-albuterol 100 1 puff inhalation Q6H #4 grams 01/22/25 mcg/actuation mist for inhalation (Combivent Respimat) lactulose 10 gram/15 mL oral 10 g (15 mL) PO DAILY #30 0 mL 01/22/25 solution pen needle, diabetic 30 gauge x #200 ea 01/22/25 5/16 (Easy Touch Pen Needle) spironolactone 25 mg tablet 25 mg PO DAILY #90 tabs oxycodone 15 mg tablet 15 mg PO Q4H PRN Pain 30 day s #120 03/01/25 tabs Lymphedema pumps #1 ea 03/05/25 cyclobenzaprine 10 mg tablet 10 mg PO TID PRN muscle s pasm #30 03/12/25 tabs doxycycline hyclate 100 mg capsule 100 mg PO BID #20 c aps 03/20/25 Allergies Allergy/AdvReac Type Severity Reaction Status Date / Time No Known Allergies Allergy Verified 03/23/25 14:32 PFSH ED 2 PFSH: Medical History History of myocardial infarction Cirrhosis Diabetes mellitus type 2, controlled Surgical History Hx of cataract surgery History of breast implant History of bilateral mastectomy Bilateral mastectomy due to gangrenous complications of breast implant fracture after mammogram in 1985 Family History Mother CAD (coronary artery disease) [place] Father CAD (coronary artery disease) Diabetes Brother Hypertension Diabetes Sister Diabetes Hypertension Social History Smoking and tobacco/nicotine status: never used tobacco/nicotine Second hand smoke exposure: Yes ( smokes in home) Physical Exam 2 HENMT: COMMON NORMALS: normocephalic, atraumatic and hearing grossly normal bilaterally HEAD & SCALP: normocephalic and atraumatic Resp: COMMON NORMALS: normal respiratory effort, No retractions, No use of accessory muscles and clear to auscultation bilaterally AUSCULTATION: clear to auscultation bilaterally Cardio: COMMON NORMALS: No murmurs present (Cardio) RATE: tachycardic R HYTHM: abnormal rhythm irregularly irregular GI: COMMON NORMALS: Soft to palpation and No hepatosplenomegaly present A USCULTATION: Yes normoactive bowel sounds PALPATION: Yes Soft to palpation, No Tenderness to palpation present (GI), No Guarding due to palpation present (GI) and Yes No hepatosplenomegaly present Extremity: COMMON NORMALS: normal to inspection, capillary refill normal, no clubbing, cyanosis or edema, no calf tenderness and no pedal edema Neuro: DARYL COMA SCALE: document GCS findings Daryl coma scale total score: 9 Skin: COMMON NORMALS: no rashes or lesions noted GENERAL SKIN EXAM: no rashes or lesions noted Course 2 Vital Signs: Vital signs: Vital Signs Temperature 99.5 F 03/23/25 14:23 Pulse Rate 89 03/24/25 03:58 Respiratory Rate 23 H 03/24/25 01:49 Blood Pressure 101/57 08/30/25 03:58 Pulse Oximetry 97 03/24/25 03:58 Oxygen Delivery Me thod Room Air 03/24/25 01:00 MDM - Altered Mental Status Medical Decision Making Patient initially presents obtunded in A-fib with RVR is septic in appearance has been given sepsis fluid bolus initiated antibiotics cultures were done. Lipase is normal alk phos is not elevated. Patient has a known history of cirrhosis her T. bili and transaminases are elevated. Lactate elevated. Believe this is partly due to her cirrhosis. Discussed with hospitalist she is concerned she has a ascending cholangitis. Gallbladder ultrasound and CT pending. Care signed out to Dr. Chacon at change of shift. See final notes for diagnosis and disposition. This patient was seen by the previous physician. He presents with altered mental status, elevated heart rate. She has a white count of 18. Platelet count of 56. Her creatinine so far is 0.8 with a bicarbonate of 19. Her chest x-ray is nonacute. Her gallbladder ultrasound shows no acute findings. No common bile duct dilatation. However, her lactic acid is 9, bilirubin is 6.5. Her urinalysis does not show evidence of UTI. This lady's heart rate has been as high as 180. She is in atrial fibrillation with RVR. Likely due to sepsis versus acute on chronic liver failure. She has been given a sepsis bolus. She has had vancomycin and Zosyn. She was started on diltiazem with no improvement in her heart rate. She was switched to amiodarone, again with little improvement, she is now on both. Diltiazem is at 20, amiodarone is infusing. Her heart rates in the 140s. She is maintaining a pressure 108/74 currently. She is not on oxygen. She is not hypercapnic. Despite this, her GCS is 9. Patient was seen by the hospitalist. He has determine with no critical care, and no gastroenterology, she is not fit to stay at this facility. He is arranging transfer at this point. After trying multiple facilities, none of which had any beds, this patient has been accepted at [facility] in [place]. CT revealed constipation with stercoral proctocolitis. No other acute findings. She received another dose of Zosyn. Heart rate was still 120-140. She was given 125 mcg of IV digoxin, and is now converted to sinus. She is in sinus at 93. Other vitals are stable. She will go and transfer to the above hospital. He remains in serious condition, but is stable for transfer. Digoxin IV converted the patient to sinus rhythm. Heart rate on departure was in the 80s, sinus. Vitals remained stable otherwise. Lab Data 03/23/25 15:42 03/23/25 15:42 Radiology Impressions Chest X-Ray 03/23/25 14:31 IMPRESSION: 1. No acute process noted. Head CT 03/23/25 14:31 IMPRESSION: No acute intracranial abnormality. Abdomen/Pelvis CT 03/23/25 16:50 IMPRESSION: 1. Colonic and rectal thickening with extensive stool burden which may represent changes of constipation and/or fecal impaction or stercoral proctocolitis. 2. Umbilical hernia containing nondilated loop of stool filled colon. 3. Cirrhotic liver morphology with sequela of portal hypertension. Gallbladder Ultrasound 03/23/25 16:50 IMPRESSION: No acute findings. Laboratory Results WBC 17.88 10^3/uL (3.29-11.43) H 03/23/25 15:42 RBC 5.14 10^6/uL (3.85-5.65) 03/23/25 15:42 Hgb 16.30 g/dL (11.27-16.99) 03/23/25 15:42 Hct 50.8 % (36-47) H 03/23/25 15:42 MCV 98.8 fl (85-98) H 03/23/25 15:42 MCH 31.7 pg (27-33) 03/23/25 15:42 MCHC 32.1 g/dL (30-55) 03/23/25 15:42 RDW 13.6 % (12.1-15.1) 03/23/25 15:42 Plt Count 56 10^3/cmm (157-399) L 03/23/25 15:42 MPV 12.6 fL (7.4-10.4) H 03/23/25 15:42 Lymph % (Auto) Not Reportable 03/23/25 15:42 [place] % (Auto) Not Reportable 03/23/25 15:42 Lymph # (Auto) Not Reportable 03/23/25 15:42 [place] # (Auto) Not Reportable 03/23/25 15:42 Total Counted 100 (0-100) 03/23/25 15:42 Atypical Lymphs % 0.0 % (0-5) 03/23/25 15:42 Absolute Neutrophils 15.6 10^3/cmm (1.4-6.5) H 03/23/25 15:42 Segmented Neutrophils 54 % 03/23/25 15:42 Band Neutrophils 33.0 % 03/23/25 15:42 Absolute Lymphocytes 1.1 10^3/cmm (1.2-3.4) L 03/23/25 15:42 Lymphocytes (Manual) 6 % 03/23/25 15:42 Monocytes (Manual) 7.0 % 03/23/25 15:42 Absolute Monocytes 1.3 10^3/cmm (0.1-0.6) H 03/23/25 15:42 Eosinophils (Manual) 0 % 03/23/25 15:42 Absolute Eosinophils 0.0 10^3/cmm (0.0-0.7) 03/23/25 15:42 Basophils (Manual) 0.0 % 03/23/25 15:42 Absolute Basophils 0.0 10^3/cmm (0.0-0.2) 03/23/25 15:42 Toxic Granulation 1+ H 03/23/25 15:42 Platelet Estimate Decreased (Normal) L 03/23/25 15:42 PT 21.80 SECONDS (12.1-14.9) H 03/23/25 15:42 INR 1.78 (0.8-1.2) H 03/23/25 15:42 APTT 33.8 SECONDS (23.9-36.7) 03/23/25 15:42 Specimen Type Arterial 03/23/25 19:20 Sample Site Radial, right 03/23/25 19:20 ABG pH 7.45 (7.35-7.45) 03/23/25 19:20 ABG pCO2 29.0 mmHg (35-45) L 03/23/25 19:20 ABG pO2 70.5 mmHg (80.0-100.0) L 03/23/25 19:20 ABG PO2/FiO2 Ratio 335 03/23/25 19:20 ABG HCO3 20.3 mmol/L (22-26) L 03/23/25 19:20 ABG O2 Saturation 96.0 03/23/25 14:37 ABG Base Excess -2.3 mmol/L (-2.0-2.0) L 03/23/25 19:20 Chano Test Pos 03/23/25 19:20 A-a O2 Gradient 5.3 mmHg (5-10) 03/23/25 14:37 Hematocrit 48.6 % (37-47) H 03/23/25 19:20 Hgb O2 Saturation 93.0 % (95-100) L 03/23/25 14:37 Carboxyhemoglobin 2.3 %THgb (0.4-20.1) 03/23/25 14:37 Methemoglobin 0.9 % (0.4-1.5) 03/23/25 14:37 Total Hemoglobin 16.2 g/dL (12-16) H 03/23/25 14:37 Sodium 145.0 mmol/L (131-143) H 03/23/25 14:37 Potassium 4.0 mmol/L (3.5-5.0) 03/23/25 14:37 Glucose 144.0 mg/dL (70-115) H 03/23/25 14:37 Ionized Calcium 1.2 mmol/L (1.1-1.4) 03/23/25 14:37 O2 Delivery Device Room air 03/23/25 19:20 FiO2 21.0 % 03/23/25 19:20 Auto Body Mechanic Apprentice ID [email or web address] 03/23/25 19:20 Sodium 145 mmol/L (136-145) 03/23/25 15:42 Potassium 3.9 mmol/L (3.5-5.1) 03/23/25 15:42 Chloride 107 mmol/L (98-107) 03/23/25 15:42 Carbon Dioxide 19 mmol/L (22-29) L 03/23/25 15:42 Anion Gap 22.9 (5-19) H 03/23/25 15:42 BUN 32 mg/dL (8-23) H 03/23/25 15:42 Creatinine 0.8 mg/dL (0.5-0.9) 03/23/25 15:42 GFR Calculation Not Reportable 03/23/25 15:42 Glucose 128 mg/dL (65-115) H 03/23/25 15:42 Calculated Osmolality 309 mOsm/kg (285-295) H 03/23/25 15:42 Lactic Acid 8.9 mmol/L (0.5-2.2) H* 03/23/25 15:42 Lactic Acid (Sepsis) 5.7 mmol/L (0.5-2.2) H* 03/23/25 19:42 Calcium 9.3 mg/dL (8.5-10.5) 03/23/25 15:42 Magnesium 1.6 mg/dL (1.7-2.3) L 03/23/25 15:42 Total Bilirubin 6.5 mg/dL (0.15-1.2) H 03/23/25 15:42 AST 87 U/L (0-32) H 03/23/25 15:42 ALT 37 U/L (0-33) H 03/23/25 15:42 Alkaline Phosphatase 85 U/L (35-105) 03/23/25 15:42 Ammonia 65 umol/L (11-51) H 03/23/25 15:42 Creatine Kinase 944 U/L (26-192) H* 03/23/25 15:42 Total Protein 7.0 g/dL (6.6-8.7) 03/23/25 15:42 Albumin 3.0 g/dL (3.5-5.2) L 03/23/25 15:42 Globulin 4.0 g/dL (1.3-4.6) 03/23/25 15:42 Lipase 56 U/L (13-60) 03/23/25 15:42 Urine Color Crane (Yellow) A 03/23/25 18:16 Urine Appearance Clear (CLEAR) 03/23/25 18:16 Urine pH 5.5 (5-7) 03/23/25 18:16 Ur Specific [place] 1.033 (1.005-1.030) H 03/23/25 18:16 Urine Protein 2+ (Negative) A 03/23/25 18:16 Urine Glucose (UA) Negative (Normal) 03/23/25 18:16 Urine Ketones Trace (Negative) 03/23/25 18:16 Urine Blood 2+ (Negative) A 03/23/25 18:16 Urine Nitrate Positive (Negative) A 03/23/25 18:16 Urine Bilirubin 1+ (Negative) H 03/23/25 18:16 Urine Urobilinogen 1.0 mg/dL (Negative) 03/23/25 18:16 Ur Leukocyte Esterase 1+ (Negative) A 03/23/25 18:16 Urine RBC 6-10 /hpf (0-2) 03/23/25 18:16 Urine WBC 0-5 /hpf (0-5) 03/23/25 18:16 Ur Squamous Epith Cells 0-5 /hpf (0-5) 03/23/25 18:16 Amorphous Sediment Not Reportable 03/23/25 18:16 Urine Bacteria None seen /hpf (NONE) 03/23/25 18:16 Hyaline Casts 2.05 /lpf 03/23/25 18:16 Acetaminophen < 5.0 ug/mL (10-30) L 03/23/25 15:42 Ethyl Alcohol < 10 mg/dL (0-10) 03/23/25 15:42 Serum Ketones Negative (Negative) 03/23/25 15:42 Discharge Plan Discharge Patient Disposition: Xfer Short-Term Hosp Clinical Impression: Cirrhosis, Acute on chronic liver failure, Atrial fibrillation with RVR, Acute hepatic encephalopathy, Sepsis, Chronic ulcer of right leg Condition: Critical Referrals: Gildardo Childers MD [Primary Care Provider, [facility]] Patient Instructions: Altered Mental Status (ED) Print Language: Bengali Coding Level of Care Code ED Wildlife Veterinarian for Chg Fwd Documented by User: Mamadou Chacon DO 03/24/25 05:01 HPI - Altered Mental Status 2 General: Chief Complaint: Altered Mental Status Stated Complaint: AMS Time Seen by Provider: 03/23/25 14:31 History of Present Illness: 74-year-old female seen by the previous physician prior to checkout. This lady has a history of chronic cirrhosis. She presents with altered mental status. No definite fever. She is not answering questions appropriately, and therefore history is difficult. Related Data Home Medications ?Medication ?Instructions ?Recorded ?Confirmed lidocaine 5 % topical ointment See Rx Instructions .Ro sanya .COMPLEX 03/23/25 03/23/25 Previous Rx's ?Medication ?Instructions ?Recorded Electric wheelchair #1 ea 03/23/24 Heel protective boots #2 ea 03/31/24 RSV vaccine #1 ea 05/19/24 omeprazole 20 mg tablet,delayed 20 mg PO DAILY #30 tab s 07/11/24 release albuterol sulfate 90 mcg/actuation 2 inh inhalation QI D PRN shortness 01/22/25 aerosol inhaler of breath or wheezing #8.5 g portia buspirone 5 mg tablet 5 mg PO TID PRN anxiety #60 tabs 01/22/25 cholecalciferol (vitamin D3) 25 25 mcg PO DAILY #30 ta bs 01/22/25 mcg (1,000 unit) tablet gabapentin 400 mg capsule 400 mg PO QID #120 caps 12/26 0 insulin glargine 100 unit/mL (3 40 unit (0.4 mL) SUBCU T QAM #15 mL 01/22/25 mL) subcutaneous pen (Lantus Solostar U-100 Insulin) ipratropium 20 mcg-albuterol 100 1 puff inhalation Q6H #4 grams 01/22/25 mcg/actuation mist for inhalation (Combivent Respimat) lactulose 10 gram/15 mL oral 10 g (15 mL) PO DAILY #30 0 mL 01/22/25 solution pen needle, diabetic 30 gauge x #200 ea 01/22/25 5/16 (Easy Touch Pen Needle) spironolactone 25 mg tablet 25 mg PO DAILY #90 tabs oxycodone 15 mg tablet 15 mg PO Q4H PRN Pain 30 day s #120 03/01/25 tabs Lymphedema pumps #1 ea 03/05/25 cyclobenzaprine 10 mg tablet 10 mg PO TID PRN muscle s pasm #30 03/12/25 tabs doxycycline hyclate 100 mg capsule 100 mg PO BID #20 c aps 03/20/25 Allergies Allergy/AdvReac Type Severity Reaction Status Date / Time No Known Allergies Allergy Verified 03/23/25 14:32 PFSH ED 2 PFSH: Medical History History of myocardial infarction Cirrhosis Diabetes mellitus type 2, controlled Surgical History Hx of cataract surgery History of breast implant History of bilateral mastectomy Bilateral mastectomy due to gangrenous complications of breast implant fracture after mammogram in 1985 Family History Mother CAD (coronary artery disease) [place] Father CAD (coronary artery disease) Diabetes Brother Hypertension Diabetes Sister Diabetes Hypertension Social History Smoking and tobacco/nicotine status: never used tobacco/nicotine Second hand smoke exposure: Yes ( smokes in home) Physical Exam 2 Neuro: DARYL COMA SCALE: document GCS findings Warren coma scale eye opening: To pressure Warren coma scale verbal response: Sounds Daryl coma scale motor response: Localising Warren coma scale total score: 9 Course 2 Vital Signs: Vital signs: Vital Signs Temperature 99.5 F 03/23/25 14:23 Pulse Rate 89 03/24/25 03:58 Respiratory Rate 23 H 03/24/25 01:49 Blood Pressure 101/57 03/24/25 03:58 Pulse Oximetry 97 03/24/25 03:58 Oxygen Delivery Me thod Room Air 03/24/25 01:00 MDM - Altered Mental Status Medical Decision Making This patient was seen by the previous physician. He presents with altered mental status, elevated heart rate. She has a white count of 18. Platelet count of 56. Her creatinine so far is 0.8 with a bicarbonate of 19. Her chest x-ray is nonacute. Her gallbladder ultrasound shows no acute findings. No common bile duct dilatation. However, her lactic acid is 9, bilirubin is 6.5. Her urinalysis does not show evidence of UTI. This lady's heart rate has been as high as 180. She is in atrial fibrillation with RVR. Likely due to sepsis versus acute on chronic liver failure. She has been given a sepsis bolus. She has had vancomycin and Zosyn. She was started on diltiazem with no improvement in her heart rate. She was switched to amiodarone, again with little improvement, she is now on both. Diltiazem is at 20, amiodarone is infusing. Her heart rates in the 140s. She is maintaining a pressure 108/74 currently. She is not on oxygen. She is not hypercapnic. Despite this, her GCS is 9. Patient was seen by the hospitalist. He has determine with no critical care, and no gastroenterology, she is not fit to stay at this facility. He is arranging transfer at this point. After trying multiple facilities, none of which had any beds, this patient has been accepted at [facility] in [place]. CT revealed constipation with stercoral proctocolitis. No other acute findings. She received another dose of Zosyn. Heart rate was still 120-140. She was given 125 mcg of IV digoxin, and is now converted to sinus. She is in sinus at 93. Other vitals are stable. She will go and transfer to the above hospital. He remains in serious condition, but is stable for transfer. Digoxin IV converted the patient to sinus rhythm. Heart rate on departure was in the 80s, sinus. Vitals remained stable otherwise. Lab Data 03/23/25 15:42 03/23/25 15:42 Radiology Impressions Chest X-Ray 03/23/25 14:31 IMPRESSION: 1. No acute process noted. Head CT 03/23/25 14:31 IMPRESSION: No acute intracranial abnormality. Abdomen/Pelvis CT 03/23/25 16:50 IMPRESSION: 1. Colonic and rectal thickening with extensive stool burden which may represent changes of constipation and/or fecal impaction or stercoral proctocolitis. 2. Umbilical hernia containing nondilated loop of stool filled colon. 3. Cirrhotic liver morphology with sequela of portal hypertension. Gallbladder Ultrasound 03/23/25 16:50 IMPRESSION: No acute findings. Laboratory Results WBC 17.88 10^3/uL (3.29-11.43) H 03/23/25 15:42 RBC 5.14 10^6/uL (3.85-5.65) 03/23/25 15:42 Hgb 16.30 g/dL (11.27-16.99) 03/23/25 15:42 Hct 50.8 % (36-47) H 03/23/25 15:42 MCV 98.8 fl (85-98) H 03/23/25 15:42 MCH 31.7 pg (27-33) 03/23/25 15:42 MCHC 32.1 g/dL (30-55) 03/23/25 15:42 RDW 13.6 % (12.1-15.1) 03/23/25 15:42 Plt Count 56 10^3/cmm (157-399) L 03/23/25 15:42 MPV 12.6 fL (7.4-10.4) H 03/23/25 15:42 Lymph % (Auto) Not Reportable 03/23/25 15:42 [place] % (Auto) Not Reportable 03/23/25 15:42 Lymph # (Auto) Not Reportable 03/23/25 15:42 [place] # (Auto) Not Reportable 03/23/25 15:42 Total Counted 100 (0-100) 03/23/25 15:42 Atypical Lymphs % 0.0 % (0-5) 03/23/25 15:42 Absolute Neutrophils 15.6 10^3/cmm (1.4-6.5) H 03/23/25 15:42 Segmented Neutrophils 54 % 03/23/25 15:42 Band Neutrophils 33.0 % 03/23/25 15:42 Absolute Lymphocytes 1.1 10^3/cmm (1.2-3.4) L 03/23/25 15:42 Lymphocytes (Manual) 6 % 03/23/25 15:42 Monocytes (Manual) 7.0 % 03/23/25 15:42 Absolute Monocytes 1.3 10^3/cmm (0.1-0.6) H 03/23/25 15:42 Eosinophils (Manual) 0 % 03/23/25 15:42 Absolute Eosinophils 0.0 10^3/cmm (0.0-0.7) 03/23/25 15:42 Basophils (Manual) 0.0 % 03/23/25 15:42 Absolute Basophils 0.0 10^3/cmm (0.0-0.2) 03/23/25 15:42 Toxic Granulation 1+ H 03/23/25 15:42 Platelet Estimate Decreased (Normal) L 03/23/25 15:42 PT 21.80 SECONDS (12.1-14.9) H 03/23/25 15:42 INR 1.78 (0.8-1.2) H 03/23/25 15:42 APTT 33.8 SECONDS (23.9-36.7) 03/23/25 15:42 Specimen Type Arterial 03/23/25 19:20 Sample Site Radial, right 03/23/25 19:20 ABG pH 7.45 (7.35-7.45) 03/23/25 19:20 ABG pCO2 29.0 mmHg (35-45) L 03/23/25 19:20 ABG pO2 70.5 mmHg (80.0-100.0) L 03/23/25 19:20 ABG PO2/FiO2 Ratio 335 03/23/25 19:20 ABG HCO3 20.3 mmol/L (22-26) L 03/23/25 19:20 ABG O2 Saturation 96.0 03/23/25 14:37 ABG Base Excess -2.3 mmol/L (-2.0-2.0) L 03/23/25 19:20 Chano Test Pos 03/23/25 19:20 A-a O2 Gradient 5.3 mmHg (5-10) 03/23/25 14:37 Hematocrit 48.6 % (37-47) H 03/23/25 19:20 Hgb O2 Saturation 93.0 % (95-100) L 03/23/25 14:37 Carboxyhemoglobin 2.3 %THgb (0.4-20.1) 03/23/25 14:37 Methemoglobin 0.9 % (0.4-1.5) 03/23/25 14:37 Total Hemoglobin 16.2 g/dL (12-16) H 03/23/25 14:37 Sodium 145.0 mmol/L (131-143) H 03/23/25 14:37 Potassium 4.0 mmol/L (3.5-5.0) 03/23/25 14:37 Glucose 144.0 mg/dL (70-115) H 03/23/25 14:37 Ionized Calcium 1.2 mmol/L (1.1-1.4) 03/23/25 14:37 O2 Delivery Device Room air 03/23/25 19:20 FiO2 21.0 % 03/23/25 19:20 Auto Body Mechanic Apprentice ID [email or web address] 03/23/25 19:20 Sodium 145 mmol/L (136-145) 03/23/25 15:42 Potassium 3.9 mmol/L (3.5-5.1) 03/23/25 15:42 Chloride 107 mmol/L (98-107) 03/23/25 15:42 Carbon Dioxide 19 mmol/L (22-29) L 03/23/25 15:42 Anion Gap 22.9 (5-19) H 03/23/25 15:42 BUN 32 mg/dL (8-23) H 03/23/25 15:42 Creatinine 0.8 mg/dL (0.5-0.9) 03/23/25 15:42 GFR Calculation Not Reportable 03/23/25 15:42 Glucose 128 mg/dL (65-115) H 03/23/25 15:42 Calculated Osmolality 309 mOsm/kg (285-295) H 03/23/25 15:42 Lactic Acid 8.9 mmol/L (0.5-2.2) H* 03/23/25 15:42 Lactic Acid (Sepsis) 5.7 mmol/L (0.5-2.2) H* 03/23/25 19:42 Calcium 9.3 mg/dL (8.5-10.5) 03/23/25 15:42 Magnesium 1.6 mg/dL (1.7-2.3) L 03/23/25 15:42 Total Bilirubin 6.5 mg/dL (0.15-1.2) H 03/23/25 15:42 AST 87 U/L (0-32) H 03/23/25 15:42 ALT 37 U/L (0-33) H 03/23/25 15:42 Alkaline Phosphatase 85 U/L (35-105) 03/23/25 15:42 Ammonia 65 umol/L (11-51) H 03/23/25 15:42 Creatine Kinase 944 U/L (26-192) H* 03/23/25 15:42 Total Protein 7.0 g/dL (6.6-8.7) 03/23/25 15:42 Albumin 3.0 g/dL (3.5-5.2) L 03/23/25 15:42 Globulin 4.0 g/dL (1.3-4.6) 03/23/25 15:42 Lipase 56 U/L (13-60) 03/23/25 15:42 Urine Color Crane (Yellow) A 03/23/25 18:16 Urine Appearance Clear (CLEAR) 03/23/25 18:16 Urine pH 5.5 (5-7) 03/23/25 18:16 Ur Specific [place] 1.033 (1.005-1.030) H 03/23/25 18:16 Urine Protein 2+ (Negative) A 03/23/25 18:16 Urine Glucose (UA) Negative (Normal) 03/23/25 18:16 Urine Ketones Trace (Negative) 03/23/25 18:16 Urine Blood 2+ (Negative) A 03/23/25 18:16 Urine Nitrate Positive (Negative) A 03/23/25 18:16 Urine Bilirubin 1+ (Negative) H 03/23/25 18:16 Urine Urobilinogen 1.0 mg/dL (Negative) 03/23/25 18:16 Ur Leukocyte Esterase 1+ (Negative) A 03/23/25 18:16 Urine RBC 6-10 /hpf (0-2) 03/23/25 18:16 Urine WBC 0-5 /hpf (0-5) 03/23/25 18:16 Ur Squamous Epith Cells 0-5 /hpf (0-5) 03/23/25 18:16 Amorphous Sediment Not Reportable 03/23/25 18:16 Urine Bacteria None seen /hpf (NONE) 03/23/25 18:16 Hyaline Casts 2.05 /lpf 03/23/25 18:16 Acetaminophen < 5.0 ug/mL (10-30) L 03/23/25 15:42 Ethyl Alcohol < 10 mg/dL (0-10) 03/23/25 15:42 Serum Ketones Negative (Negative) 03/23/25 15:42 All radiology interpretation(s) finalized by discharge Critical Care Time 2 Critical Care Time: Critical Care Time: Yes Total Critical Care Time: 90 Attestation: This case had a high probability of a clinically significant, sudden, or life threatening deterioration of this patient's condition which required my full and direct attention, intervention and personal management. Time does not include any procedures performed. Discharge Plan Discharge Patient Disposition: Xfer Short-Term Hosp Clinical Impression: Cirrhosis, Acute on chronic liver failure, Atrial fibrillation with RVR, Acute hepatic encephalopathy, Sepsis, Chronic ulcer of right leg Condition: Critical Referrals: Gildardo Childers MD [Primary Care Provider, [facility]] Patient Instructions: Altered Mental Status (ED) Print Language: Bengali Coding Level of Care Code ED Wildlife Veterinarian for Juni Fwd
--- NOTE | 2025-03-23 15:28 | PC.PHAR ---
Ada Ham faxed pts' current med list with last fill date and day supply
[2025-03-23 15:50] LABS: Hematocrit 50.8 % (36-47); Hemoglobin 16.30 g/dL (11.27-16.99); Mean Corpuscular HGB Conc 32.1 g/dL (30-55); Mean Corpuscular Hemoglobin 31.7 pg (27-33); Mean Corpuscular Volume 98.8 fl (85-98); Platelet Count 56 10^3/cmm (157-399); Red Blood Count 5.14 10^6/uL (3.85-5.65); White Blood Count 17.88 10^3/uL (3.29-11.43)
[2025-03-23] MEDS: dilTIAZem 5 mg/mL SDV 5 mL 10 MG IVP (15:53)
[2025-03-23] MEDS: dilTIAZem 100 MG in sodium chloride 0.9% (add-van) 100 ML 10 MG IV (15:54)
[2025-03-23 15:59] LABS: Ketone (Acetest) Serum Negative (Negative)
[2025-03-23 16:02] LABS: Slide Review Slide Review Perform
[2025-03-23 16:04] LABS: INR 1.78 (0.8-1.2); Prothrombin Time 21.80 SECONDS (12.1-14.9)
[2025-03-23 16:05] LABS: Absolute Segmented Neutrophil 9.7 10/cmm (1.6-7.1); Band Neutrophils Absolute 5.9 10^3/cmm (0.0-1.2); Partial Thromboplastin Time 33.8 SECONDS (23.9-36.7); Total Cells Counted 100 (0-100)
[2025-03-23 16:06] LABS: Toxic Granulation 1+
[2025-03-23 16:07] LABS: Atypical Lymphs 0.0 % (0-5)
[2025-03-23 16:08] LABS: Alanine Aminotransferase 37 U/L (0-33); Albumin Level 3.0 g/dL (3.5-5.2); Alkaline Phosphatase 85 U/L (35-105); Anion Gap 22.9 (5-19); Aspartate Amino Transferase 87 U/L (0-32); Blood Urea Nitrogen 32 mg/dL (8-23); Calcium 9.3 mg/dL (8.5-10.5); Carbon Dioxide 19 mmol/L (22-29); Chloride 107 mmol/L (98-107); Globulin 4.0 g/dL (1.3-4.6); Glucose 128 mg/dL (65-115); Lipase 56 U/L (13-60); Magnesium 1.6 mg/dL (1.7-2.3); Osmolality Calculated 309 mOsm/kg (285-295); Potassium 3.9 mmol/L (3.5-5.1); Sodium 145 mmol/L (136-145); Total Protein 7.0 g/dL (6.6-8.7)
[2025-03-23 16:10] LABS: Alcohol Level < 10 mg/dL (0-10); Lactic Sepsis W/Reflex 8.9 mmol/L (0.5-2.2)
[2025-03-23 16:11] LABS: Reflex Lactate Order REFLEX LACTIC ORDERD
[2025-03-23 16:13] LABS: Ammonia 65 umol/L (11-51)
[2025-03-23] MEDS: amiodarone 150 MG/100 ML PREMIX 400 MG IV (16:24)
--- NOTE | 2025-03-23 16:50 | CTR_ITS ---
PROCEDURE INFORMATION: Exam: CT Abdomen And Pelvis Without Contrast Exam date and time: 03/23/2025 11:18 PM Age: 74 years old Clinical indication: Abnormal findings; Abnormal lab test; Elevated liver enzymes and other: Elevated lactic acid and bilirubin; Prior surgery; Surgery date: 6+ months; Surgery type: Bilat mastectomy. Gb. Hysterectomy; Wbc of 18k with elevated lactic acid and bilirubin; Additional info: Abdominal pain TECHNIQUE: Imaging protocol: Computed tomography of the abdomen and pelvis without contrast. Radiation optimization: All CT scans at this facility use at least one of these dose optimization techniques: automated exposure control; mA and/or kV adjustment per patient size (includes targeted exams where dose is matched to clinical indication); or iterative reconstruction. COMPARISON: CR XR hip LT 2-3V wo/w pel* [id number] 06/01/2023 11:38 AM RADIATION DOSE METRICS: Total DLP (mGy-cm): 1845.11 FINDINGS: Lungs: Unremarkable. Liver: Nodular contour of the liver. Gallbladder and biliary ducts: Cholecystectomy. Pancreas: Normal. No ductal dilation. Spleen: Enlarged spleen measures up to 14.0 cm. New line splenic varices are present. Adrenal glands: Normal. No mass. Kidneys and ureters: Normal. No hydronephrosis. Stomach and bowel: No small bowel obstruction. Mucosal thickening of the colon with extensive colonic and rectal stool burden. Appendix: No evidence of appendicitis. Intraperitoneal space: Unremarkable. No free air. No significant fluid collection. Vasculature: Atherosclerosis of the abdominal aorta. Lymph nodes: Unremarkable. No enlarged lymph nodes. Urinary bladder: Bladder is collapsed about Li catheter. Reproductive: Hysterectomy. Bones/joints: No acute fracture. Soft tissues: Ventral abdominal wall hernia containing nondilated loop of colon. CT/CT abdomen pelvis wo con [id number] IMPRESSION: 1. Colonic and rectal thickening with extensive stool burden which may represent changes of constipation and/or fecal impaction or stercoral proctocolitis. 2. Umbilical hernia containing nondilated loop of stool filled colon. 3. Cirrhotic liver morphology with sequela of portal hypertension.
--- NOTE | 2025-03-23 16:50 | USR_ITS ---
PROCEDURE INFORMATION: Exam: US Abdomen, Limited; Right Upper Quadrant Exam date and time: 03/23/2025 5:37 PM Age: 74 years old Clinical indication: Abnormal findings; Abnormal lab test; Abnormal function test of other organs/systems; ? Gb removed; Additional info: Common bile duct TECHNIQUE: Imaging protocol: Real time ultrasound of the abdomen with image documentation. Limited exam focused on the right upper quadrant. COMPARISON: US liver [id number] 06/01/2023 9:37 AM FINDINGS: Liver: Heterogeneous appearance of parenchyma, nonspecific. Otherwise Normal. No masses. Gallbladder: Likely surgically absent, patient unable to respond Biliary ducts: Normal. No stones. No dilation. Pancreas: Visualized pancreas is unremarkable. Questionable mild prominence of pancreatic duct, doubtful clinical significance. Right kidney: Normal. No mass. No hydronephrosis. US/US gall bladder [id number] IMPRESSION: No acute findings.
[2025-03-23] MEDS: piperacillin-tazobactam 3.375 GM in sodium chloride 0.9% (plus) 50 ML IV (17:29)
[2025-03-23] MEDS: ketamine 100 mg/mL Inj 5 mL 200 MG IVP (18:34)
--- NOTE | 2025-03-23 19:03 | PC.NURSE ---
DR TORRES GAVE VERBAL INSTRUCTION TO INCREASE CARDIZEM DRIP TO 10 AND MOVE PATIENT TO ROOM 11 DUE TO POSSIBILITY OF REQUIRING TO CARDIOVERT PATIENT.
[2025-03-23 19:32] LABS: ABG PCO2 29.0 mmHg (35-45); ABG PH Result 7.45 (7.35-7.45); Arterial Blood Gas Hematocrit 48.6 % (37-47); Blood Gas Allen Test Pos; Blood Gas Operator Identificat gerca; Blood Gas Sample Site Radial, right; Blood Gas Sample Type Arterial; HCO3 ABG 20.3 mmol/L (22-26); PO2 ABG 70.5 mmHg (80.0-100.0); PO2 FiO2 Ratio Arterial Blood 335
[2025-03-23 19:43] LABS: Glucose Urine UA Negative (Normal); Nitrate Urine Positive (Negative)
[2025-03-23 19:45] LABS: Add Urine Microscopic? YES
--- NOTE | 2025-03-23 19:51 | PM.CONSULT ---
Providers/Reason For Consult Consulting Physician/Specialty*: Hospitalist/ Dr Wilton Macias Reason for Consult*: Altered mental state possible sepsis for admission Primary Care Provider: Gildardo Childers MD History of Present Illness History of Present Illness Jaylin Resendez is a 74 year old female With past medical history of liver cirrhosis, thrombocytopenia, s/p cholecystectomy came with altered mental status. Further workup revealed patient with high bilirubin, deranged liver enzymes, WBCs of 17,000, lactate of 8.9 increased CPK 944. Hypomagnesemia of 1.6 the patient UA was sent and was pending. The patient was seen was having GCS around 8-9, able to protect her airways. I did her blood gas to make sure that she is not having hypercapnic after discussing with the night/evening shift ED physician. And further I secured the second IV line on the right arm for further fluid resuscitation. Seeing her profile after discussing with the morning consulted ED physician I was having differential diagnosis of acute cholangitis as the patient was having increased bilirubin altered mentation includes leukocytosis and needing of further imaging studies. The differential diagnosis also includes acute on chronic liver failure, sepsis, and other intra-abdominal source of increased total bili increased liver enzymes and to rule out other possible causes that includes toxins or medications. The ED physician requested abdominal ultrasound gallbladder which did not show any pathology however considering high lactate CT scan of the abdomen and pelvis also requested but it was not done till now. The patient was evaluated and was drowsy, however alert when taken her name. Generalized skin jaundiced with orange color urine in the urinary bag. The patient GCS was around 7-8. Able to protect her airways based on the blood gas drawn. I discussed her case with the new shift ED physician Dr. Chacon and considering her case after unanimous decision it is in the best interest of the patient to be transferred to a facility where subspecialty of gastroenterology along with ICU care is available. I initiated a transfer to [facility] after this discussion with the ED physician in the evening shift. The transfer center further informed that she has been following with the GI already here. Therefore I further emphasized for the continuity of care and management of her current situation and the limitation of resources and expertise available in [facility], to consider her urgent transfer. To follow-up with the transfer center. Review of Systems General: Reports: ROS unobtainable due to mental status Medications/Allergies Home Medications ?Medication ?Instructions ?Recorded ?Confirmed ?Last Taken ?Type Electric wheelchair #1 ea 03/23/24 03/23/25 Unknown Rx Heel protective boots #2 ea 03/31/24 03/23/25 Unknown Rx RSV vaccine #1 ea 05/19/24 03/23/25 Unknown Rx omeprazole 20 mg tablet,delayed 20 mg PO DAILY #30 tabs 07/11/24 03/23/25 Unknown Rx release albuterol sulfate 90 mcg/actuation 2 inh inhalation QID PRN shortness 01/22/25 03/23/25 Unknown Rx aerosol inhaler of breath or wheezing #8.5 grams buspirone 5 mg tablet 5 mg PO TID PRN anxiety #60 tabs 01/22/25 03/23/25 Unknown Rx cholecalciferol (vitamin D3) 25 25 mcg PO DAILY #30 tabs 01/22/25 03/23/25 Unknown Rx mcg (1,000 unit) tablet gabapentin 400 mg capsule 400 mg PO QID #120 caps 01/22/25 03/23/25 Unknown Rx insulin glargine 100 unit/mL (3 40 unit (0.4 mL) SUBCUT QAM #15 mL 01/22/25 03/23/25 Unknown Rx mL) subcutaneous pen (Lantus Solostar U-100 Insulin) ipratropium 20 mcg-albuterol 100 1 puff inhalation Q6H #4 grams 01/22/25 03/23/25 Unknown Rx mcg/actuation mist for inhalation (Combivent Respimat) lactulose 10 gram/15 mL oral 10 g (15 mL) PO DAILY #300 mL 01/22/25 03/23/25 Unknown Rx solution pen needle, diabetic 30 gauge x #200 ea 01/22/25 03/23/25 Unknown Rx 5/16 (Easy Touch Pen Needle) spironolactone 25 mg tablet 25 mg PO DAILY #90 tabs 01/22/25 03/23/25 Unknown Rx oxycodone 15 mg tablet 15 mg PO Q4H PRN Pain 30 days #120 03/01/25 03/23/25 Unknown Rx tabs Lymphedema pumps #1 ea 03/05/25 03/23/25 Unknown Rx cyclobenzaprine 10 mg tablet 10 mg PO TID PRN muscle spasm #30 03/12/25 03/23/25 Unknown Rx tabs doxycycline hyclate 100 mg capsule 100 mg PO BID #20 caps 03/20/25 03/23/25 Unknown Rx lidocaine 5 % topical ointment See Rx Instructions .Route .COMPLEX 03/23/25 03/23/25 Unknown History Allergies Allergy/AdvReac Type Severity Reaction Status Date / Time No Known Allergies Allergy Verified 03/23/25 14:32 Current Medications Generic Name Dose Route Start Last Admin Trade Name Germán PRN Reason Stop Dose Admin Diltiazem HCl 100 mg/ Sodium 100 mls @ 0 mls/hr 03/23/25 15:15 03/23/25 19:03 Chloride IV 10 mg/hr .Q0M BERTHA 10 mls/hr Protocol Titration Per Protocol Amiodarone HCl/Dextrose 360 mg in 200 mls @ 0 mls/hr 03/23/25 16:16 03/23/25 16:59 Nexterone IV 1 mg/min .Q0M BERTHA 33.33 mls/hr Protocol Administration Per Protocol PFSH Acute PFSH: Medical History (Updated 03/23/25 @ 20:10 by Gilberto Núñez MD) History of myocardial infarction Cirrhosis Diabetes mellitus type 2, controlled Surgical History Hx of cataract surgery History of breast implant History of bilateral mastectomy Bilateral mastectomy due to gangrenous complications of breast implant fracture after mammogram in 1985 Family History Mother CAD (coronary artery disease) [place] Father CAD (coronary artery disease) Diabetes Brother Hypertension Diabetes Sister Diabetes Hypertension Social History Smoking and tobacco/nicotine status: never used tobacco/nicotine Second hand smoke exposure: Yes ( smokes in home) Vitals/I&O/Wt Last Vital Signs Temp 99.5 F 03/23/25 14:23 Pulse 142 H 03/23/25 19:28 Resp 38 H 03/23/25 19:28 BP 97/78 03/23/25 18:54 Pulse Ox 96 03/23/25 16:59 O2 Del Method Room Air 03/23/25 16:59 03/23/25 03/23/25 03/23/25 06:59 14:59 22:59 Intake Total 7.166 / 7.166 Balance 7.166 / 7.166 Physical Exam Narrative: General: Disoriented, skin jaundiced and pallor positive HEENT: Hypercapnic at room air Cardio: Sinus tachycardia unable to comment on the murmurs due to increased heart rate. However no JVD Respiratory: Reduced bilateral air entry at the bases however good air entry at the mid zone and upper zones without any wheezes GI: Abdomen soft, nontender, nondistended, no organomegaly found however patient is not responding much while deep palpation. Neuro: The patient GCS is around 8/9. Alert moving all all extremities but drowsy. Unable to assess appropriately. Behavior: Drowsy Extremities: There is pedal edema Skin: Generalized jaundice with orange color urine in the urinary bag Data 03/23/25 15:42 03/23/25 15:42 A&P Assessment and plan 1. Confusion: 2. Acute cholangitis: 3. Acute on chronic liver failure: 4. Atrial fibrillation: 5. Cirrhosis: 6. Diabetes mellitus type 2, controlled: Plan: Altered mentation secondary to sepsis: h/o liver cirrhosis Based on patient increased T. bili, leukocytosis, increased ammonia, increased lactate and altered mentation Differentials include acute cholangitis, acute on chronic liver failure, sepsis, and to rule out other metabolic/toxic causes - Blood cultures/urine cultures to send - Fluid bolus and repeat lactate - Broad-spectrum antibiotics to initiate with Zosyn and Vanco -[facility] the patient was already following with GI there for the patient transferred to ICU -CT scan abdomen pelvis to look for any cause of sepsis -Maintain 2 IV lines for fluid resuscitation Atrial fibrillation: Uncontrolled To continue on amiodarone drip and to follow the heart rate If the patient becomes hypotensive consider cardioversion Possible underlying etiology sepsis/acute on chronic liver failure and other causes as mentioned above triggering atrial fibrillation Therefore it is important to control the underlying cause VTE: SCD Keep n.p.o. Low threshold for intubation considering her drowsy state, blood gas did not show any hypercapnia therefore the patient is able to protect her airways The case has been thoroughly discussed with the evening shift ED physician Dr. Chacon. Transfer center has been called and initiated transfer to a facility where subspecialty of GI and ICU is available in the best interest of the patient and to manage her condition considering limitation of services and experts in [facility]. Patient is for transfer and therefore with such lab derangement and lack of expertise with regards to her condition, it is better not to admit and to transfer promptly considering it as in the best interest and optimal care of the patient. PDMP PDMP Reviewed: Not Reviewed Consult Attestations Medical Necessity Statement: The patient will stay more than 2 midnights however awaiting transfer promptly to a higher level of facility Time Spent in Patient Care: 16 - 35 minutes (>than 50% of time spent in counselling and/or direct pt care on unit). Critical Care Time: The high probability of a clinically significant, sudden or life threatening deterioration, as referenced in this documentation, required my full and direct attention, intervention and personal management. The critical care time shown is in addition to time spent performing any reported separately billable procedures and includes the following: [x] Data and vital sign review and interpretation [x] Patient assessment, examination and intervention [x] Medication orders and management [x] Patient/Family updates as able [x] Care Coordination and Documentation. Coding Level of Care Code Critical Care >/= 30 minutes Diagnoses Confusion R41.0 Acute cholangitis K83.09 Acute on chronic liver failure K72.00; K72.10 Atrial fibrillation I48.91 Cirrhosis K74.60 Diabetes mellitus type 2, controlled E11.9
--- NOTE | 2025-03-23 19:51 | PC.NURSE ---
WHEN FAMILY PRESENT AT BEDSIDE IN ROOM 11, PATIENT WAS EDUCATED THAT PATIENT MAY REQUIRE CARDIOVERSION DUE TO DANGEROUSLY HIGH HEART RATE DESPITE MEDICATION AND TREATMENT. FAMILY VERBALIZED UNDERSTANDING. FAMILY THEN DECIDED TO LEAVE BEDSIDE TO STEP OUTSIDE, AND PATIENT WAS TRANSFERRED TO ROOM 11.
[2025-03-23 19:58] LABS: Specific Gravity, Urine 1.033 (1.005-1.030)
[2025-03-23 19:59] LABS: Universal Test for UA Present (0)
--- NOTE | 2025-03-23 20:01 | PC.NURSE ---
DR TORRES NOTIFIED OF CARDIZEM PARAMETERS THAT ARE SET TO MAX OF 15MG. VERBAL ORDER GIVEN TO INCREASE CARDIZEM TO 20MG/HR. PUMP INCREASED.
[2025-03-23 20:28] LABS: Lactic Acid level (Lactate) 5.7 mmol/L (0.5-2.2)
[2025-03-24 00:14] LABS: Acetaminophen < 5.0 ug/mL (10-30)
[2025-03-24] MEDS: digoxin 250 mcg/ml INJ 2 mL 125 MCG IVP (00:47)
[2025-03-24] MEDS: piperacillin-tazobactam 3.375 GM in sodium chloride 0.9% (plus) 50 ML IV (00:47)
[2025-03-24 01:00] VITALS: BP 112/4; PULSE 89; RESP 32; O2SAT 96
--- NOTE | 2025-03-24 01:05 | ECG_ITS ---
[facility]: [facility]25-[facility]-24 Pat Name: Jaylin Resendez Department: Room: Gender: Female Machine [employer]: : 1950 Requested By: Mamadou Ewing Order Number: [id number] Chanda MD: Porfirio Lopez M.D. Measurements Intervals [place] Rate: 87 P: 47 AK: 140 QRS: -15 QRSD: 113 T: 63 QT: 374 QTc: 452 Interpretive Statements SINUS RHYTHM POSSIBLE LATERAL MYOCARDIAL INFARCTION , PROBABLY OLD [30 ms Q WAVE IN I/aVL/V5/V6] Compared to ECG 03/23/2025 15:13:44 Atrial fibrillation no longer present TRACING ARTIFACT DECREASED Electronically Signed On 03-26-2025 14:09:20 CDT by Porfirio Lopez M.D. [email or web address]
[2025-03-24 01:26] VITALS: BP 104/55; PULSE 91; RESP 28; O2SAT 97
--- NOTE | 2025-03-24 01:47 | PC.NURSE ---
REPORT CALLED TO OTIS DAVIS RN IN [facility] IN [facility]. ALL QUESTIONS AND CONCERNS WERE ADDRESSED AT TIME OF REPORT. PT TO BE TRANSFERRED TO BED #[id number]. REPORT CALLED TO [phone].
[2025-03-24 01:49] VITALS: BP 96/52; PULSE 92; RESP 23; O2SAT 96
[2025-03-24 03:58] VITALS: BP 101/57; PULSE 89; O2SAT 97
== END 2025-03-24 04:00 | disposition short-term general hospital (02) ==
PROVIDERS: Family Medicine; Emergency Provider Emergency Medicine; PCP Family Medicine
DX: K74.60 Unspecified cirrhosis of liver (principal); K72.00 Acute and subacute hepatic failure without coma; K72.10 Chronic hepatic failure without coma; I48.20 Chronic atrial fibrillation, unspecified; K76.82 Hepatic encephalopathy; A41.9 Sepsis, unspecified organism; L97.919 Non-pressure chronic ulcer of unspecified part of right lower leg with unspecified severity; E11.9 Type 2 diabetes mellitus without complications
CPT/HCPCS: 36415; 36600; 70450; 71045; 74176; 76705; 80051; 80053; 80307; 81001; 82009; 82140; 82330; 82550; 82803; 82805; 83605; 83690; 83735; 85007; 85025; 85610; 85730; 87040; 87086; 93005; 96365; 96366; 96367; 96375; 99291; A4222; J0283; J1160; J2543; J3373; J3490; J7030; J7040; J7050; J9999